=== PATIENT | female | born 1935 | race Caucasian/White ===

== ENCOUNTER 2019-08-10 09:43 | Outpatient (CLI) | payer MEDICARE, SELFPAY ==
--- NOTE | ~2019-08-10 | XR_ITS ---
XR chest 2V 08/10/2019 10:11 Indication: Dyspnea with exertion. Obstructive lung disease. Procedure: 2 view chest Comparison: 01/08/2018 Findings: Calcified mediastinal lymph nodes, consistent with chronic granulomatous disease. There is bibasilar atelectasis. No focal pneumonia, edema or effusion. There are scattered calcified granuloma s. No pneumothorax. Impression: 1: Bibasilar atelectasis. Reviewed, dictated and finalized at location A. Impression: 1: Bibasilar atelectasis.
--- NOTE | 2019-08-10 19:20 | WPDPFTINT ---
PFT Interpretation PFT Interpretation: DOS: 08/10/2019 REQUESTING: Alejandra Baker MD REASON FOR TESTING: Dyspnea on exertion PULMONARY FUNCTION TESTS Spirometry: Normal FEV1, 89%, 1.2 L. Normal FVC 85%. Mild decrease FEV1/FVC. Very low UBN49-84%. No bronchodilator was given. Lung volumes: Normal TLC, 94%. Normal RV. Increased RV/TLC ratio consistent with air trapping. Increased airway resistance 164%. Diffusion: DLCO is 65%, mildly decreased. Flow volume loop: Scooping of the expiratory limb, consistent with obstruction. IMPRESSION: Mild obstructive ventilatory impairment, severe in the small airways, no bronchodilator was given. TLC is normal with mild airtrapping, and this is new. Mild diffusion impairment. Compared to a prior study 07/04/2015, FEV1 is better, 89% now compared to 78%. Total lung capacity is higher, 94% compared to 81%. Air trapping is new. DLCO was 56%, now 65%, similar. Leleee Lugo MD
== END 2019-08-10 09:44 | disposition home or self-care (01) ==
PROVIDERS: PCP Family Medicine; Visit Provider Internal Medicine Cardiovascular Disease
DX: J98.11 Atelectasis (principal); R06.09 Other forms of dyspnea; J43.9 Emphysema, unspecified; J98.4 Other disorders of lung; G47.33 Obstructive sleep apnea (adult) (pediatric); Z99.89 Dependence on other enabling machines and devices
CPT/HCPCS: 71046; 94375; 94726; 94729

== ENCOUNTER 2020-02-15 14:04 | Outpatient (CLI) | payer MEDICARE, SELFPAY ==
--- NOTE | ~2020-02-15 | DEXA_ITS ---
Bone Density Report Name: Jewels Edmondson Age: 84 Sex: Female Ethnicity: White Date of : 1935 Indication: postmenopausal; height loss; asthma or emphysema; hysterectomy; Referring Provider: Juan Alcaraz Study: Bone densitometry was performed. Exam Date: February 15, 2020 Accession number: [id number] There is hypertrophic degenerative change of the lumbar spine, which results in higher than expected spine bone mineral density measurements. These spine BMD and T score and Z score measurements are not reflective of the patient's true general bone mineral density. Bone Density: Region BMD T-score Z-score Classification AP Spine (L2, L3) 1.135 0.7 3.5 Normal Femoral Neck (Left) 0.900 0.5 2.9 Normal Total Hip (Left) 0.966 0.2 2.4 Normal Total Hip Bilateral Avg 0.951 0.1 2.3 Normal Femoral Neck (Right) 0.886 0.3 2.8 Normal Total Hip (Right) 0.935 -0.1 2.2 Normal World Health Organization criteria for BMD impression classify patients as: Normal (T-score at or above -1.0), Osteopenia (T-score between -1.0 and -2.5), or Osteoporosis (T-score at or below -2.5). 10-year Fracture Risk: FRAX not reported because: All T-scores for Spine Total, Hip Total, Femoral Neck at or above -1.0 Treated for osteoporosis Clinical Information Provided by Patient: Is being treated for osteoporosis Has used the following medications: Fosamax (i.e. alendronate), Vitamin D, Calcium Has the following medical conditions: Asthma or Emphysema, Hysterectomy Patient maximum height was 63 Menopause Age: 52 Drinks caffeinated beverages Onset of menses at age 15 Number of children 4 Impression: The patient has normal bone mass. There is hypertrophic degenerative change of the lumbar spine, which results in higher than expected spine bone mineral density measurements. These spine BMD and T score and Z score measurements are not reflective of the patient's true general bone mineral density. Discussion: It is important to ask patients whether they are taking their medications and to encourage continued and appropriate compliance with their osteoporosis therapies to reduce fracture risk. It is also important to review their risk factors and encourage appropriate calcium and vitamin D intakes, exercise, fall prevention and other lifestyle measures. Follow-Up: Consider a repeat BMD and Vertebral Fracture Assessment (VFA) exam in 2 years or sooner if medically necessary, to reassess this patient's status. Reported by: DULCE on 02/15/2020 3:24:00 PM. Reviewed, dictated and finalized at location Yosi SHARPE
--- NOTE | ~2020-02-15 | US_ITS ---
US arterial ankle brachial ind INDICATION: Hypothyroidism TECHNIQUE: Segmental pressures and plethysmographic and Doppler waveforms of the brachial and lower e xtremity arteries were obtained. COMPARISON: None. FINDINGS: Right and left brachial artery pressures of 114 mm Hg and 134 mm Hg, respectively, are concordant (no rmal difference <= 30 mmHg). The right ankle-brachial index (THOMAS) is 1.16 (normal >= 0.9-1.0). The right great toe-brachial index (TBI) is 0.63 (normal >= 0.60). The left THOMAS is 0.97. The left TBI is 0.71. IMPRESSION: 1. Normal ankle-brachial indices. Reviewed, dictated and finalized at location B.
== END 2020-02-15 14:05 | disposition home or self-care (01) ==
PROVIDERS: PCP Family Medicine; Visit Provider Physician Assistant
DX: M81.0 Age-related osteoporosis without current pathological fracture (principal); Z78.0 Asymptomatic menopausal state; E03.9 Hypothyroidism, unspecified; R91.1 Solitary pulmonary nodule; I73.9 Peripheral vascular disease, unspecified
CPT/HCPCS: 77080; 93922

== ENCOUNTER 2020-03-20 19:18 | Emergency (ER) | payer MEDICARE, SELFPAY ==
--- NOTE | ~2020-03-20 | XR_ITS ---
XR chest 2V DATE: 03/20/2020 19:45 INDICATION: Chest and epigastric pain. Patient feels full of gas. History of atrial fibrillation and congestive heart failure. TECHNIQUE: PA and lateral views COMPARISON: Serial chest dating back to FINDINGS: Chronic large area of calcification in the right paratracheal soft tissues, likely due to o ld granulomatous disease. Heart size is within normal limits. There is aortic ectasia and unfolding. No hilar enlargement is ev ident. Chronic mild blunting of the right costophrenic angle. The lungs are moderately hyperinflated but eliezer ar of infiltrate or consolidation. Bilateral chronic rotator cuff atrophy. There is scoliosis and prominent degenerative change of the thoracic and lumbar spine. Diffuse osteop enia. IMPRESSION: No active pulmonary disease Reviewed, dictated and finalized at location A. IMPRESSION: No active pulmonary disease
[2020-03-20 19:25] VITALS: BP 173/108; PULSE 66; RESP 16; TEMP 36.9; O2SAT 99
--- NOTE | 2020-03-20 19:30 | ECG_ITS ---
Measurements Intervals [place] Rate: 102 P: ME: 0 QRS: -30 QRSD: 96 T: 62 QT: 323 QTc: 421 Interpretive Statements ATRIAL FIBRILLATION WITH RAPID VENTRICULAR RESPONSE DELAYED PRECORDIAL R/S TRANSITION BASELINE ARTIFACT- I, II, AVR, AVF, V3 ABNORMAL ECG Electronically Signed On 03-21-2020 11:54:11 CDT by Ty John D.O.
[2020-03-20 19:35] VITALS: PULSE 94; O2SAT 94
[2020-03-20 19:41] LABS: Basophils Percent Auto 0.3 % (0.2-1.2); Eosinophils Absolute Auto 0.3 K/mm3 (0-0.3); Eosinophils Percent Auto 2.2 % (0-4.4); Hematocrit 42.1 % (37.0-47.0); Hemoglobin 13.8 g/dL (12.0-15.0); Immature Granulocyte Absolute 0.06 K/mm3 (0.00-0.031); Immature Granulocyte Percent A 0.5 % (0-0.5); Lymphocytes Absolute Auto 2.23 K/mm3 (0.9-3.2); Lymphocytes Percent Auto 17.2 % (18.3-44.2); Mean Corpuscular HGB Conc 32.8 g/dl (32-36); Mean Corpuscular Hemoglobin 32.9 pg (26-34); Mean Corpuscular Volume 100.2 fl (80-100); Mean Platelet Volume 9.2 fl (7.4-10.4); Monocytes Absolute Auto 0.9 K/mm3 (0.1-0.6); Monocytes Percent Auto 6.6 % (2.6-8.5); Neutrophils Absolute Auto 9.5 K/mm3 (1.3-6.7); Neutrophils Percent Auto 73.2 % (45.5-73.1); Platelet Count Result 227 k/mm3 (150-375); Red Cell Distribution Width 12.5 % (11.5-14.5)
--- NOTE | 2020-03-20 19:47 | ED.CHESTPAIN ---
HPI - Chest Pain General Chief Complaint: Chest Pain Stated Complaint: chest pain, gas Time Seen by Provider: 03/20/20 19:46 Source: patient and family Mode of arrival: ambulatory Limitations: no limitations History of Present Illness HPI narrative: Patient is an 84-year-old female with a history of atrial fibrillation, hypertension who presents for evaluation of belching and burning sensation in the center of her chest. Patient has had pain throughout the entire day, she awakened with it this morning and it has been constant. No associated jaw pain, shoulder pain, back pain. No ripping or tearing sensation to the flanks. No associated nausea, vomiting, diaphoresis or shortness of breath. Patient initially attributed the symptoms to acid reflux as whenever she belches her symptoms resolved. Patient denies any current chest pain or burning sensation. She states her family prompted her to get checked out given the location of the pain. Patient states she feels that pain is likely consistent with her acid reflux. Patient does not smoke. No history of heart attack. Related Data Home Medications Medication Instructions Recorded Confirmed fluticasone fur. 100 mcg-umeclid 1 inhalation INHALATION DAILY 04/15/19 62.5 mcg-vilant 25 mcg inhalat.powder losartan 03/20/20 metoprolol tartrate 03/20/20 Allergies Allergy/AdvReac Type Severity Reaction Status Date / Time No Known Allergies Allergy Verified 03/20/20 19:37 Review of Systems Review of Systems: Narrative: CONSTITUTIONAL: Denies fever, chills, or sweats. EYES: Denies visual changes, redness, or discharge. ENT: Denies rhinorrhea, congestion, sore throat, or otalgia. CARDIOVASCULAR: Reports burning sensation in her chest that is now currently resolved, denies palpitations or edema RESPIRATORY: Denies cough or dyspnea. GASTROINTESTINAL: Denies abdominal pain, reports burping/belching, denies nausea, vomiting, or diarrhea. GENITOURINARY: Denies dysuria or hematuria. SKIN: Denies rash or itching. MUSCULOSKELETAL: Denies back pain, joint pain, or myalgia. NEUROLOGIC: Denies headache, numbness, or weakness. FORMERLY [facility], [facility] Past Medical History Medical History Asthma Chronic a-fib Depression Essential (primary) hypertension Heart failure Hypothyroidism, unspecified IFG (impaired fasting glucose) MONTY (obstructive sleep apnea) Vitamin B12 deficiency Family History Family History (System 04/14/19 @ 13:01 by Rajani Benton) Sibling Family history of malignant neoplasm Mother Family history of coronary artery disease Father Family history of malignant neoplasm of urinary bladder Social History Social History Smoking status: Former smoker Smoking end date: 06/03/1961 Alcohol intake: never Substance use: never Gender identity (if verbalized by the patient): Female Exam Narrative: Exam Narrative: GENERAL: Awake, alert, conversant HEAD: Normocephalic, atraumatic. EYES: PERRLA and EOMI. ENT: Nares clear, no rhinorrhea or epistaxis. Mucous membranes moist. NECK: Supple. CHEST: No respiratory distress, breathing even and non labored HEART: Regular rate, sinus rhythm ABDOMEN:Non distended, non tender, no epigastric or right upper quadrant tenderness EXTREMITIES: Normal range of motion. No edema. SKIN: Warm, dry, no rash. NEURO:No focal deficits. Alert and oriented x3 Course Vital Signs Vital signs: Vital Signs Temperature 36.9 C 03/20/20 19:25 Pulse Rate 66 03/20/20 19:25 Respiratory Rate 16 03/20/20 19:25 Blood Pressure 173/108 H 03/20/20 19:25 Pulse Oximetry 99 03/20/20 19:25 Temperature 36.2 C L 03/20/20 20:32 Pulse Rate 99 03/20/20 20:32 Respiratory Rate 22 H 03/20/20 20:32 Blood Pressure 158/98 H 03/20/20 20:32 Pulse Oximetry 96 03/20/20 20:32 MDM - Chest Pain MDM Narrative Medical deci
[2020-03-20 19:55] LABS: Anion Gap 8 mmol/L (8-16); Blood Urea Nitrogen 18 mg/dL (7-17); Carbon Dioxide 35 mmol/L (22-30); Chloride 97 mmol/L (98-107); Estimated CRCL calculation 61 ml/min; Estimated Glomerular Filt Rate > 60; Glucose 110 mg/dL (65-105); Potassium 3.8 mmol/L (3.4-5.0); Sodium 140 mmol/L (137-145)
[2020-03-20 20:06] LABS: Troponin I < 0.012 ng/mL (0.000-0.034)
[2020-03-20 20:11] LABS: INR 1.6; Prothrombin Time 18.8 Seconds (11.1-14.7)
[2020-03-20 20:12] LABS: Partial Thromboplastin Time 35.2 SECONDS (22.3-36.8)
[2020-03-20] MEDS: FAMOTIDINE 20 MG/2 ML VIAL IV PUSH (20:27)
[2020-03-20 20:32] VITALS: BP 158/98; PULSE 99; RESP 22; TEMP 36.2; O2SAT 96
[2020-03-20 21:01] VITALS: BP 141/95; PULSE 86; RESP 21; TEMP 36.3; O2SAT 97
[2020-03-20 21:30] VITALS: BP 141/95; PULSE 86; RESP 21; TEMP 36.3; O2SAT 97
== END 2020-03-20 21:33 | disposition home or self-care (01) ==
PROVIDERS: Emergency Medicine; Emergency Provider Emergency Medicine; PCP Family Medicine
DX: R07.89 Other chest pain (principal); K21.00 Gastro-esophageal reflux disease with esophagitis, without bleeding; J45.909 Unspecified asthma, uncomplicated; I48.20 Chronic atrial fibrillation, unspecified; I11.0 Hypertensive heart disease with heart failure; I50.9 Heart failure, unspecified; G47.33 Obstructive sleep apnea (adult) (pediatric); E53.8 Deficiency of other specified B group vitamins; Z87.891 Personal history of nicotine dependence
CPT/HCPCS: 36415; 71046; 80048; 84484; 85025; 85610; 85730; 93005; 96374; 99284; A9270

== ENCOUNTER 2021-03-14 09:08 | Outpatient (RCR) | payer MEDICARE, SELFPAY ==
[2021-03-14] MEDS: FAMOTIDINE 20 MG TABLET PO (10:19)
[2021-03-14] MEDS: diphenhydrAMINE HCl CAP 25 MG CAPSULE PO (10:19)
[2021-03-14] MEDS: ACETAMINOPHEN 325 MG TABLET 650 MG PO (10:19)
[2021-03-14 10:28] VITALS: BP 123/77; PULSE 80; RESP 20; TEMP 36.6; O2SAT 98
[2021-03-14 11:56] VITALS: BP 125/75
--- NOTE | 2021-03-15 14:41 | PC.NURSE ---
follow up call for covid antibody infusion, patient says she was feeling about the same. but her cough was better.
== END 2021-03-14 14:30 | disposition home or self-care (01) ==
LOC: AMCINF 09:08
PROVIDERS: PCP Physician Assistant; Referring Provider Physician Assistant; Visit Provider Internal Medicine Hematology & Oncology
DX: Z23 Encounter for immunization (principal); U07.1 COVID-19; I10 Essential (primary) hypertension; J44.9 Chronic obstructive pulmonary disease, unspecified
CPT/HCPCS: A9270; J7050; M0243

== ENCOUNTER 2023-02-19 10:23 | Outpatient (CLI) | payer MEDICARE, SELFPAY ==
[2023-02-19 11:00] VITALS: PULSE 83; O2SAT 94
[2023-02-19 11:03] VITALS: PULSE 96; O2SAT 84
[2023-02-19 11:04] VITALS: O2SAT 87
[2023-02-19 11:05] VITALS: PULSE 90; O2SAT 90
[2023-02-19 11:14] LABS: Base Excess ABG 2.7 mEq/l (+/-2.0); Fractional Inspired Oxygen 21 %; HCO3 ABG 27.6 mEq/l (22.0-26.0); Methemoglobin ABG 0.1 %THb (0-1.5); Oxygen Content ABG 17.7 %vol (16.0-22.0); Oxygen Saturation ABG 94.6 % (95.0-100.0); Oxyhemoglobin 93.8 % THb (90.0-100.0); PCO2 ABG 43.7 mmHg (35.0-45.0); PO2 ABG 71.4 mmHg (80.0-100.0); Reduced Hemoglobin 6.1 %THb (0-5.0); Total Hemoglobin 13.4 g/dL (12.0-18.0); pH ABG 7.419 (7.350-7.450)
[2023-02-19 11:15] VITALS: PULSE 86; O2SAT 94
[2023-02-19 11:16] LABS: Device ROOM AIR; Modified Allen's Test Pass; Site Drawn LEFT RADIAL
--- NOTE | 2023-02-19 12:09 | PCRCNOTE ---
HOME O2 EVAL AND ABG FAXED TO OFFICE STAFF. THIS IS A NEW O2 SET UP.
--- NOTE | 2023-02-19 12:09 | HOMEO2EVAL ---
Evaluation was performed at [facility] Home Oxygen Evaluation RC: Home Oxygen (O2) Evaluation Start: 02/19/23 12:06 Freq: Status: Active Protocol: RPE Activity Type Activity Date Activity User E-sign Co-sign Detail Recorded Client Recorded Date Recorded By Document 02/19/23 11:00 MAKENZIE [email or web address] 02/19/23 12:08 MAKENZIE Document 02/19/23 11:03 MKAENZIE [email or web address] 02/19/23 12:08 MAKENZIE Document 02/19/23 11:04 MAKENZIE [email or web address] 02/19/23 12:08 MAKENZIE Document 02/19/23 11:05 MAKENZIE [email or web address] 02/19/23 12:08 MAKENZIE Document 02/19/23 11:15 MAKENZIE [email or web address] 02/19/23 12:08 MAKENZIE 02/19/23 02/19/23 02/19/23 11:00 11:03 11:04 Home O2 Evaluation [Oxygen] -Test Phase Resting Exercise Exercise -Oxygen Delivery Room Air Room Air Nasal Cannula -Oxygen Flow Rate (L/min) 2 [Pulse Oximetry] -Pulse Oximetry (90-100 %) 94 84 L 87 L [Pulse Rate] -Pulse Rate (60-100 beats/min) 83 96 [Exercise] -Ambulation Distance (feet) -Ambulation Distance (meters) [Comments] -Home Oxygen Evaluation Comments [Charges] -Treatment Charges O2 Evaluation - Outpatient 02/19/23 02/19/23 11:05 11:15 Home O2 Evaluation [Oxygen] -Test Phase Exercise Resting -Oxygen Delivery Nasal Cannula Room Air -Oxygen Flow Rate (L/min) 3 [Pulse Oximetry] -Pulse Oximetry (90-100 %) 90 94 [Pulse Rate] -Pulse Rate (60-100 beats/min) 90 86 [Exercise] -Ambulation Distance (feet) 600 -Ambulation Distance (meters) 182.87 [Comments] -Home Oxygen Evaluation Comments PT REQUIRES 3 L HOME O2 WITH ACTIVITY. ROOM AIR AT REST [Charges] -Treatment Charges
--- NOTE | 2023-02-19 16:13 | WPDPFTINT ---
PFT Procedure Performed PFT Procedure Performed Spirometry with Pre/Post Bronchodilator Plethysmography (Lung Vol) Diffusing Cap (DLCO) Flow Vol Loop PFT Interpretation This is a pulmonary function test with pre and post-bronchodilator spirometry, plethysmography, diffusing capacity and arterial blood gas. The test was performed and results interpreted in accordance with the 2019 and 2005 ATS/ERS Task Force guidelines respectively using the Global Lung Function Initiative-2012 reference equations. Patient demonstrated good effort and cooperation. Reproducibility criteria were met. The quality of the pre bronchodilator spirometry maneuver was Grade B and post bronchodilator spirometry maneuver was Grade A. Findings: Spirometry: The contour the inspiratory and expiratory flow tracing are normal. The pre bronchodilator FVC is 1.66 L, 77% predicted. The pre bronchodilator FEV1 is 1.15 L, 70% predicted. The pre bronchodilator FEV1: FVC ratio 69%. The post bronchodilator FVC is 1.65 L, representing a 1% decrease. The post bronchodilator FEV1 is 1.17 L, representing a 2% increase. The post bronchodilator FEV1: FVC ratio 71%. Plethysmography: The total lung capacity is 3.57 L, 77% predicted. The functional residual capacity is 1.99 L, 75% predicted. The residual volume is 1.71 L, 73% predicted. Diffusing capacity: The diffusing capacity unadjusted for hemoglobin and carboxyhemoglobin is 12.7, 72% predicted. The diffusing capacity adjusted for alveolar volume is 4.71, 113% predicted. Arterial blood gas: Arterial blood gas on room air with a pH of 7.42, PaCO2 43, PAaO2 71. In comparison to previous pulmonary function testing on 08/10/2019 in which only pre bronchodilator spirometry was performed the pre bronchodilator FVC is unchanged from 1.76 L to 1.66 L. The pre bronchodilator FEV1 is unchanged from 1.20 L to 1.15 L. The total lung capacity is unchanged from 3.69 L to 3.57 L. The functional residual capacity is unchanged from 2.12 L to 1.99 L. The residual volume is unchanged from 1.86 L to 1.71 L. The diffusing capacity unadjusted for hemoglobin and carboxyhemoglobin is unchanged from 14.3 to 12.7. The diffusing capacity adjusted for alveolar volume is unchanged from 4.67 to 4.71. The rest arterial blood gas on room air is normal. Impression: The spirometry is normal without evidence of an obstructive abnormality. There is no significant improvement after inhaling a single dose of albuterol. The lung volumes are normal. The diffusing capacity is normal. In comparison to previous pulmonary function testing on 08/10/2019 there has been no significant change in the FVC, FEV1, total lung capacity, functional residual capacity, residual volume or diffusing capacity. Clinical correlation is recommended
== END 2023-02-19 10:24 | disposition home or self-care (01) ==
PROVIDERS: PCP Family Medicine; Visit Provider Internal Medicine Pulmonary Disease
DX: J45.909 Unspecified asthma, uncomplicated (principal)
CPT/HCPCS: 36600; 82375; 82805; 83050; 94060; 94618; 94726; 94729

== ENCOUNTER 2023-05-03 15:24 | Outpatient (CLI) | payer MEDICARE, SELFPAY ==
--- NOTE | ~2023-05-03 | XR_ITS ---
XR chest 2V 05/03/2023 16:00 Indication: Asthma. Procedure: PA and lateral views of the chest Comparison: Comparison to multiple prior studies sequentially, with oldest reviewed study dated 03/03. Findings: Stable smoothly marginated right paratracheal soft tissue, most likely benign vascular ecta meka. Calcified mediastinal lymph nodes, consistent with chronic granulomatous disease. Right basilar airspace disease. There is atherosclerosis and ectasia of the aorta. No significant effusion or pneum othorax. Impression: 1: Right basilar airspace disease may represent atelectasis or pneumonia. Reviewed, dictated and finalized at location B. T SUPPORT SPECIALIST Impression: 1: Right basilar airspace disease may represent atelectasis or pneumonia.
== END 2023-05-03 15:25 | disposition home or self-care (01) ==
PROVIDERS: PCP Family Medicine; Visit Provider Physician Assistant
DX: J45.909 Unspecified asthma, uncomplicated (principal); R06.02 Shortness of breath; R91.8 Other nonspecific abnormal finding of lung field
CPT/HCPCS: 71046

== ENCOUNTER 2024-07-17 12:38 | Outpatient (CLI) | payer MEDICARE, SELFPAY ==
--- OUTSIDE RECORDS SUMMARY | 2024-07-17 12:47 | XMS_ITS | Encounter Summary ---
Author Organization [facility] Address [address] [place] [address] Care Team Providers Care Automotive Service Consultant Name Role Phone Olman Min MD Primary Care Provider [phone] Encounter Details Date Type Department Care Team (Late [facility]) Description 07/14/2024 Lab Requisition [facility] - DermPath Lab [address] [place] [id number] Tessie Schwab MD [address] [facility] [address] [place] [address] Social History Tobacco Use Types Packs/Day Years Used Date Smoking Tobacco: Former Cigarettes 0.3 5 1 - 03/10/1964 Smokeless Tobacco: Never Alcohol Use Standard Drinks/Week Comments No 0 (1 standard drink = 0.6 oz pur e alcohol) Sex and Gender Information Value Date Recorded Sex Assigned at Not on file Gender Identity Not on file Sexual Orientation Not on file documented as of this encounter Plan of Treatment Not on file documented as of this encounter Goals Goal Patient Goal Type Associated Problems Recent Progress Patient-Stated? Author Medication Management General On track( 018 1:27 PM CDT) Shey Yee, RN Note: Expected end date: ongoing Interventions: Take all medications as prescribed Complete Hepatitis C therapy as prescribed Let your doctor know right away about any changes in your medications Make sure to request a refill of your medication at least one week prior to your last dose documented as of this encounter Procedures Procedure Name Priority Date/Time Associated Diagnosis Comments DERMATOPATHOLOGY Routine 07/14/2024 11:0 7 AM ROUNDHOUSE FIRER/FIREMAN documented in this encounter Results * DERMATOPATHOLOGY (07/14/2024 11:07 AM ROUNDHOUSE FIRER/FIREMAN) Case Report Dermatopathology Report Case: [id number] Authorizing Provider: eTssie Schwab MD Collected: 07/14/2024 11:07 AM Ordering Location: [facility] - Received: 07/15/2024 10:14 AM DermPath Lab Pathologist: Glenda Zuleta MD Specimens: A) - Skin, left hand B) - Skin, left jawline 12:17 PM [facility] Final Diagnosis Specimen A. 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 SKIN, left jawline: EPIDERMOID CYST, SUPERFICIAL PORTIONS OF (L72.0) 12:17 PM [facility]MAT[facility] Clinical History A: R/O SCC, Non-Healing B: R/O Cyst, R/O Atypia 12:17 PM [facility]MAT[facility] Gross Description Specimen A: Received is one formalin filled container labeled with the patient's name and designated left hand. The specimen consists of a shave biopsy measuring 9x7x1 mm. Jar 0. Specimen B: Received is one formalin filled container labeled with the patient's name and designated left jawline. The specimen consists of a shave biopsy measuring 6x5x1 mm. Jar 0. 12:17 PM [facility] Microscopic Description Specimen A. SKIN, left hand: There is hyperkeratosis alternating with parakeratosis. There is epidermal hyperplasia with disorderly maturation of keratinocytes with nuclear pleomorphism confined to the lower half of the epidermis. The epidermis is focally necrotic and covered with a scale-crust. There is fibrin at the base. Specimen B. SKIN, left jawline: Within the dermis, there are superficial portions of a space lined by epithelium that resembles normal epidermis and the infundibular portion of the hair follicle. 5 12:17 PM ROUNDHOUSE FIRER/FIREMAN DERMATOPATHOLOGY LABORATORY Disclaimer An external and internal positive and negative controls are appropriate for the histochemical, immunohistochemical and immunofluorescence stain(s) in this case (if any), except where stated explicitly. The performance characteristics of the stain(s) cited in this report were developed and its performance characteristic determined by the Dermatopathology Laboratory at [facility], directed by Dr. Saturnino Brady. These tests need not be, and therefore are not, approved by the [place] Food and Drug Administration. The tests are used for clinical purposes. Billing Codes Specimen Charges Stain Charges 30499 30667 1 1 5 12:17 PM [facility]HOU[facility] FIRER/FIREMAN DERMATOPATHOLOGY LABORATORY Embedded Images 12:17 PM [facility]HOU[facility] FIRER/FIREMAN DERMATOPATHOLOGY LABORATORY Pathology/Cytology TISSUE SPECIMEN FROM SKIN / Unknown 07/14/2024 11:07 AM R[employer]HOUSE FIRER/FIREMAN 07/15/2024 10:14 AM R[employer]HOUSE FIRER/FIREMAN Miscellaneous samples (specimen) TISSUE SPECIMEN FROM SKIN / Unknown 07/14/2024 11:07 AM ROUNDHOUSE FIRER/FIREMAN 07/15/2024 10:14 AM R[employer]HOUSE FIRER/FIREMAN Tessie Schwab MD LAB - PATHOLOGY/CYTO LOGY ORDERABLES DERMATOPATHOLOGY LABORATORY [facility] - Department of Dermatology [address], [address] [phone] documented in this encounter Visit Diagnoses Not on filedocumented in this encounter Care Teams Automotive Service Consultant Relationship Specialty Start Date End Date Olman Min MD [address] [place] [address] PCP - General 03/10/18 documented as of this encounter
--- OUTSIDE RECORDS SUMMARY | 2024-07-17 12:47 | XMS_ITS | Data Portability ---
Author Organization [employer], [facility] Address [address] [address] Assessment No assessment recorded. Plan of Treatment Reminders Order Date Submit Date Provider Last Modified By Organization Details Last Modified Time Details Appointments None recorded. Lab None recorded. Referral None recorded. Procedures None recorded. Surgeries None recorded. Imaging XR, shoulder 2023 024 [email or web address] Not available 20:46:12 Medication Orders None recorded. Patient TargetsNo targets recorded. Patient InstructionsNo instructions recorded. Reason for Referral None Reported. Results Created Date Observation Date Name Description Value Unit Range Abnormal Flag Note LastModifiedBy Organization Detail LastModifiedTime 03/26/2008/27/2022 XR, shoul obed, 2 or more view No observ ation record ed. Not Available 14:34:45 03/26/2008/27/2022 XR, shoul obed, 2 or more view No observ ation record ed. [email or web address] Not Available 14:34:46 Result Notes None recorded. Procedures Surgical History Date Name Laterality Status Provider Name and Address Organization Details Recorded Time Radiographs completed Alexandre Thomas [address] [facility] [address], [place], [address], [employer] 03/30/2024 17:40:04 Imaging Results Imaging Date Name Status LastModified by Organiz ation Details LastModified Time 08/27/2022 XR, shoulder, 2 or more view completed [email or web address] Information not available 04/07/2024 14:34:45 08/27/2022 XR, shoulder, 2 or more view completed [email or web address] Information not available 04/07/2024 14:34:46 Procedure Notes None recorded. Medical Equipment None Reported. Allergies No known drug allergies Medications Name Sig Start Date Stop Date Status Note LastModified by Organization Details LastModified Time furosemide 40 mg tablet TAKE 1 TABLET BY MOUTH EVERY DAY active Not Available Not Available No t Available prednisone 10 mg tablet TAKE 4 TABS X 3 DAYS, THEN 3 TABS X 3 DAYS, THEN 2 TABS X 3 DAYS, THEN 1 TAB X 3 DAYS active Not Available Not Available No t Available albuterol sulfate 2.5 mg/3 mL (0.083 %) solution for nebulization USE 1 VIAL PER NEBULIZER EVERY 4-6 HOURS NEEDED FOR SHORTNESS OF BREATH OR WHEEZING active Not Available Not Available Not Available triamcinolon e acetonide 0.1 % topical cream APPLY TO AFFECTED AREA TWICE A DAY NEEDED active Not Available Not Available No t Available amoxicillin 500 mg tablet TAKE 1 TABLET BY MOUTH EVERY 8 HOURS FOR 10 DAYS active Not Available Not Available No t Available levothyroxin e 75 mcg tablet TAKE 1 TABLET BY MOUTH EVERY DAY active Not Available Not Available No t Available ciclopirox 8 % topical solution APPLY SOLUTION TOPICALLY TO TOENAILS ONCE DAILY AT BEDTIME active Not Available Not Available N ot Available nitrofuranto in macrocrystal 100 mg capsule TAKE 1 CAPSULE ORALLY EVERY 12 HOURS FOR 5 DAYS MUST ADMINISTER WITH A MEAL/FOOD active Not Available Not Available No t Available metoprolol tartrate 50 mg tablet TAKE 1 TABLET BY MOUTH EVERY 12 HOURS active Not Available Not Available No t Available pravastatin 20 mg tablet TAKE 1 TABLET BY MOUTH EVERY DAY active Not Available Not Available No t Available doxycycline hyclate 100 mg tablet TAKE 1 CAPSULE BY MOUTH TWICE A DAY active Not Available Not Available No t Available valsartan 160 mg tablet TAKE 1 TABLET BY MOUTH EVERY DAY active Not Available Not Available No t Available duloxetine 60 mg capsule,viktor yed release TAKE 1 CAPSULE BY MOUTH EVERY DAY active Not Available Not Available No t Available losartan active Not Available Not Avai lable Not Available Eliquis 5 mg tablet TAKE 1 TABLET BY MOUTH TWICE A DAY active Not Available Not Available No t Available Trelegy Ellipta 200 mcg-62.5 mcg-25 mcg powder for inhalation INHALE 1 PUFF DAILY active Not Available Not Available N ot Available Vitals Date Recorded Body height Body mass index (BMI) Body weight Provider Name and Address Organization Details Last Updated DateTime 03/26/2024 154.94 cm 41.9 kg/m2 590535.51 g [facility] 03/26/2024 16:34:02 Social History Question Answer Notes LastModified by Organizat ion Details LastModified Time Tobacco Smoking Status Never Smoker Elba burgess, [facility] 03/26/2024 16:59:37 What Is Your Level Of Alcohol Consumption? None Information not available 03/26/2024 Are You Currently Employed? No Retired [email or web address] Information not available 03/26/2024 What Is Your Relationship Status? [email or web address] Information not available 03/26/2024 Sex: Unknown Functional Status Question Answer Note LastModified by Organization D etails LastModified Time What is your exercise level? None [email or web address] Information not available 03/26/2024 Mental Status None recorded. Family History Relationship Description Onset Age of this Age Resolved Age Notes LastModified by Organization Details LastModified Time Unspecified Relation Arthritis [email or web address] Not available 03/04 16:58:29 Unspecified Relation Heart disease [email or web address] Not available 03/26 16:58:40 Unspecified Relation Hypercholest erolemia [email or web address] Not available 03/26 16:58:48 Unspecified Relation Asthma [email or web address] Not available 2023 16:58:54 Unspecified Relation Hypertensive disorder [email or web address] Not available 03/26 16:59:02 Unspecified Relation Malignant neoplastic disease [email or web address] Not available 03/26 16:59:12 Notes:thyroid issue not note d-unspecified Medical History Condition Response Hernia Y Arthritis Y High Cholesterol Y Skin Cancer Y Tendon Tear Y Asthma Y Heart Disease Y Hypertension Y Gynecological HistoryNo gynecological history recorded. Obstetrics History GPAL:G 0 P 0 0 0 0 Past Encounters Encounter ID Performer Location Encounter Start Date Encounter Closed Date Diagnosis/Indication Diagnosis SNOMED-CT Code Diagnosis ICD10 Code Diagnosis Note [id number] Alexandre Thomas [facility] [address] [place] [address] 03/26/2024 13:47:24 03/26/2024 15:17:56 Bilateral shoulder joint pain 3196967501 [id number] M25.511 M25.512 Bilateral shoulder osteoarthritis 0556103810 42844 M19.011 M19.012 We had a lengthy discussion regarding treatment options. We did discuss the role of [facility] for her shoulders, at this time the recommenda tion would be for continued conservati ve care with corticoste roids since she is getting almost 6 weeks of relief. I would recommend that she continue this until she reaches a point where steroids are no longer beneficial . She can think about Biologics to see if this would help with her osteoarthr itis pain from the joint. She understand s and agrees to the plan. Health Concerns Section Related Observation LastModified by Organization Detai ls LastModified Time None Recorded Concern Status LastModified by Organization Details LastModified Time None Recorded Advance Directives Directive None Recorded Payers Encounter Date Sequence Insurance Name Policy Number Policy Coleman Covered Member ID Coleman Member ID Guarantor Name 03/26/2024 1 [employer] ([id number] Jewels Edmondson [id number] Jewels Edmondson Notes Date Note Type Note Provider Name and Address Organization Details Recorded Time 03/26/2024 text/html 88-year-old sina quarles presents today chief complaint bilateral shoulder pain.She describes pain in the bilateral shoulders over the past 2 to 3 years. She states she has noticed increased grinding popping and limited range of motion. She has been evaluated by her local orthopedic surgeon who treated her with an intra-articular corticosteroid injection and this provided approximately 6 months of relief. She has been evaluated by a surgeon who is recommended shoulder replacement. However she wishes to try to avoid surgery if possible. She rates her pain anywhere from a 5 to a 3 out of 10 based on her activity. She does state for approximately 3 to 4 months following the injection she has nearly complete relief and then some relief lasting almost 6 months. Alexandre Thomas [address], [place], [address], [facility] [employer], [facility] 03/30/2024 17:41:33 OBGyn Episode No OBEpisode recorded.
--- OUTSIDE RECORDS SUMMARY | 2024-07-17 12:48 | XMS_ITS | Referral Summary ---
Author Organization [facility] Address [address] [place] [address] Care Team Providers Care Surveying Technician Name Role Phone Olman Min MD Primary Care Provider [phone] Source Comments [facility],non-owned Affiliates and Associated Physician Practices is amultiple site organization consisting of ambulatory clinics and hospital sitesin [place], [place], [place] and [place]. This disclosure is being madepursuant to the Care Everywhere program and may not contain all information available regarding this patient. Last updated 18.[facility] Encounters Date Type Department Care Team Description 07/14/2024 Lab Requisition [facility] - DermPath Lab [address], [place] [address] Tessie Schwab MD from Last 3 Months Allergies No known active allergies Medications * Be aware that medications may not be up to date on this document. Alwaysverify current medications with the patient. Medication Sig Dispensed Refills Start Date End Date Status ALBUTEROL IN Inhale by mouth 4 times daily as needed Active pravastatin (PRAVACHOL) 20 MG tablet Take 20 mg by mouth at bedtime Active metoprolol tartrate (LOPRESSOR) 25 MG tablet Take 25 mg by mouth 2 times daily Active losartan (COZAAR) 100 MG tablet Take 100 mg by mouth once daily Active levothyroxine (SYNTHROID) 75 MCG tablet Take 75 mcg by mouth daily before breakfast Active DULoxetine (CYMBALTA) 60 MG capsule Take 60 mg by mouth once daily Active Vitamin D3, cholecalciferol, 2000 UNITS tablet Take 2,000 Units by mouth once daily Active cyanocobalamin (VITAMIN B-12) 1000 MCG tablet Take 1,000 mcg by mouth once daily Active acetaminophen CR (TYLENOL ARTHRITIS PAIN) 650 MG tablet Take 650 mg by mouth every 8 hours as needed for Pain Active ascorbic acid (VITAMIN C) 250 MG tablet Take by mouth once daily Active BIOTIN PO Take by mouth once daily Active apixaban (ELIQUIS) 5 MG tablet Take 5 mg by mouth 2 times daily Active Calcium Citrate-Vitamin D (CALCIUM + D PO) Take by mouth once daily Active Fluticasone-Umeclidin -Vilant (TRELEGY ELLIPTA) 100-62.5-25 MCG/INH AEPB Inhale by mouth once daily Active Active Problems Problem Noted Date Diagnosed Date Chronic 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 coma Social History Tobacco Use Types Packs/Day Years Used Date Smoking Tobacco: Former Cigarettes 0.3 5 1 - 03/10/1964 Smokeless Tobacco: Never Alcohol Use Standard Drinks/Week Comments No 0 (1 standard drink = 0.6 oz pur e alcohol) Sex and Gender Information Value Date Recorded Sex Assigned at Not on file Gender Identity Not on file Sexual Orientation Not on file Last Filed Vital Signs Vital Sign Reading Time Taken Comments Blood Pressure 147/90 03/10/2018 1:27 PM CDT Pulse 93 03/10/2018 1:27 PM CDT Temperature 36.2 C (97.2 F) 03/10/2018 1:27 PM CDT Respiratory Rate 18 03/10/2018 1:27 PM CDT Oxygen Saturation 95% 03/10/2018 1:27 PM CDT Inhaled Oxygen Concentration - - Weight 108.9 kg (240 lb) 03/10/2018 1:27 PM CDT Height 154.9 cm (5' 1 ) 03/10/2018 1:27 PM CDT Body Mass Index 45.35 03/10/2018 1:27 PM CDT Plan of Treatment Not on file Goals Goal Patient Goal Type Associated Problems Recent Progress Patient-Stated? Author Medication Management General On track( 1:27 PM CDT) No Shey Zuleta RN Note: Expected end date: ongoing Interventions: Take all medications as prescribed Complete Hepatitis C therapy as prescribed Let your doctor know right away about any changes in your medications Make sure to request a refill of your medication at least one week prior to your last dose Procedures Procedure Name Priority Date/Time Associated Diagnosis Comments DERMATOPATHOLOGY Routine 07/14/2024 11:0 7 AM SHOE HANDLER from Last 3 Months Results * DERMATOPATHOLOGY (07/14/2024 11:07 AM SHOE HANDLER) Case Report Dermatopathology Report Case: [id number] Authorizing Provider: Tessie Schwab MD Collected: 07/14/2024 11:07 AM Ordering Location: [facility] - Received: 07/15/2024 10:14 AM DermPath Lab Pathologist: Glenda Zuleta MD Specimens: A) - Skin, left hand B) - Skin, left jawline 12:17 PM [facility] Final Diagnosis Specimen A. 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 SKIN, left jawline: EPIDERMOID CYST, SUPERFICIAL PORTIONS OF (L72.0) 12:17 PM [facility] Clinical History A: R/O SCC, Non-Healing B: R/O Cyst, R/O Atypia 12:17 PM [facility] Gross Description Specimen A: Received [...] measuring 6x5x1 mm. Jar 0. 12:17 PM [facility] Microscopic Description Specimen A. SKIN, [...] of the hair follicle. 5 12:17 PM [facility] Disclaimer An external and internal positive and negative controls are appropriate for the histochemical, immunohistochemical and immunofluorescence stain(s) in this case (if any), except where stated explicitly. The performance characteristics of the stain(s) cited in this report were developed and its performance characteristic determined by the Dermatopathology Laboratory at [facility], directed by Dr. Saturnino Brady. These tests need not be, and therefore are not, approved by the [place] Food and Drug Administration. The tests are used for clinical purposes. Billing Codes Specimen Charges Stain Charges 73704 80191 1 1 12:17 PM [facility] Embedded Images 12:17 PM [facility] Pathology/Cytology TISSUE SPECIMEN FROM SKIN / Unknown 07/14/2024 11:07 AM SHOE HANDLER 07/15/2024 10:14 AM SHOE HANDLER Miscellaneous samples (specimen) TISSUE SPECIMEN FROM SKIN / Unknown 07/14/2024 11:07 AM SHOE HANDLER 07/15/2024 10:14 AM SHOE HANDLER Tessie Schwab MD LAB - PATHOLOGY/CYTO LOGY ORDERABLES DERMATOPATHOLOGY LABORATORY [facility] - Department of Dermatology [facility] Medicine [address] [place] [address], [address] [phone] from Last 3 Months Care Teams Surveying Technician Relationship Specialty Start Date End Date Olman Min MD [address] [place] [address] PCP - General 03/10/18
--- OUTSIDE RECORDS SUMMARY | 2024-07-17 12:48 | XMS_ITS | Patient Health Summary ---
Author Organization [facility] Address [address] [place] [address] Care Team Providers Care Vegetable I Farmworker Name Role Phone Olman Min MD Primary Care Provider [phone] Note from [facility],non-owned Affiliates and Associated Physician Practices is amultiple site organization consisting of ambulatory clinics and hospital sitesin [place], [place], [place] and [place]. This disclosure is being madepursuant to the Care Everywhere program and may not contain all information available regarding this patient. Last updated 18.[facility] Allergies No known active allergies Medications * Be aware that medications may not be up to date on this document. Alwaysverify current medications with the patient. * ALBUTEROL IN Inhale by mouth 4 times daily as needed * pravastatin (PRAVACHOL) 20 MG tablet Take 20 mg by mouth at bedtime * metoprolol tartrate (LOPRESSOR) 25 MG tablet Take 25 mg by mouth 2 times daily * losartan (COZAAR) 100 MG tablet Take 100 mg by mouth once daily * levothyroxine (SYNTHROID) 75 MCG tablet Take 75 mcg by mouth daily before breakfast * DULoxetine (CYMBALTA) 60 MG capsule Take 60 mg by mouth once daily * Vitamin D3, cholecalciferol, 2000 UNITS tablet Take 2,000 Units by mouth once daily * cyanocobalamin (VITAMIN B-12) 1000 MCG tablet Take 1,000 mcg by mouth once daily * acetaminophen CR (TYLENOL ARTHRITIS PAIN) 650 MG tablet Take 650 mg by mouth every 8 hours as needed for Pain * ascorbic acid (VITAMIN C) 250 MG tablet Take by mouth once daily * BIOTIN PO Take by mouth once daily * apixaban (ELIQUIS) 5 MG tablet Take 5 mg by mouth 2 times daily * Calcium Citrate-Vitamin D (CALCIUM + D PO) Take by mouth once daily * Lqivycnqjao-Pizqaojgw-Ljtwfu (TRELEGY ELLIPTA) 100-62.5-25 MCG/INH AEPB Inhale by mouth once daily Active Problems Problem Noted Date Diagnosed Date Chronic 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 coma 018 Social History Tobacco Use Types Packs/Day Years [...] Mass Index 45.35 03/10/2018 1:27 PM CDT Procedures * DERMATOPATHOLOGY(Performed 07/14/2024) * DERMATOPATHOLOGY(Performed 11/11/2023) * DERMATOPATHOLOGY(Performed 10/02/2023) * DERMATOPATHOLOGY(Performed 07/20/2021) * HEPATITIS C RNA QUANTITATIVE(Performed 03/11/2018) Performed for Hepatitis C antibody test positive * COMPREHENSIVE METABOLIC PANEL(Performed 03/11/2018) Performed for Hepatitis C antibody test positive * CBC W AUTO DIFFERENTIAL(Performed 03/11/2018) Performed for Hepatitis C antibody test positive * PT-INR(Performed 01/09/2013) Performed for Atrial fibrillation (HCC) * PT-INR(Performed 12/10/2012) Performed for Atrial fibrillation (HCC) * PT-INR(Performed 11/10/2012) Performed for Atrial fibrillation (HCC) * GROSS + MICRO EXAM(Performed 04/08/2007) Results * DERMATOPATHOLOGY (07/14/2024 11:07 AM [facility]) Only the most recent of4 resultswithin the time period is included. Case Report Dermatopathology Report Case: [id number] Authorizing Provider: Tessie Schwab MD Collected: 07/14/2024 11:07 AM Ordering Location: [facility] - Received: 07/15/2024 10:14 AM DermPath Lab Pathologist: Glenda Zuleta MD Specimens: A) - Skin, left hand B) - Skin, left jawline 12:17 PM [facility] DERMATOPATHOLOGY LABORATORY Final Diagnosis Specimen A. 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 SKIN, left jawline: EPIDERMOID CYST, SUPERFICIAL PORTIONS OF (L72.0) 12:17 PM [facility] DERMATOPATHOLOGY LABORATORY Clinical History A: R/O SCC, Non-Healing B: R/O Cyst, R/O Atypia 12:17 PM [facility] DERMATOPATHOLOGY LABORATORY Gross Description Specimen A: [...] measuring 6x5x1 mm. Jar 0. 12:17 PM [facility] DERMATOPATHOLOGY LABORATORY Microscopic Description Specimen A. [...] of the hair follicle. 5 12:17 PM [facility] DERMATOPATHOLOGY LABORATORY Disclaimer An external and internal positive and negative controls are appropriate for the histochemical, immunohistochemical and immunofluorescence stain(s) in this case (if any), except where stated explicitly. The performance characteristics of the stain(s) cited in this report were developed and its performance characteristic determined by the Dermatopathology Laboratory at [facility], directed by Dr. Saturnino Brady. These tests need not be, and therefore are not, approved by the [place] Food and Drug Administration. The tests are used for clinical purposes. Billing Codes Specimen Charges Stain Charges 27893 54973 1 1 5 12:17 PM [facility] DERMATOPATHOLOGY LABORATORY Embedded Images 5 12:17 PM [facility] DERMATOPATHOLOGY LABORATORY Pathology/Cytology TISSUE SPECIMEN FROM SKIN / Unknown 07/14/2024 11:07 AM SAW SUPERINTENDENT 07/15/2024 10:14 AM SAW SUPERINTENDENT Miscellaneous samples (specimen) TISSUE SPECIMEN FROM SKIN / Unknown 07/14/2024 11:07 AM SAW SUPERINTENDENT 07/15/2024 10:14 AM SAW SUPERINTENDENT Tessie Schwab MD LAB - PATHOLOGY/CYTO LOGY ORDERABLES DERMATOPATHOLOGY LABORATORY [facility] - Department of Dermatology [address], [address] [phone] * HEPATITIS C RNA QUANTITATIVE (03/11/2018 4:20 PM CDT) Hepatitis C Virus RNA, Quantitative Real Time PCR <15 NOT DETECTED NOT DETECTED IU/mL [facility] Hepatitis C Virus RNA, Quantitative Real Time PCR <1.18 NOT DETECTED NOT DETECTED Log IU/mL [facility] See Note [facility] Comment: This test was performed using Real-Time Polymerase Chain Reaction. Reportable Range: 15 IU/mL to 100,000,000 IU/mL (1.18 Log IU/mL to 8.00 Log IU/mL). The analytical performance characteristics of this assay have been determined by [facility]. The modifications have not been cleared or approved by the FDA. This assay has been validated pursuant to the CLIA regulations and is used for clinical purposes. For more information on this test, go to: http://education.eLibs.com/faq/WPL89y4 (This link is being provided for informational/ educational purposes only.) Test Performed at: [facility] [id number] [facility] [place] [address] KAYLI BHATT DO,MPH Blood BLOOD SPECIMEN / Unknown 03/11/2018 4:20 PM CDT 03/11/2018 4:20 PM CDT Archana Carver DIRECTOR PLANS-REGISTERED NURSE FLOAT POOL LAB - CHEMIS TRY ORDERABLES [facility] [address] [place] [address] * CBC WITH DIFFERENTIAL (03/11/2018 4:20 PM CDT) White Blood Cell Count 6.5 3.8 - 10.8 Thousand/u L [facility] RBC 3.97 3.80 - 5.10 Million/uL [facility] Hemoglobin 13.1 11.7 - 15.5 g/dL [facility] Hematocrit 38.3 35.0 - 45.0 % [facility] MCV 96.5 80.0 - 100.0 fL [facility] MCH 33.0 27.0 - 33.0 pg [facility] MCHC 34.2 32.0 - 36.0 g/dL [facility] RDW 11.8 11.0 - 15.0 % [facility] Platelet Count 243 140 - 400 Thousand/u L [facility] MPV 9.6 7.5 - 12.5 fL [facility] Neutrophil Absolute 3679 1500 - 7800 cells/uL [facility] Lymphocytes Absolute 2015 850 - 3900 cells/uL [facility] Absolute Monocytes 520 200 - 950 cells/uL [facility] Eosinophils Absolute 254 15 - 500 cells/uL [facility] Basophils Absolute 33 0 - 200 cells/uL [facility] Granulocytes % 56.6 % [facility] Lymphocytes % 31.0 % [facility] Monocytes % 8.0 % [facility] Eosinophils % 3.9 % [facility] Basophils % 0.5 % [facility] Comment: Test Performed at: [facility] [address] [address] [facility] [place] [address] KAYLI BHATT DO,MPH Blood BLOOD SPECIMEN / Unknown 03/11/2018 4:20 PM CDT 03/11/2018 4:20 PM CDT Archana Carver DIRECTOR PLANS-REGISTERED NURSE FLOAT POOL LAB - HEMATO LOGY ORDERABLES [facility] [address] [place] [address] * (ABNORMAL) COMPREHENSIVE METABOLIC PANEL (03/11/2018 4:20 PM CDT) Glucose 118(H) 65 - 99 mg/dL [facility] Comment: Fasting reference interval For someone without known diabetes, a glucose value between 100 and 125 mg/dL is consistent with prediabetes and should be confirmed with a follow-up test. BUN 15 7 - 25 mg/dL [facility] Creatinine 0.67 0.60 - 0.88 mg/dL [facility] Comment: For patients >49 years of age, the reference limit for Creatinine is approximately 13% higher for people identified as -Thai. eGFR by MDRD 83 > OR = 60 mL/min/1 .73m2 [facility] eGFR by MDRD 96 > OR = 60 mL/min/1 .73m2 [facility] BUN/Creatinine Ratio NOT APPLICABLE 6 - 22 (calc) [facility] Sodium 141 135 - 146 mmol/L [facility] Potassium 4.2 3.5 - 5.3 mmol/L [facility] Chloride 102 98 - 110 mmol/L [facility] CO2 31 20 - 32 mmol/L [facility] Calcium 9.7 8.6 - 10.4 mg/dL [facility] Protein Total 7.1 6.1 - 8.1 g/dL [facility] Albumin 4.6 3.6 - 5.1 g/dL [facility] Globulin Total 2.5 1.9 - 3.7 g/dL (calc) [facility] Albumin/Globulin Ratio 1.8 1.0 - 2.5 (calc) [facility] Bilirubin Total 0.7 0.2 - 1.2 mg/dL [facility] Alkaline Phosphatase 58 33 - 130 U/L [facility] AST 21 10 - 35 U/L [facility] ALT 13 6 - 29 U/L [facility] Comment: Test Performed at: [facility] [address] [address] [address] KAYLI BHATT DO,MPH Blood BLOOD SPECIMEN / Unknown 03/11/2018 4:20 PM CDT 03/11/2018 4:20 PM CDT Archana Carver DIRECTOR PLANS-REGISTERED NURSE FLOAT POOL LAB - CHEMIS TRY ORDERABLES [facility] [address] [place] [address] * (ABNORMAL) PT-INR (01/09/2013 3:46 PM CDT) Only the most recent of3 resultswithin the time period is included. PT 15.4(H) 10.5 - 12.8 sec 01/09/2013 3:58 PM CDT [facility] INR 1.84(L) 2 - 3 01/09/2013 3:58 PM CDT [facility] Blood BLOOD SPECIMEN / Unknown Lab Venipuncture / Unknown 01/09/2013 3:46 PM CDT 01/09/2013 3:46 PM CDT Narrative [facility] - 01/09/2013 3:58 PM CDT Recommended therapeutic INR ranges for Oral Anticoagulant Therapy: 2.0-3.0 For prevention of Thrombosis or Embolism and treatment of Venous Thrombosis. 2.5- 3.5 for prevention of Recurrent Embolism or treatment of patients with Mechanical Prosthetic Heart Valves. Sugar Guy MD LAB - COAGULATION OR DERABLES Performing Organization Address [facility] Co de Phone Number [facility] [address] * GROSS + MICRO EXAM (04/08/2007 10:56 AM SAW SUPERINTENDENT) Result CASE NUMBER [id number] Comment: ORDERING PHYSICIAN WENDI SANCHES SPECIMEN TYPE Implant-R Patella / Debris R Knee Date of Surgery 04/08/2007 0814 Surgeon SABI SANCHES M.D. SPECIMEN SOURCE Patellar implant and patellar debris, right knee. *Pre Op Dx Joint implant. GROSS DESCRIPTION Labeled patella implant and patellar debris right knee is a specimen which includes a circular white plastic disc which is convex on one side and flat on the other with concentric rings embossed in the plastic. The remaining tissue consists of multiple pieces of soft tissue up to 3 cm. in maximum dimension. Portion of this tissue submitted for microscopic. Grossed by JANNETTE TROTTER M.D. *MICROSCOPIC EXAM Sections show benign synovial and fibrous tissue fragments some of which have associated small shavings of calcified material. The synovium show inflammatory changes. Read by JANNETTE B. ROSE MARIE, M.D. DIAGNOSIS TISSUE FROM RIGHT KNEE - SYNOVIAL FRAGMENTS WITH CHRONIC INFLAMMATION AND CALCIFIED FRAGMENTS. - PATELLAR IMPLANT RECEIVED (NO SECTIONS). RELEASED BY JANNETTE TROTTER MD MISCELLANEOUS SAMPLES / Unknown 04/08/2007 10:56 AM SAW SUPERINTENDENT 04/08/2007 11:43 AM SAW SUPERINTENDENT Historical Provider LAB - PATHOLOGY/C YTOLOGY ORDERABLES Care Teams Vegetable I Farmworker Relationship Specialty Start Date End Date Olman Min MD [address] [place] [address] PCP - General 03/10/18
--- OUTSIDE RECORDS SUMMARY | 2024-07-17 12:48 | XMS_ITS | Encounter Summary ---
Author Organization [facility] Address [address] [place] [address] Care Team Providers Care Home Care Companion Name Role Phone Olman Min MD Primary Care Provider [phone] Encounter Details Date Type Department Care Team (Late [facility]) Description 10/02/[address] [facility] - DermPath Lab [address] [facility] [place] [address] Tessie Schwab MD [address] [facility] [address] [place] [address] Social History Tobacco Use Types Packs/Day Years [...] Priority Date/Time Associated Diagnosis Comments DERMATOPATHOLOGY Routine 10/02/2023 10:4 2 AM CDT documented in this encounter Results * DERMATOPATHOLOGY (10/02/2023 10:42 AM CDT) Case Report Dermatopathology Report Case: [id number] Authorizing Provider: Tessie Schwab MD Collected: 10/02/2023 10:42 AM Ordering Location: [facility] - Received: 10/03/2023 08:57 AM DermPath Lab Pathologist: Sade Zuleta MD Specimen: Skin, left forearm 12:49 PM CDT DERMATOPATHOLOGY LABORATORY Final Diagnosis Specimen A. 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 The specimen consists of a shave biopsy measuring 7x7x2 mm. Jar 0. 12:49 PM CDT DERMATOPATHOLOGY LABORATORY Microscopic Description Specimen A. SKIN, left forearm: Sections show an endo exophytic crateriform lesion with a keratotic plug, formed by confluent follicle-like structures with relatively large keratinocytes and neutrophilic abscesses. 12:49 PM CDT DERMATOPATHOLOGY LABORATORY Disclaimer An external and internal positive and negative controls are appropriate for the histochemical, immunohistochemical and immunofluorescence stain(s) in this case (if any), except where stated explicitly. The performance characteristics of the stain(s) cited in this report were developed and its performance characteristic determined by the Dermatopathology Laboratory at [facility], directed by Dr. Saturnino Brady. These tests need not be, and therefore are not, approved by the [place] Food and Drug Administration. The tests are used for clinical purposes. Billing Codes Specimen Charges Stain Charges 34231 1 12:49 PM CDT DERMATOPATHOLOGY LABORATORY Embedded Images 12:49 PM CDT DERMATOPATHOLOGY LABORATORY Pathology/Cytolo gy TISSUE SPECIMEN FROM SKIN / Unknown 10/02/2023 10:42 AM CDT 10/03/2023 8:57 AM CDT Tessie Schwab MD LAB - PATHOLOGY/CYTO LOGY ORDERABLES DERMATOPATHOLOGY LABORATORY [facility] - Department of Dermatology [facility] Medicine [address] [place] [address], [address] [phone] documented in this encounter Visit Diagnoses Not on filedocumented in this encounter Care Teams Home Care Companion Relationship Specialty Start Date End Date Olman Min MD [address] [place] [address] PCP - General 03/10/18 documented as of this encounter
--- OUTSIDE RECORDS SUMMARY | 2024-07-17 12:48 | XMS_ITS | Encounter Summary ---
Author Organization [facility] Address [address] [facility] [place] [address] Care Team Providers Care Ict Programmer Name Role Phone Olman Min MD Primary Care Provider [phone] Encounter Details Date Type Department Care Team (Late [facility]) Description 11/11/2023 Lab Requisition [facility] - DermPath Lab [address] [facility] [place] [address] Tessie Schwab MD [address] [facility] [address] [place] [address] Social History Tobacco Use Types Packs/Day Years [...] Priority Date/Time Associated Diagnosis Comments DERMATOPATHOLOGY Routine 11/11/2023 3:29 PM CDT documented in this encounter Results * DERMATOPATHOLOGY (11/11/2023 3:29 PM CDT) Case Report Dermatopathology Report Case: [id number] Authorizing Provider: Tessie Schwab MD Collected: 11/11/2023 03:29 PM Ordering Location: [facility] - Received: 11/12/2023 01:09 PM DermPath Lab Pathologist: Mónica Ramirez MD Specimen: Skin, left forearm 2:34 PM CDT DERMATOPATHOLOGY LABORATORY Final Diagnosis Specimen A. SKIN, left forearm: SQUAMOUS CELL CARCINOMA, WELL DIFFERENTIATED (C44.629) NOT PRESENT AT MARGIN DERMAL SCAR (L90.5) 2:34 PM CDT DERMATOPATHOLOGY LABORATORY Clinical History SCC bx proven 2:34 PM CDT DERMATOPATHOLOGY LABORATORY Gross Description Specimen A: Received is one formalin filled container labeled with the patient's name and designated left forearm.The specimen consists of an ellipse measuring 64p84y0 mm and is oriented with the suture/notch at the 12 o'clock position labeled on the requisition as notch. The 12 to 6 o'clock margin is inked green. The 6 o'clock to 12 o'clock margin is inked red. The 12 o'clock tip is submitted in cassette 1. The 6 o'clock tip is submitted in cassette 2. The remainder of the ellipse is serially sectioned and submitted in cassettes 3-4. Jar 0. 2:34 PM CDT DERMATOPATHOLOGY LABORATORY Microscopic Description Specimen A. SKIN, left forearm: Arising in the epidermis and extending into the dermis there are irregularly shaped aggregates of keratinocytes showing evidence of premature cornification. This lesion is not present at the margin of the specimen. There are fibroblasts and collagen bundles oriented parallel to the skin surface with elongated blood vessels, some of which are oriented perpendicular to the skin surface. 2:34 PM CDT DERMATOPATHOLOGY LABORATORY Disclaimer An external and internal positive and negative controls are appropriate for the histochemical, immunohistochemical and immunofluorescence stain(s) in this case (if any), except where stated explicitly. The performance characteristics of the stain(s) cited in this report were developed and its performance characteristic determined by the Dermatopathology Laboratory at [facility], directed by Dr. Saturnino Brady. These tests need not be, and therefore are not, approved by the [place] Food and Drug Administration. The tests are used for clinical purposes. Billing Codes Specimen Charges Stain Charges 25945 1 4 2:34 PM CDT DERMATOPATHOLOGY LABORATORY Embedded Images 4 2:34 PM CDT DERMATOPATHOLOGY LABORATORY Pathology/Cytolo gy TISSUE SPECIMEN FROM SKIN / Unknown 11/11/2023 3:29 PM CDT 11/12/2023 1:09 PM CDT Tessie Schwab MD LAB - PATHOLOGY/CYTO LOGY ORDERABLES Performing Organization Address City/State/[facility] Co de Phone Number DERMATOPATHOLOGY LABORATORY [facility] - Department of Dermatology [facility] Medicine [address] [place] [address], [address] [phone] documented in this encounter Visit Diagnoses Not on filedocumented in this encounter Care Teams Ict Programmer Relationship Specialty Start Date End Date Olman Min MD [address] [place] [address] PCP - General 03/10/18 documented as of this encounter
--- OUTSIDE RECORDS SUMMARY | 2024-07-17 12:48 | XMS_ITS | Clinical Summary ---
Author Organization [facility] Address [address] [place] [address] Care Team Providers Care Successfactors Consultant Name Role Phone Olman Min MD Primary Care Provider [phone] Source Comments [facility],non-owned Affiliates and Associated Physician Practices is amultiple site organization consisting of ambulatory clinics and hospital sitesin [place], [place], [place] and [place]. This disclosure is being madepursuant to the Care Everywhere program and may not contain all information available regarding this patient. Last updated 18.[facility] Allergies No known active allergies Medications * [...] Chronic 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 coma 018 Encounters Date Type Department Care Team Description 07/14/2024 Lab Requisition [facility] - DermPath Lab [address] [place] [id number] Tessie Schwab MD from Last 3 Months Social History Tobacco Use Types Packs/Day Years [...] 03/10/2018 1:27 PM CDT Plan of Treatment Health Maintenance Due Date Last Done Comments BONE DENSITY TESTING 1937 DTAP/TDAP/TD VACCINES (1 - Tdap) 1956 PNEUMOCOCCAL VACCINE 50+ (1 of 2 - PCV) 1956 ZOSTER VACCINE (1 of 2) 1987 HEPATITIS B VACCINE (1 of 3 - Risk 3-dose series) 1997 Respiratory Syncytial Virus (RSV) Vaccine Pt: or over 60 yrs (1 - 1-dose 75+ series) 2012 COVID-19 VACCINE (2023-2 5 season) 2024 INFLUENZA VACCINE (#1) 2024 DEPRESSION SCREENING 06/03/2024 MEDICARE AWV CALENDAR YEAR 2024 HIB VACCINE Aged Out No longer eligi ble based on patient's age to complete this topic HPV VACCINE Aged Out No longer eligi ble based on patient's age to complete this topic MENINGOCOCCAL (Group B) VACCINE Aged Out No longer eligible based on patient's age to complete this topic MENINGOCOCCAL VACCINE Aged Out No latisha deni eligible based on patient's age to complete this topic Goals Goal Patient Goal Type Associated Problems Recent Progress Patient-Stated? Author Medication Management General On track( 018 1:27 PM CDT) No Shey Zuleta, RN Note: Expected end date: ongoing Interventions: Take all medications as prescribed Complete Hepatitis C therapy as prescribed Let your doctor know right away about any changes in your medications Make sure to request a refill of your medication at least one week prior to your last dose Procedures Procedure Name Priority Date/Time Associated Diagnosis Comments DERMATOPATHOLOGY Routine 07/14/2024 11:0 7 AM INNER TUBE TUBER MACHINE OPERATOR from Last 3 Months Results * DERMATOPATHOLOGY (07/14/2024 11:07 AM INNER TUBE TUBER MACHINE OPERATOR) Case Report Dermatopathology Report Case: [id number] Authorizing Provider: Tessie Schwab MD Collected: 07/14/2024 11:07 AM Ordering Location: [facility] - Received: 07/15/2024 10:14 AM DermPath Lab Pathologist: Glenda Zuleta MD Specimens: A) - Skin, left hand B) - Skin, left jawline 12:17 PM INNER TUBE TUBER MACHINE OPERATOR DERMATOPATHOLOGY LABORATORY Final Diagnosis Specimen A. 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 SKIN, left jawline: EPIDERMOID CYST, SUPERFICIAL PORTIONS OF (L72.0) 12:17 PM [facility] DERMATOPATHOLOGY LABORATORY Clinical History A: R/O SCC, Non-Healing B: R/O Cyst, R/O Atypia 12:17 PM [facility] DERMATOPATHOLOGY LABORATORY Gross Description Specimen [...] measuring 6x5x1 mm. Jar 0. 12:17 PM [facility] DERMATOPATHOLOGY LABORATORY Microscopic Description Specimen [...] the infundibular portion of the hair follicle. 12:17 PM [facility] DERMATOPATHOLOGY LABORATORY Disclaimer An external and internal positive and negative controls are appropriate for the histochemical, immunohistochemical and immunofluorescence stain(s) in this case (if any), except where stated explicitly. The performance characteristics of the stain(s) cited in this report were developed and its performance characteristic determined by the Dermatopathology Laboratory at [facility], directed by Dr. Saturnino Brady. These tests need not be, and therefore are not, approved by the [place] Food and Drug Administration. The tests are used for clinical purposes. Billing Codes Specimen Charges Stain Charges 98313 89630 1 1 12:17 PM [facility] DERMATOPATHOLOGY LABORATORY Embedded Images 12:17 PM [facility] DERMATOPATHOLOGY LABORATORY Pathology/Cytology TISSUE SPECIMEN FROM SKIN / Unknown 07/14/2024 11:07 AM INNER TUBE TUBER MACHINE OPERATOR 07/15/2024 10:14 AM INNER TUBE TUBER MACHINE OPERATOR Miscellaneous samples (specimen) TISSUE SPECIMEN FROM SKIN / Unknown 07/14/2024 11:07 AM INNER TUBE TUBER MACHINE OPERATOR 07/15/2024 10:14 AM INNER TUBE TUBER MACHINE OPERATOR Tessie Schwab MD LAB - PATHOLOGY/CYTO LOGY ORDERABLES DERMATOPATHOLOGY LABORATORY [facility] - Department of Dermatology [facility] Medicine [address] [place] [address], [facility] [phone] from Last 3 Months Care Teams Successfactors Consultant Relationship Specialty Start Date End Date Olman Min MD [address] [place] [address] PCP - General 03/10/18
[2024-07-17 13:00] VITALS: PULSE 99; O2SAT 93
[2024-07-17 13:05] VITALS: PULSE 120; O2SAT 83
[2024-07-17 13:06] VITALS: PULSE 133; O2SAT 91
[2024-07-17 13:15] VITALS: PULSE 103; O2SAT 92
--- NOTE | 2024-07-17 13:27 | HOMEO2EVAL ---
Evaluation was performed at [facility] Home Oxygen Evaluation RC: Home Oxygen (O2) Evaluation Start: 07/17/24 13:23 Freq: Status: Active Protocol: RPE Activity Type Activity Date Activity User E-sign Co-sign Detail Recorded Client Recorded Date Recorded By Document 07/17/24 13:00 [email or web address] [email or web address] 07/17/24 13:26 MAKENZIE Document 07/17/24 13:05 MAKENZIE [email or web address] 07/17/24 13:26 MAKENZIE Document 07/17/24 13:06 MAKENZIE [email or web address] 07/17/24 13:26 MAKENZIE Document 07/17/24 13:15 MAKENZIE [email or web address] 07/17/24 13:26 MAKENZIE 07/17/24 07/17/24 07/17/24 13:00 13:05 13:06 Home O2 Evaluation [Oxygen] -Test Phase Resting Exercise Exercise -Oxygen Delivery Room Air Room Air Nasal Cannula -Oxygen Flow Rate (L/min) 1 [Pulse Oximetry] -Pulse Oximetry (90-100 %) 93 83 L 91 [Pulse Rate] -Pulse Rate (60-100 beats/min) 99 120 H 133 H [Evaluation] -Activity Tolerance Good [Exercise] -Ambulation Distance (feet) 500 -Ambulation Distance (meters) 152.39 [Comments] -Home Oxygen Evaluation Comments PT REQUIRES 1 LITER HOME O2 WITH ACTIVITY [Charges] -Evaluation Charges O2 Evaluation by Pulmonary 07/17/24 13:15 Home O2 Evaluation [Oxygen] -Test Phase Resting -Oxygen Delivery Room Air -Oxygen Flow Rate (L/min) [Pulse Oximetry] -Pulse Oximetry (90-100 %) 92 [Pulse Rate] -Pulse Rate (60-100 beats/min) 103 H [Evaluation] -Activity Tolerance [Exercise] -Ambulation Distance (feet) -Ambulation Distance (meters) [Comments] -Home Oxygen Evaluation Comments [Charges] -Evaluation Charges
--- NOTE | 2024-07-17 13:28 | PCRCNOTE ---
HOME O2 EVAL FAXED TO OFFICE STAFF
== END 2024-07-17 12:39 | disposition home or self-care (01) ==
PROVIDERS: Visit Provider Internal Medicine Pulmonary Disease
DX: J44.9 Chronic obstructive pulmonary disease, unspecified (principal)
CPT/HCPCS: 94618

== ENCOUNTER 2024-08-25 17:50 | Emergency (ER) | payer MEDICARE, SELFPAY ==
--- NOTE | ~2024-08-25 | CT_ITS ---
EXAMINATION: CT cervical spine wo con DATE: 08/25/2024 18:17 INDICATION: fall, head injury TECHNIQUE: Computed tomography (CT) of the cervical spine was performed without intravenous contrast. Automated exposure control and iterative reconstruction technique were employed. The dose-length pro duct was 441.05 mGy-cm. COMPARISON: None. FINDINGS: Vertebral Body Alignment: Reversed cervical lordosis. 3 mm anterolisthesis at C2-3, 2 mm retrolisthes is at C3-4, presumably on a degenerative basis. Craniocervical and atlantoaxial alignment: Moderate degenerative change with pannus. Alignment intact . Osseous structures/fracture: No evidence of a lytic or blastic process in the visualized spine. No e vidence of acute fracture. Cervical soft tissues: Multinodular thyroid with calcifications. A large lobulated mass with dense ca lcification extends from the right thyroid lobe into the superior mediastinum. Degenerative changes: Multilevel severe degenerative disc disease. Multilevel facet arthropathy, henry re on the right at C2-3. Left C4-5 facet fusion. Multilevel moderate bilateral neural foraminal narro wing and central canal stenosis secondary to degenerative changes. IMPRESSION: No acute fracture or traumatic malalignment in the cervical spine. 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 Reviewed, dictated and finalized at location K. IMPRESSION: No acute fracture or traumatic malalignment in the cervical spine. Multinodular goiter with large right thyroid lobe mass extending into the super ior mediastinum.
--- NOTE | ~2024-08-25 | CT_ITS ---
EXAMINATION: CT brain wo con DATE: 08/25/2024 18:17 INDICATION: fall, takes Eliquis . TECHNIQUE: Computed tomography (CT) of the head was performed without intravenous contrast. The mA wa s adjusted according to patient size. Iterative reconstruction technique was employed. The dose-lengt h product was 605.33 mGy-cm. COMPARISON: None. FINDINGS: No acute intracranial hemorrhage or extra-axial fluid collection. No hydrocephalus, mass, or herniation. No acute ischemic infarct. Unremarkable dural venous sinus attenuation. No acute osseous abnormality. Left frontotemporal laceration. The aerated spaces are clear. Mild atrophy and chronic white matter change. Atherosclerotic intracranial calcification. Focal old l eft thalamic lacunar infarct. IMPRESSION: No acute intracranial process. Reviewed, dictated and finalized at location K.
[2024-08-25 17:59] VITALS: BP 123/81; PULSE 91; RESP 16; TEMP 36.2; O2SAT 99
--- NOTE | 2024-08-25 18:13 | ED_ITS ---
HPI - Head Injury General Chief complaint: Head Injury Stated complaint: Head injury-tripped on step. Eyebrow laceration Time Seen by Provider: 08/25/24 18:12 Source: patient Mode of arrival: ambulatory Limitations: no limitations History of Present Illness HPI Narrative: This is a 89-year-old female who presents to the ED for chief complaint of head injury with fall today. Patient states that she was coming from the garage into the kitchen and accidentally tripped. States that she fell down and hit her left side of the head. Denies any further sites of pain or injury. Denies LOC. denies blood thinner use. States she is up-to-date on tetanus. Endorses mild bruising to the left cheek but states she is not having much pain here. Denies numbness, weakness, speech change, vision change, neck pain. Related Data Home Medications ?Medication ?Instructions ?Recorded ?Confirmed ?Last Taken ?Type furosemide 40 mg tablet 40 mg PO DAILY 01/23/23 07/27/24 Unknown History Allergies Allergy/AdvReac Type Severity Reaction Status Date / Time No Known Allergies Allergy Verified 08/25/24 18:30 Review of Systems Review of Systems: All systems as dictated in HPI [facility] Past Medical History Medical History (Updated 08/26/24 @ 00:00 by Eduardo Galan) Heart failure, diastolic, due to HTN Morbid obesity COPD (chronic obstructive pulmonary disease) Chronic diastolic CHF (congestive heart failure) Obesity Vitamin B12 deficiency MONTY (obstructive sleep apnea) Asthma Depression Hypothyroidism, unspecified IFG (impaired fasting glucose) Chronic a-fib Heart failure Essential (primary) hypertension Family History Family History (Updated 07/31/24 @ 15:19 by Moira Martinez RN) Sibling Family history of malignant neoplasm Hypertension High cholesterol Acute myocardial infarction Mother Family history of coronary artery disease Father Family history of malignant neoplasm of urinary bladder Cancer Social History Social History Smoking packs per day: 0.25 Smoking cigarettes per day: 5.0 Years smoked: 5 Smoking pack-years: 1.25 Smoking status: Former smoker Tobacco type: cigarettes Smoking end date: 06/03/1961 Alcohol intake: never Substance use: never Substance use type: does not use Living arrangements: alone Occupation/Education: retired Gender identity (if verbalized by the patient): Female Sexual Orientation (if Verbalized by the Patient): Straight or Heterosexual Spiritual care concerns: No Exam Narrative: GENERAL: Well-appearing, well-nourished, and in no acute distress. HEAD: Normocephalic, atraumatic. EYES: PERRLA and EOMI. No tenderness throughout the periorbit bilaterally. Mild bruising to the left zygomatic process. ENT: Nares clear, no rhinorrhea or epistaxis. Mucous membranes moist. Oropharynx without tonsillar hypertrophy exudate or other lesions. NECK: Supple. No adenopathy or masses. CHEST: No respiratory distress. Clear to auscultation. No wheezes rales or rhonchi HEART: Regular rate and rhythm. No murmur heard. Normal peripheral pulses. ABDOMEN: Soft, nontender, nondistended, normal active bowel sounds. MSK: Normal range of motion. No edema. SKIN: 2 cm linear laceration to the left eyebrow. Bleeding controlled on arrival. NEURO: Alert and oriented x4. No focal deficits. PSYCH: Normal mood and affect. Course Vital Signs Vital signs: Vital Signs Temperature 97.2 F L 08/25/24 17:59 Pulse Rate 91 08/25/24 17:59 Respiratory Rate 16 08/25/24 17:59 Blood Pressure 123/81 08/25/24 17:59 Pulse Oximetry 99 08/25/24 17:59 Temperature 97.2 F L 08/25/24 17:59 Pulse Rate 78 08/25/24 19:20 Respiratory Rate 14 08/25/24 19:20 Blood Pressure 128/83 08/25/24 19:20 Pulse Oximetry 95 08/25/24 19:20 Procedures Laceration Laceration 1: Date: 08/25/24 Time: 18:51 Site: face Side (If applicable): left Size (cm): 2 Description: linear Depth: simple, single layer Local Anesthetic: lidocaine 1% and with epi Amount of anesthesia used (mL): 2 Pre-repair: wound explored, irrigated extensively and deep structures intact ====== Skin Level ====== Skin layer closed with: nylon Size (cm): 5-0 Number of sutures: 4 Technique: simple, interrupted ====== Subcutaneous Layer ====== ====== Muscle Layer ====== ====== Tendon Layer ====== MDM - Head Injury MDM Narrative Medical decision making narrative: This is a 89-year-old female who presents to the ED for chief complaint of fall with head injury and left facial laceration today. Vitals are normal. Exam remarkable for the above. No neurologic deficits. Patient has no headache or spinal pain. CT imaging of the brain is negative for acute findings. Cervical spine also negative for acute traumatic findings. CT cervical spine: IMPRESSION: No acute fracture or traumatic malalignment in the cervical spine. 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 Discussed the above CT results with the patient, she is aware of these and does track them with her physicians. The wound to the left eyebrow was well cleansed and irrigated here in the ED. She is up-to-date on tetanus. The wound was closed primarily with sutures. Laceration instructions discussed Patient will be discharged in stable condition. Supportive measures discussed and return precautions given. Patient is understanding and agreeable with plan for discharge with PCP follow-up. Discharge Plan Discharge Clinical Impression: Head injury, Laceration of face Patient Disposition: Home, Self-Care Condition: Stable Instructions: Antibiotic Form, Laceration (ED) Additional Instructions: Keep wound clean and dry. Do not soak, take baths, or swim until wound is completely healed. If any signs of infection such as redness, swelling, increasing pain, drainage of purulent discharge, streaks up your extremity develop, seek medical attention immediately. Followup with your primary care provider in [7] days for suture removal. Patient Language: Yi Prescriptions: No Action furosemide 40 mg tablet 40 mg PO DAILY pjflyjcbzfw-fwwxyumkj-zjwzotfl 200-62.5-25 mcg blister with device 1 inh inhalation DAILY Qty: 60 6RF albuterol sulfate 2.5 mg /3 mL (0.083 %) solution for nebulization 2.5 mg inhalation Q4-6H PRN (Reason: shortness of breath or wheezing) Qty: 180 3RF levothyroxine 75 mcg tablet See Rx Instructions .ROUTE .COMPLEX Qty: 100 2RF Dose Instruction: TAKE 1 TABLET BY MOUTH EVERY DAY Rx Instructions: TAKE 1 TABLET BY MOUTH EVERY DAY duloxetine 60 mg capsule,delayed release(DR/EC) See Rx Instructions .ROUTE .COMPLEX Qty: 90 2RF Dose Instruction: TAKE 1 CAPSULE BY MOUTH EVERY DAY Rx Instructions: TAKE 1 CAPSULE BY MOUTH EVERY DAY pravastatin 20 mg tablet 20 mg PO DAILY Qty: 100 2RF Eliquis 5 mg tablet 5 mg PO BID Qty: 200 2RF albuterol sulfate 90 mcg/actuation HFA aerosol inhaler 2 inh inhalation Q4H PRN (Reason: shortness of breath or wheezing) Qty: 8.5 3RF metoprolol tartrate 50 mg tablet See Rx Instructions .ROUTE .COMPLEX Qty: 200 2RF Dose Instruction: TAKE 1 TABLET BY MOUTH EVERY 12 HOURS Rx Instructions: TAKE 1 TABLET BY MOUTH EVERY 12 HOURS valsartan 160 mg tablet 160 mg PO DAILY Qty: 100 2RF Follow-up/Referrals: Olman Min MD [Primary Care Provider] - Time of Disposition: 18:54
[2024-08-25 18:30] VITALS: BP 116/87; PULSE 95; RESP 15; O2SAT 96
--- OUTSIDE RECORDS SUMMARY | 2024-08-25 18:57 | XMS_ITS | Clinical Summary ---
Author Organization [facility] Address [address] [place] [address] Care Team Providers Care Agricultural Research Technologist Name Role Phone Olman Min MD Primary Care Provider [phone] [facility],non-owned Affiliates and Associated Physician Practices is amultiple site organization consisting of ambulatory clinics and hospital sitesin [place], [place], [place] and [place]. This disclosure is being madepursuant to the Care Everywhere program and may not contain all information available regarding this patient. Last updated 18.[facility] Allergies No known active allergies Medications * [...] Department Care Team Description 07/14/2024 Lab Requisition [facility] - DermPath Lab [address] [place] [phone] Tessie Schwab MD from Last 3 Months [...] Last Done Comments BONE DENSITY TESTING 1937 MEDICARE AWV 12 MONTHS 1937 DTAP/TDAP/TD VACCINES (1 - Tdap) 1956 PNEUMOCOCCAL VACCINE 50+ (1 of 2 - PCV) 1956 ZOSTER VACCINE (1 of 2) 1987 HEPATITIS B VACCINE (1 of 3 - Risk 3-dose series) 1997 Respiratory Syncytial Virus (RSV) Vaccine Pt: or over 60 yrs (1 - 1-dose 75+ series) 2012 COVID-19 VACCINE (1 - 2023-2 5 season) 2024 INFLUENZA VACCINE (#1) 2024 DEPRESSION SCREENING 06/03/2024 MEDICARE AWV CALENDAR YEAR 2024 HIB VACCINE Aged Out No longer eligi ble based on patient's age to complete this topic HPV VACCINE Aged Out No longer eligi ble based on patient's age to complete this topic MENINGOCOCCAL (Group B) VACC INE SHARED DECISION-MAKING Aged Out No longer eligibl e based on patient's age to complete this topic MENINGOCOCCAL GROUPS A/C/Y/W VACCINE Aged Out No longer eligible b ased on patient's age to complete this topic [...] Comments DERMATOPATHOLOGY Routine 07/14/2024 11:0 7 AM DIRECTOR OF PRODUCT MARKETING from Last 3 Months Results * DERMATOPATHOLOGY (07/14/2024 11:07 AM DIRECTOR OF PRODUCT MARKETING) Case Report Dermatopathology Report Case: [id number] Authorizing Provider: Tessie Schwab MD Collected: 07/14/2024 11:07 AM Ordering Location: [facility] - Received: 07/15/2024 10:14 AM DermPath Lab Pathologist: Glenda Zuleta MD Specimens: A) - Skin, left hand B) - Skin, left jawline 12:17 PM DIRECTOR OF PRODUCT MARKETING DERMATOPATHOLOGY LABORATORY Final Diagnosis Specimen A. 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 SKIN, left jawline: EPIDERMOID CYST, SUPERFICIAL PORTIONS OF (L72.0) 12:17 PM [facility] DERMATOPATHOLOGY LABORATORY Clinical History A: R/O SCC, Non-Healing B: R/O Cyst, R/O Atypia 12:17 PM [facility] DERMATOPATHOLOGY LABORATORY Gross Description Specimen A: [...] measuring 6x5x1 mm. Jar 0. 12:17 PM [facility] DERMATOPATHOLOGY LABORATORY Microscopic Description Specimen A. [...] portion of the hair follicle. 12:17 PM [facility] DERMATOPATHOLOGY LABORATORY Disclaimer An external and internal positive and negative controls are appropriate for the histochemical, immunohistochemical and immunofluorescence stain(s) in this case (if any), except where stated explicitly. The performance characteristics of the stain(s) cited in this report were developed and its performance characteristic determined by the Dermatopathology Laboratory at [facility], directed by Dr. Saturnino Brady. These tests need not be, and therefore are not, approved by the [place] Food and Drug Administration. The tests are used for clinical purposes. Billing Codes Specimen Charges Stain Charges 72382 48890 1 1 12:17 PM [facility] DERMATOPATHOLOGY LABORATORY Embedded Images 12:17 PM [facility] DERMATOPATHOLOGY LABORATORY Pathology/Cytology TISSUE SPECIMEN FROM SKIN / Unknown 07/14/2024 11:07 AM DIRECTOR OF PRODUCT MARKETING 07/15/2024 10:14 AM DIRECTOR OF PRODUCT MARKETING Miscellaneous samples (specimen) TISSUE SPECIMEN FROM SKIN / Unknown 07/14/2024 11:07 AM DIRECTOR OF PRODUCT MARKETING 07/15/2024 10:14 AM DIRECTOR OF PRODUCT MARKETING Tessie Schwab MD LAB - PATHOLOGY/CYTO LOGY ORDERABLES DERMATOPATHOLOGY LABORATORY [facility] Department of Dermatology [facility] Medicine [address] [place] [address], [address] [phone] from Last 3 Months Care Teams Agricultural Research Technologist Relationship Specialty Start Date End Date Olman Min MD [address] [place] [id number] PCP - General 03/10/18
--- OUTSIDE RECORDS SUMMARY | 2024-08-25 18:57 | XMS_ITS | Encounter Summary ---
Author Organization [facility] Address [address] [place] [address] Care Team Providers Care Graphic Designer Name Role Phone Olman Min MD Primary Care Provider [phone] Encounter Details Date Type Department Care Team (Late [facility]) Description 10/02/2023 Lab Requisition [facility] - DermPath Lab [address], [place]), [place] [phone] Tessie Schwab MD [address] [address] [place] [address] Social History Tobacco Use Types Packs/Day Years [...] AM CDT) Case Report Dermatopathology Report Case: [id number] Authorizing Provider: Tessie Schwab MD Collected: 10/02/2023 10:42 AM Ordering Location: [facility] - Received: 10/03/2023 08:57 AM [...] characteristic determined by the Dermatopathology Laboratory at [facility], directed by Dr. Saturnino Brady. These tests need not be, and therefore are not, approved by the [place] Food and Drug Administration. The tests are used for clinical purposes. Billing Codes Specimen Charges Stain Charges 32134 1 12:49 PM CDT DERMATOPATHOLOGY LABORATORY Embedded Images 12:49 PM CDT DERMATOPATHOLOGY LABORATORY Pathology/Cytolo gy TISSUE SPECIMEN FROM SKIN / Unknown 10/02/2023 10:42 AM CDT 10/03/2023 8:57 AM CDT Tessie Schwab MD LAB - PATHOLOGY/CYTO LOGY ORDERABLES DERMATOPATHOLOGY LABORATORY [facility] - Department of Dermatology [facility] Medicine [address] [place] [address], [address] [phone] documented in this encounter Visit Diagnoses Not on filedocumented in this encounter Care Teams Graphic Designer Relationship Specialty Start Date End Date Olman Min MD [address] [place] [address] PCP - General 03/10/18 documented as of this encounter
--- OUTSIDE RECORDS SUMMARY | 2024-08-25 18:57 | XMS_ITS | Referral Summary ---
Author Organization [facility] Address [address] [place] [address] Care Team Providers Care Call Box Wirer Name Role Phone Olman Min MD Primary Care Provider Encounters Date Type Department Care Team Description 08/24/2024 12:30 PM CDT Office Visit [facility] Cardiology [address] [facility] [address] [place] [phone] Franco Wayne MD Essential hypertension (Primary Dx); Chronic diastolic CHF (congestive heart failure) (HCC); Persistent atrial fibrillation (HCC); Hypercholesteremia 08/07/2024 12:03 PM DIAMOND POLISHER - 08/07/2024 11:59 PM DIAMOND POLISHER Hospital Encounter [facility] [address] [place] [address] Percy Figueroa MD Bilateral shoulder pain, unspecified chronicity (Primary Dx) Discharge Disposition: Discharge to home or self care 08/03/2024 Telephone [facility] Cardiology [address] [facility] [address] [place] [phone] Juan Boateng MD 07/30/2024 Orders Only [facility] Orthopaedic Surgery [id number] [place] [address] 2nd Floor [address] [place] [phone] Dayne Christy MD Bilateral shoulder pain, unspecified chronicity (Primary Dx) from Last 3 Months Allergies No known active allergies Medications levothyroxine (SYNTHROID) 75 mcg tablet daily. 09/27/2008 Active pravastatin (PRAVACHOL) 20 mg tablet daily. Active apixaban (ELIQUIS) 5 mg tablet 2 times daily. Active DULoxetine DR (CYMBALTA) 60 mg capsule TK 1 C PO D 3 03/05/2018 Active cholecalciferol (VITAMIN D-3) 2,000 unit capsule daily. 09/27/2008 Active acetaminophen ER (TYLENOL) 650 mg 8 hr tablet TAKE 1 TABLET 4 TIMES DAILY NEEDED. 08/05/2015 Active fluticasone-ume clidin-vilanter (TRELEGY ELLIPTA) 200-62.5-25 mcg inhaler Inhale Active metoprolol (LOPRESSOR) 25 mg tabletIndicatio ns:Chronic a-fib (HCC) Take 2 tablets (50 mg total) by mouth 2 (two) times a day 180 tablet 3 11/25/2018 Active cetirizine 10 mg capsule Take 10 mg by mouth daily Active valsartan (DIOVAN) 160 mg tablet Take 1 tablet (160 mg total) by mouth daily 10/21/2021 Active calcium citrate-vitamin D3 (CITRACAL WITH D) 315 mg-6.25 mcg (250 unit) per tablet Take 1 tablet by mouth daily Active akazyhdr-qio-jd lic acid-biotin (Hair,Skin and Nails,FA-biotin ,) 100-1,500 mcg tablet Take by mouth Active biotin-silicon wpwz-Z-akhzkymn 5,000 mcg -10 mg-50 mg tablet extended release 06/04/2023 Active furosemide (LASIX) 40 mg tablet TAKE 1 TABLET BY MOUTH EVERY DAY 90 tablet 3 03/23/2024 Active Active Problems Problem Noted Date Diagnosed Date Low blood pressure reading 12/05/2022 Precordial pain 12/12/2021 CHAN (dyspnea on exertion) 06/30/2019 Confusion 06/30/2019 Persistent atrial fibrillation 11/25/2018 Chronic anticoagulation 11/25/2018 Chronic diastolic CHF (congestive heart failure) 11/25/2018 Mixed restrictive and obstructive lung disease 0 11/25/2018 Essential hypertension 11/25/2018 Hypercholesteremia 11/25/2018 Class 3 obesity 11/25/2018 Obstructive sleep apnea johnnie debbie with continuous positive airway pressure (CPAP) 11/25/2018 Resolved Problems Problem Noted Date Diagnosed Date Resolved Date Preoperative cardiovascular examination 12/05/2022 08/24/2024 Social History Tobacco Use Types Packs/Day Years Used Date Smoking Tobacco: Former Cigarettes 0.8 5 0 06/03/1957 - 06/03/1962 Smokeless Tobacco: Never Comments:Smoked when she was in her 20's Personal Safety Answer Date Recorded Have you ever been in or are you currently in a harmful physical or emotional relationship or is someone making you feel afraid or unsafe? Denies 08/07/2024 Comments Unknown Sex and Gender Information Value Date Recorded Sex Assigned at Not on file Legal Sex Female 6:52 PM DIAMOND POLISHER Gender Identity Female 08/27/2022 9:43 AM CDT Sexual Orientation Not on file Last Filed Vital Signs Vital Sign Reading Time Taken Comments Blood Pressure 118/78 08/24/2024 12:41 PM CDT Pulse 100 08/24/2024 12:41 PM CDT Temperature - - Respiratory Rate 18 08/07/2024 1:18 PM DIAMOND POLISHER Oxygen Saturation 94% 08/24/2024 12: 41 PM CDT Inhaled Oxygen Concentration - - Weight 97.8 kg (215 lb 11.2 oz) 025 12:41 PM CDT Height 157.5 cm (5' 2 ) 08/24/2024 12:4 1 PM CDT Body Mass Index 39.45 08/24/2024 12:41 PM CDT Plan of Treatment Not on file Procedures Procedure Name Priority Date/Time Associated Diagnosis Comments FLUORO GUIDED ASPIRATION OR INJECTION LARGE JOINT BILATERAL Schedule Routine, Read Routine (OP Routine) 08/07/2024 1:16 PM DIAMOND POLISHER Bilateral shoulder pain, unspecified chronicity from Last 3 Months Results * FL Fluoro Guided Aspiration or Injection Large Joint Bilateral (SUBACROMIAL BURSA) (08/07/2024 1:16PM DIAMOND POLISHER) Narrative RAD_PACS_BJ - 08/07/2024 1:16 PM DIAMOND POLISHER The images from this study are not interpreted by Radiology. Please refer to the physician's procedure / OR operative note. us Dayne Christy MD IMG FLUOROSCOPY P ROCEDURES Final Result RAD_PACS_[facility] from Last 3 Months Insurance AETNA MEDICARE GOLD AETNA MEDICARE GOLD Member Subscriber Plan / Payer (Ef fective 2019-Present) Name:Jewels Edmondson Relation to Subscriber:Self Name:Jewels Edmondson Payer ID:[id number] (NAIC) Type:AETNA MEDICARE Address: [place] [id number] AETNA MEDICARE GOLD Care Teams Call Box Wirer Relationship Specialty Start Date End Date Olman Min MD [address] [facility] [address] [place] [address] PCP - General 01/02/17
--- OUTSIDE RECORDS SUMMARY | 2024-08-25 18:57 | XMS_ITS | Encounter Summary ---
Author Organization [facility] Address [address] [facility] [place] [address] Care Team Providers Care Box Lining Machine Operator Name Role Phone Olman Min MD Primary Care Provider [phone] Encounter Details Date Type Department Care Team (Late [facility]) Description 11/11/2023 Lab Requisition [facility] - DermPath Lab [address] [facility], [place] [phone] Tessie Schwab MD [address] [facility] 3 [place] [address] Social History Tobacco Use Types Packs/Day Years [...] PM CDT) Case Report Dermatopathology Report Case: [id number] Authorizing Provider: Tessie Schwab MD Collected: 11/11/2023 03:29 PM Ordering Location: [facility] - Received: 11/12/2023 01:09 PM [...] forearm.The specimen consists of an ellipse measuring [id number] mm and is oriented with the suture/notch [...] characteristic determined by the Dermatopathology Laboratory at [facility], directed by Dr. Saturnino Brady. These tests need not be, and therefore are not, approved by the [place] Food and Drug Administration. The tests are used for clinical purposes. Billing Codes Specimen Charges Stain Charges 39903 1 4 2:34 PM CDT DERMATOPATHOLOGY LABORATORY Embedded Images 4 2:34 PM CDT DERMATOPATHOLOGY LABORATORY Pathology/Cytolo gy TISSUE SPECIMEN FROM SKIN / Unknown 11/11/2023 3:29 PM CDT 11/12/2023 1:09 PM CDT Tessie Schwab MD LAB - PATHOLOGY/CYTO LOGY ORDERABLES Performing Organization Address City/State/[facility] Co de Phone Number DERMATOPATHOLOGY LABORATORY [facility] - Department of Dermatology [facility] Medicine [address] [place] [address], [address]rd Floor [address] [phone] documented in this encounter Visit Diagnoses Not on filedocumented in this encounter Care Teams Box Lining Machine Operator Relationship Specialty Start Date End Date Olman Min MD [address] [place] [address] PCP - General 03/10/18 documented as of this encounter
--- OUTSIDE RECORDS SUMMARY | 2024-08-25 18:57 | XMS_ITS | Clinical Summary ---
Author Organization [facility] Address [address] [place] [address] Care Team Providers Care Lifter Name Role Phone Olman Min MD Primary Care Provider Allergies No known active allergies Medications levothyroxine [...] Take 1 tablet by mouth daily Active kijrjdka-ciz-gk lic acid-biotin (Hair,Skin and Nails,FA-biotin ,) 100-1,500 mcg tablet Take by mouth Active biotin-silicon oooe-S-hxabtaio 5,000 mcg -10 mg-50 mg tablet extended [...] Resolved Date Preoperative cardiovascular examination 12/05/2022 08/24/2024 Encounters Date Type Department Care Team Description 08/24/2024 12:30 PM CDT Office Visit [facility] Cardiology [address] [place] [address] [address] [place] [phone] Franco Wayne MD Essential hypertension (Primary Dx); Chronic diastolic CHF (congestive heart failure) (HCC); Persistent atrial fibrillation (HCC); Hypercholesteremia 08/07/2024 12:03 PM VENUE COORDINATOR - 08/07/2024 11:59 PM VENUE COORDINATOR Hospital Encounter [facility] [address] [place] [address] [phone] Percy Figueroa MD Bilateral shoulder pain, unspecified chronicity (Primary Dx) Discharge Disposition: Discharge to home or self care 08/03/2024 Telephone [facility] [address] [facility] [address] [place] [phone] Juan Boateng MD 07/30/2024 Orders Only [facility] Orthopaedic Surgery [address] [place] [address] 2nd [address] [place] [phone] Dayne Christy MD Bilateral shoulder pain, unspecified chronicity (Primary Dx) from Last 3 Months Surgical History Surgery Date Site/Laterality Comments HERNIA REPAIR HYSTERECTOMY KNEE SURGERY Bilateral TONSILLECTOMY FLUORO GUIDED ASPIRATION OR INJECTION LARGE JOINT BILATERAL 09/06/2022 Bilateral FLUORO GUIDED ASPIRATION OR INJECTION LARGE JOINT BILATERAL 07/30/2023 Bilateral FLUORO GUIDED ASPIRATION OR INJECTION LARGE JOINT BILATERAL 04/03/2024 Bilateral FLUORO GUIDED ASPIRATION OR INJECTION LARGE JOINT BILATERAL 08/07/2024 Bilateral Medical History Medical History Date Comments Atrial fibrillation, persistent (HCC) 2008 COPD (chronic obstructive pulmonary disease) (HC C) Morbid obesity (HCC) MONTY on CPAP CHF (congestive heart failure) (HCC) Asthma Arthritis 1987 Chronic bronchitis (HCC) 1987 Heart disease Thyroid disease 1965 Family History Medical History Relation Name Comments Leukemia Brother Nixon Mcbride Parkinson Obesity Brother Nixon Mcbride Parkinson Cancer Father Reed Lovell Family histo ry of cancer - (Added by TW Conv) Arthritis Mother Leah Dowell Parkinson Heart failure Mother Leah Dowell Parkinson Famil y history of heart failure - (Added by TW Conv) Heart attack Sister 1 Ora Nicolasa Heart disease Sister 1 Ora Nicolasa Hyperlipidemia Sister 1 Ora Nicolasa Hypertension Sister 1 Ora Nicolasa Family histo ry of hypertension - (Added by TW Conv) Obesity Sister 1 Ora Baldwin Dementia Sister 2 Heart disease Sister 2 Obesity Sister 3 Leah Klein Relation Name Status Comments Brother Nixon Mcbride Parkinson Father Reed Parkinson (Age 63) Bladder cancer Mother Leah Dowell Parkinson (Age 94) Sister 1 Ora Baldwin Sister 2 Sister 3 Leah Klein Social History Tobacco Use Types Packs/Day Years [...] on file Legal Sex Female 6:52 PM VENUE COORDINATOR Gender Identity Female 08/27/2022 9:43 AM CDT Sexual Orientation Not on file Obstetrics History Last Filed Vital Signs Vital Sign Reading Time Taken Comments Blood Pressure 118/78 08/24/2024 12:41 PM CDT Pulse 100 08/24/2024 12:41 PM CDT Temperature - - Respiratory Rate 18 08/07/2024 1:18 PM VENUE COORDINATOR Oxygen Saturation 94% 08/24/2024 12: 41 PM CDT Inhaled Oxygen Concentration - - Weight 97.8 kg (215 lb 11.2 oz) 025 12:41 PM CDT Height 157.5 cm (5' 2 ) 08/24/2024 12:4 1 PM CDT Body Mass Index 39.45 08/24/2024 12:41 PM CDT Plan of Treatment Health Maintenance Due Date Last Done Comments Depression Screening 1937 DTaP/Tdap/Td Vaccine (1 - Tdap) 1948 Hepatitis B Screening 1955 Well Visit 65+ 2002 Influenza Vaccine (#1) 2024 9, 04/07/2018, 02/26/2017, Additional history exists Fall Risk Assessment 08/07/2025 08/07/2024 Pneumococcal vaccine 65+ Completed 04/07/2018, 03/04 Zoster Vaccine Completed 05/11/2019, 11/01, 09/21/2013 Procedures Procedure Name Priority Date/Time Associated Diagnosis Comments FLUORO GUIDED ASPIRATION OR INJECTION LARGE JOINT BILATERAL Schedule Routine, Read Routine (OP Routine) 08/07/2024 1:16 PM VENUE COORDINATOR Bilateral shoulder pain, unspecified chronicity from Last 3 Months Results * FL Fluoro Guided Aspiration or Injection Large Joint Bilateral (SUBACROMIAL BURSA) (08/07/2024 1:16PM VENUE COORDINATOR) Narrative RAD_PACS_[facility] - 08/07/2024 1:16 PM VENUE COORDINATOR The images from this study are not interpreted by Radiology. Please refer to the physician's procedure / OR operative note. us Dayne Christy MD IMG FLUOROSCOPY P ROCEDURES Final Result RAD_PACS[facility] from Last 3 Months Insurance AETNA MEDICARE GOLD T MEDICARE [place] AETNA MEDICARE GOLD Care Teams Lifter Relationship Specialty Start Date End Date Olman Min MD [address] [facility] [address] [place] [address] PCP - General 01/02/17
--- OUTSIDE RECORDS SUMMARY | 2024-08-25 18:57 | XMS_ITS | Encounter Summary ---
Author Organization [facility] Address [address] [place] [address] Care Team Providers Care Mortgage Sales Manager Name Role Phone Olman Min MD Primary Care Provider Reason for Visit * Reason Comments Follow-up Former EU pt. Transf erring from [facility] per pt request. Weight has been up and down. Water pill was increased and pt is logging wts. Currently on Furosemide 40 mg Atrial Fibrillation Congestive Heart Failure Encounter Details Date Type Department Care Team (Late st Contact Info) Description 08/24/2024 12:30 PM CDT Office Visit [facility] Cardiology [address] [place] [address] Franco Wayne MD [address] [facility] [address], [place] [address] Essential hypertension (Primary Dx); Chronic diastolic CHF (congestive heart failure) (HCC); Persistent atrial fibrillation (HCC); Hypercholesteremia Social History Tobacco Use Types Packs/Day Years [...] on file Legal Sex Female 6:52 PM 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 Gender Identity Female 08/27/2022 9:43 AM CDT Sexual Orientation Not on file documented as of this encounter Last Filed Vital Signs Vital Sign Reading Time Taken Comments Blood Pressure 118/78 08/24/2024 12:41 PM CDT Pulse 100 08/24/2024 12:41 PM CDT Temperature - - Respiratory Rate - - Oxygen Saturation 94% 08/24/2024 12: 41 PM CDT Inhaled Oxygen Concentration - - Weight 97.8 kg (215 lb 11.2 oz) 025 12:41 PM CDT Height 157.5 cm (5' 2 ) 08/24/2024 12:4 1 PM CDT Body Mass Index 39.45 08/24/2024 12:41 PM CDT documented in this encounter Plan of Treatment Not on file documented as of this encounter Visit Diagnoses Diagnosis Essential hypertension- Primary Unspecified essential hypertension Chronic diastolic CHF (congestive heart failure) (HCC) Persistent atrial fibrillation (HCC) Atrial fibrillation Hypercholesteremia Pure hypercholesterolemia documented in this encounter Care Teams Mortgage Sales Manager Relationship Specialty Start Date End Date Olman Min MD [address] [address] PCP - General 01/02/17 documented as of this encounter
--- OUTSIDE RECORDS SUMMARY | 2024-08-25 18:57 | XMS_ITS | Encounter Summary ---
Author Organization [facility] Address [address] [place] [address] Care Team Providers Care Associate Professor Of Geography Name Role Phone Olman Min MD Primary Care Provider [phone] Encounter Details Date Type Department Care Team (Late [facility]) Description 07/14/2024 Lab Requisition [facility] - DermPath Lab [address] [facility], [place] [phone] Tessie Schwab MD [address] [facility] 3 [place] [address] Social History Tobacco Use Types Packs/Day Years [...] Comments DERMATOPATHOLOGY Routine 07/14/2024 11:0 7 AM ELEVATOR REPAIRER documented in this encounter Results * DERMATOPATHOLOGY (07/14/2024 11:07 AM ELEVATOR REPAIRER) Case Report Dermatopathology Report Case: [id number] Authorizing Provider: Tessie Schwab MD Collected: 07/14/2024 11:07 AM Ordering Location: [facility] - Received: 07/15/2024 10:14 AM DermPath Lab Pathologist: Glenda Zuleta MD Specimens: A) - Skin, left hand B) - Skin, left jawline 12:17 PM [facility] DERMATOPATHOLOGY LABORATORY Final Diagnosis Specimen A. 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 SKIN, left jawline: EPIDERMOID CYST, SUPERFICIAL PORTIONS OF (L72.0) 12:17 PM [facility] DERMATOPATHOLOGY LABORATORY Clinical History A: R/O SCC, Non-Healing B: R/O Cyst, R/O Atypia 12:17 PM [facility] DERMATOPATHOLOGY LABORATORY Gross Description Specimen [...] measuring 6x5x1 mm. Jar 0. 12:17 PM [facility] DERMATOPATHOLOGY LABORATORY Microscopic Description Specimen [...] of the hair follicle. 5 12:17 PM ELEVATOR REPAIRER DERMATOPATHOLOGY LABORATORY Disclaimer An external and internal positive and negative controls are appropriate for the histochemical, immunohistochemical and immunofluorescence stain(s) in this case (if any), except where stated explicitly. The performance characteristics of the stain(s) cited in this report were developed and its performance characteristic determined by the Dermatopathology Laboratory at [facility], directed by Dr. Saturnino Brady. These tests need not be, and therefore are not, approved by the [place] Food and Drug Administration. The tests are used for clinical purposes. Billing Codes Specimen Charges Stain Charges 95306 63298 1 1 5 12:17 PM ELEVATOR REPAIRER DERMATOPATHOLOGY LABORATORY Embedded Images 12:17 PM ELEVATOR REPAIRER DERMATOPATHOLOGY LABORATORY Pathology/Cytology TISSUE SPECIMEN FROM SKIN / Unknown 07/14/2024 11:07 AM ELEVATOR REPAIRER 07/15/2024 10:14 AM ELEVATOR REPAIRER Miscellaneous samples (specimen) TISSUE SPECIMEN FROM SKIN / Unknown 07/14/2024 11:07 AM ELEVATOR REPAIRER 07/15/2024 10:14 AM ELEVATOR REPAIRER Tessie Schwab MD LAB - PATHOLOGY/CYTO LOGY ORDERABLES DERMATOPATHOLOGY LABORATORY [facility] - Department of Dermatology [address], [address] [phone] documented in this encounter Visit Diagnoses Not on filedocumented in this encounter Care Teams Associate Professor Of Geography Relationship Specialty Start Date End Date Olman Min MD [address] [place] [address] PCP - General 03/10/18 documented as of this encounter
--- OUTSIDE RECORDS SUMMARY | 2024-08-25 18:57 | XMS_ITS | Data Portability ---
Author Organization [employer], [facility] Address [address] [address] Assessment No assessment recorded. Plan of Treatment [...] more view No observ ation record ed. [email or web address] Not Available 14:34:45 03/26/2008/27/2022 XR, shoul obed, 2 or more view No observ ation record ed. [email or web address] Not Available 14:34:46 Result Notes None recorded. Procedures Surgical History Date Name Laterality Status Provider Name and Address Organization Details Recorded Time Radiographs completed Alexandre Thomas [address] [facility] [address], [place], [address], [employer] 03/30/2024 17:40:04 Imaging Results Imaging Date Name Status LastModified by Organiz ation Details LastModified Time 08/27/2022 XR, shoulder, 2 or more view completed [email or web address] Information not available 04/07/2024 14:34:45 08/27/2022 XR, shoulder, 2 or more view completed [email or web address] Information not available 04/07/2024 14:34:46 Procedure Notes [...] Updated DateTime 03/26/2024 154.94 cm 41.9 kg/m2 550373.51 g [facility] 03/26/2024 16:34:02 Social History Question Answer Notes LastModified by Organizat ion Details LastModified Time Tobacco Smoking Status Never Smoker Elba burgess, [facility] 03/26/2024 16:59:37 What Is Your Level Of Alcohol Consumption? None Information not available 03/26/2024 Are You Currently Employed? No Retired [email or web address] Information not available 03/26/2024 What Is Your Relationship Status? [email or web address] Information not available 03/26/2024 Sex: Unknown Functional Status Question Answer Note LastModified by Organization D etails LastModified Time What is your exercise level? None Information not available 03/26/2024 Mental Status None recorded. Family History Relationship Description Onset Age of this Age Resolved Age Notes LastModified by Organization Details LastModified Time Unspecified Relation Arthritis [email or web address] Not available 03/04 16:58:29 Unspecified Relation Heart disease [email or web address] Not available 03/26 16:58:40 Unspecified Relation Hypercholest erolemia [email or web address] Not available 03/26 16:58:48 Unspecified Relation Asthma [email or web address] Not available 2023 16:58:54 Unspecified Relation Hypertensive disorder [email or web address] Not available 03/26 16:59:02 Unspecified Relation Malignant neoplastic disease [email or web address] Not available 03/26 16:59:12 Notes:thyroid issue not [...] SNOMED-CT Code Diagnosis ICD10 Code Diagnosis Note [id number] Alexandre Thmoas [facility] [address] [place] [address] 03/26/2024 13:47:24 03/26/2024 15:17:56 Bilateral shoulder joint pain [id number] M25.511 M25.512 Bilateral shoulder osteoarthritis [id number] 20833 M19.011 M19.012 We had a lengthy discussion [...] ID Guarantor Name 03/26/2024 1 [employer] (O) [id number] Jewels Edmondson [id number] Jewels Edmondson Notes Date Note Type Note [...] some relief lasting almost 6 months. Alexandre hTomas [address] [place] [address], [place], [address], [facility] [employer], [facility] 03/30/2024 17:41:33 OBGyn Episode No OBEpisode recorded.
--- OUTSIDE RECORDS SUMMARY | 2024-08-25 18:57 | XMS_ITS | Continuity of Care Document ---
Author Organization [employer] [place] Address [address] [place] [phone] Phone Care Team Providers Care Senior Java Web Application Developer Name Role Phone Ricardo Eunice MOSQUEDA Unavailable Unavailable Procedures Procedure Date THERAPEUTIC EXERCISES NEUROMUSCULAR RE-ED HOT/COLD PACK THERAPEUTIC EXERCISES NEUROMUSCULAR RE-ED MANUAL THERAPY FUNC ACTIVITY HOT/COLD PACK THERAPEUTIC EXERCISES NEUROMUSCULAR RE-ED MANUAL THERAPY FUNC ACTIVITY HOT/COLD PACK THERAPEUTIC EXERCISES NEUROMUSCULAR RE-ED MANUAL THERAPY FUNC ACTIVITY HOT/COLD PACK PT RE-EVALUATION THERAPEUTIC EXERCISES NEUROMUSCULAR RE-ED MANUAL THERAPY FUNC ACTIVITY HOT/COLD PACK Carrying, Moving And Handling Objects-Cu rrent Carrying, Moving And Handling Objects-Go al Medications Name Dose Freq Route DOC Aug THERAPEUTIC EXERCISES NEUROMUSCULAR RE-ED MANUAL THERAPY HOT/COLD PACK THERAPEUTIC EXERCISES NEUROMUSCULAR RE-ED MANUAL THERAPY HOT/COLD PACK PT Evaluation Moderate Complexity THERAPEUTIC EXERCISES Carrying, Moving And Handling Objects-Cu rrent Carrying, Moving And Handling Objects-Go al Medications Name Dose Freq Route DOC Jul Pain Assess Positive -03/12 DOC 2016 BMI High F/U Plan DOC No Falls or 1 Fall w/o Injury Screened f or Fall Risk Functional Outcome Assessmen t documented, deficits identified, treatment plan es Advance Directives Directive Yes / No Effective Date File Name No Information Encounters Encounter Description Practice Location Reason(s) For Visit Diagnoses Date Provider Providers Copied on Encounter [facility] [address] [place] [address], [id number], tel:[phone] [place] No Information Apr-0 4-201 7 Ricardo Eunice. [address] [place] [address], [facility] [address], [place], [facility], . tel:[phone] [place] [address] [place] [address], [id number], tel:[phone] [place] No Information Mar-3 0-201 7 Niederbhaskarffer Corry. . [facility] [address] [place] [address], [id number], tel:[phone] [place] No Information Mar-2 1-201 7 Ricardo Eunice. [address] [place] [address], [facility] [address], [place], [facility], . tel:[phone] [place] [address] [place] [address], [id number], tel:[phone] [place] No Information Mar-1 4-201 7 Ricardo Eunice. [address] [place] [address], [address], [place], [place], [facility], . tel:[phone] [place] [address], [id number], tel:[phone] [place] No Information Mar-0 7-201 7 Ricardo Eunice. [address] [place] [address], [address], [place], [facility], . tel:[phone] [facility] [address] [place] [address], [id number], tel:[phone] [place] No Information 0 3 7 Muleonell Roma. [address] [place] [address], [facility] [address], [place], [facility], . tel:[phone] [facility] [address] [place] [address], [id number], tel:[phone] [place] No Information 7 Ricardo Eunice. [address] [place] [address], [facility] [address], [place], [facility], . tel:[phone] [facility] [address] [place] [address], [id number], tel:[phone] [place] Muscle weakness (generalized) Other specified dorsopathies, cervical regionStiffne ss of left shoulder, not elsewhere classifiedSti ffness of right shoulder, not elsewhere classifiedPos tural kyphosis, cervicothorac ic region 7 [place] Eunice. [address] [place] [address], [facility] [address], [place], [facility], . tel:[phone] Family History Family Member Type Diagnosis Age At Onset No Information Payers Payer name Insurance type Covered constitution party ID Authoriza tion(s) No Information Social History Type Description Quantity Date Captured Comments Sex Female Smoking Status No Information Chief Complaint And Reason For Visit No Information Reason For Referral Reason For Referral No Information History Of Present Illness Encounter Date Complaint History Of Prese nt Illness No Information Functional Status Date Functional Assessmen t No Information Instructions Date Instruction Additional Infor mation No Information Assessments Type Assessment Date No Information Patient Care Teams Name Effective Dates (start - stop) Status Members No Information
--- OUTSIDE RECORDS SUMMARY | 2024-08-25 19:11 | XMS_ITS | Continuity of Care Document ---
Author Organization [employer] [place] Address [address] [place] [phone] Phone Care Team Providers Care Tube Drawer Name Role Phone Ricardo Eunice MOSQUEDA Unavailable [...] Diagnoses Date Provider Providers Copied on Encounter [facility] [address] [place] [address], [id number], tel:[phone] [place] No Information Apr-0 4-201 7 Ricardo Eunice. [address] [place] [address], [facility] [address], [place], [facility], . tel:[phone] [place] [address] [place] [address], [id number], tel:[phone] [place] No Information Mar-3 0-201 7 Niederbhaskarffer Corry. . [facility] [address] [place] [address], [id number], tel:[phone] [place] No Information Mar-2 1-201 7 Ricardo Eunice. [address] [place] [address], [facility] [address], [place], [facility], . tel:[phone] [place] [address] [place] [address], [id number], tel:[phone] [place] No Information Mar-1 4-201 7 Ricardo Eunice. [address] [place] [address], [address], [place], [facility], . tel:[phone] [place] [address], [id number], tel:[phone] [place] No Information Mar-0 7-201 7 Ricardo Eunice. [address] [place] [address], [address], [place], [facility], . tel:[phone] [facility] [address] [place] [address], [id number], tel:[phone] [place] No Information 0 3 7 Muleonell Roma. [address] [place] [address], [facility] [address], [place], [facility], . tel:[phone] [facility] [address] [place] [address], [id number], tel:[phone] [place] No Information 7 Ricardo Eunice. [address] [place] [address], [facility] [address], [place], [facility], . tel:[phone] [facility] [address] [place] [address], [id number], tel:[phone] [place] Muscle weakness (generalized) Other specified dorsopathies, cervical regionStiffne ss of left shoulder, not elsewhere classifiedSti ffness of right shoulder, not elsewhere classifiedPos tural kyphosis, cervicothorac ic region 7 [place] Eunice. [address] [place] [address], [facility] [address], [place], [facility], . tel:[phone] Family History Family Member Type Diagnosis Age At Onset No Information Payers Payer name Insurance type Covered green party ID Authoriza tion(s) No Information Social [...]
[2024-08-25 19:20] VITALS: BP 128/83; PULSE 78; RESP 14; O2SAT 95
== END 2024-08-25 20:06 | disposition home or self-care (01) ==
PROVIDERS: Emergency Provider Physician Assistant; PCP Family Medicine
DX: S01.112A Laceration without foreign body of left eyelid and periocular area, initial encounter (principal); I11.0 Hypertensive heart disease with heart failure; I50.9 Heart failure, unspecified; J44.9 Chronic obstructive pulmonary disease, unspecified; F32.A Depression, unspecified; E03.9 Hypothyroidism, unspecified; I48.91 Unspecified atrial fibrillation; W01.0XXA Fall on same level from slipping, tripping and stumbling without subsequent striking against object, initial encounter
CPT/HCPCS: 12011; 70450; 72125; 99284; J2004

== ENCOUNTER 2024-09-04 12:23 | Outpatient (CLI) | payer MEDICARE, SELFPAY ==
--- NOTE | ~2024-09-04 | US_ITS ---
EXAMINATION: US thyroid DATE: 09/04/2024 12:40 INDICATION: Thyroid nodule TECHNIQUE: Multiple ultrasound images of the thyroid were obtained. COMPARISON: None. FINDINGS: The right thyroid lobe measures 1.7 x 0.7 x 0.8 cm. Visualization of the right lobe of the thyroid gland is somewhat limited secondary to poor acoustic p enetration. The left thyroid lobe measures 2.6 x 1.8 x 1.3 cm. Within the left lobe of the thyroid gland is a 12 x 12 x 10 mm nodule: Composition -solid or almost completely solid (2) Echogenicity -hyperechoic or isoechoic (1) Shape - wider than tall Margin - smooth Echogenic foci - none. = TR3; Mildly suspicious Greater than or equal to 1.5 cm: Follow-up Greater than or equal to 2.5 cm: FNA The isthmus measures 0.1cm in anterior to posterior dimension. There is otherwise normal echotexture and echogenicity throughout the remainder of the thyroid gland. No additional discrete nodules are identified. Normal vascular flow is present. IMPRESSION: Mildly suspicious TR 3 nodule within the left lobe of the thyroid gland which measures 12 mm in great est dimension. No FNA is recommended (based on size). Follow-up may be performed, but is not recommen ded. Reviewed, dictated and finalized at location A. IMPRESSION: Mildly suspicious TR 3 nodule within the left lobe of the thyroid gland which m easures 12 mm in greatest dimension. No FNA is recommended (based on size). Fol low-up may be performed, but is not recommended.
== END 2024-09-04 12:24 | disposition home or self-care (01) ==
LOC: MICIMG 12:24
PROVIDERS: PCP Family Medicine; Visit Provider Student in an Organized Health Care Education/Training Program
DX: E04.9 Nontoxic goiter, unspecified (principal)
CPT/HCPCS: 76536

== ENCOUNTER 2024-11-20 13:30 | Outpatient (RCR) | payer MEDICARE, SELFPAY ==
[2024-07-31 15:36] VITALS: PULSE 75
== END 2024-11-20 23:59 | disposition home or self-care (01) ==
LOC: ANHCPREHAB 13:30
PROVIDERS: PCP Family Medicine; Visit Provider Internal Medicine Pulmonary Disease
DX: J45.909 Unspecified asthma, uncomplicated (principal)
CPT/HCPCS: 94625; G0239

== ENCOUNTER 2024-12-19 09:49 | Emergency (ER) | payer MEDICARE, SELFPAY ==
--- OUTSIDE RECORDS SUMMARY | 2024-12-19 09:52 | XMS_ITS | Encounter Summary ---
Author Organization [facility] Address [address] [place] [address] Care Team Providers Care Manager Car Name Role Phone Olman Min MD Primary Care Provider Encounter Details Date Type Department Care Team (Late [facility]) Description 11/11/2023 Lab Requisition [facility] - DermPath Lab [address] [facility] [place] [address] Tessie Schwab MD [address] [facility] [address] [place] [address] Social History Tobacco Use Types Packs/Day Years Used Date Smoking Tobacco: Former Cigarettes 0.3 5 1 - 03/10/1964 Smokeless Tobacco: Never Alcohol Use Standard Drinks/Week Comments No 0 (1 standard drink = 0.6 oz pur e alcohol) Comments No Sex and Gender Information Value Date Recorded Sex Assigned at Not on file Legal Sex 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 SKIN, left forearm: SQUAMOUS CELL CARCINOMA, WELL DIFFERENTIATED (C44.629) NOT PRESENT AT MARGIN DERMAL SCAR (L90.5) 2:34 PM CDT DERMATOPATHOLOGY LABORATORY at 1434 CDT Clinical History SCC bx proven 2:34 PM CDT DERMATOPATHOLOGY LABORATORY Gross Description Specimen A: Received is one formalin filled container labeled with the patient's name and designated left forearm.The specimen consists of an ellipse measuring 45i50p1 mm and is oriented with the suture/notch [...] are oriented perpendicular to the skin surface. 4 2:34 PM CDT DERMATOPATHOLOGY LABORATORY Disclaimer An external and internal positive and negative controls are appropriate for the histochemical, immunohistochemical and immunofluorescence stain(s) in this case (if any), except where stated explicitly. The performance characteristics of the stain(s) cited in this report were developed and its performance characteristic determined by the Dermatopathology Laboratory at [facility], directed by Dr. Saturnino Brady. These tests need not be, and therefore are not, approved by the [place] Food and Drug Administration. The tests are used for clinical purposes. Billing Codes Specimen Charges Stain Charges 83099 1 4 2:34 PM CDT DERMATOPATHOLOGY LABORATORY Embedded Images 4 2:34 PM CDT DERMATOPATHOLOGY LABORATORY Pathology/Cytolo gy TISSUE SPECIMEN FROM SKIN / Unknown 11/11/2023 3:29 PM CDT 11/12/2023 1:09 PM CDT Tessie Schwab MD LAB - PATHOLOGY/CYTOLOGY ORD ERABLES Final Result DERMATOPATHOLOGY LABORATORY [facility] - Department of Dermatology [facility] [address] [place] [address], [address] [phone] documented in this encounter Visit Diagnoses Not on filedocumented in this encounter Care Teams Manager Car Relationship Specialty Start Date End Date Olman Mni MD [address] [place] [address] PCP - General 03/10/18 documented as of this encounter
--- OUTSIDE RECORDS SUMMARY | 2024-12-19 09:52 | XMS_ITS | Data Portability ---
Author Organization [employer], [facility] Address [address] [address] Assessment No assessment recorded. Plan of Treatment [...] Abnormal Flag Note LastModifiedBy Organization Detail LastModifiedTime 03/26/20 24 08/27/2022 XR, shoul obed, 2 or more view No observ ation record ed. [email or web address] Not Available 14:34:45 03/26/20 24 08/27/2022 XR, shoul obed, 2 or more view No observ ation record ed. [email or web address] Not Available 14:34:46 Result Notes None recorded. Procedures Surgical History Date Name Laterality Status Provider Name and Address Organization Details Recorded Time Radiographs completed Alexandre Thomas [address], [place], [address], [employer] 03/30/2024 17:40:04 Imaging Results None recorded. Procedure Notes None recorded. Medical Equipment None [...] Updated DateTime 03/26/2024 154.94 cm 41.9 kg/m2 128282.51 g Elba Gordon [facility], [facility] 03/26/2024 16:34:02 Social History Question Answer Notes LastModified by Organizat ion Details LastModified Time Tobacco Smoking Status Never Smoker Elba Evan null, [facility] 03/26/2024 16:59:37 What Is Your Relationship Status? [email or web address] Information not available 03/26/2024 Sex: Unknown Functional Status Question Answer Note LastModified by Organizat ion Details LastModified Time What is your level of alcohol consumption? None [email or web address] Information not available 03/26/2024 Are you currently employed? No retired [email or web address] Information not available 03/26/2024 What is your exercise level? None Information not available 03/26/2024 Mental Status None recorded. Family History Relationship Description Onset Age of this Age Resolved Age Notes LastModified by Organization Details LastModified Time Unspecified Relation Arthritis [email or web address] Not available 03/04 16:58:29 Unspecified Relation Heart disease [email or web address] Not available 03/26 16:58:40 Unspecified Relation Hypercholest erolemia [email or web address] Not available 03/26 16:58:48 Unspecified Relation Asthma Not available 2023 16:58:54 Unspecified Relation Hypertensive disorder [email or web address] Not available 03/26 16:59:02 Unspecified Relation Malignant neoplastic disease Not available 03/26 16:59:12 Notes:thyroid issue not note d-unspecified Medical History Condition Response Arthritis Y Tendon Tear Y High Cholesterol Y Hernia Y Skin Cancer Y Heart Disease Y Hypertension Y Asthma Y Gynecological HistoryNo gynecological history recorded. Obstetrics History GPAL:G 0 P 0 0 0 0 Past Encounters Encounter ID Performer Location Encounter Start Date Encounter Closed Date Diagnosis/Indication Diagnosis SNOMED-CT Code Diagnosis ICD10 Code Diagnosis Note [id number] Alexandre William [facility] [address] [facility] [place] [phone] 03/26/2024 13:47:24 03/26/2024 15:17:56 Bilateral shoulder joint pain [id number] M25.511 M25.512 Bilateral shoulder osteoarthritis [id number] 38951 M19.011 M19.012 We had a lengthy discussion [...] Recorded Advance Directives Directive None Recorded Payers Insurance Date Sequence Insurance Name Policy Number Policy Coleman Covered Member ID Coleman Member ID Guarantor Name 03/23/2024 1 MEDICARE [place]: [place] Jewels Edmondson [id number] Jewels Edmondson 03/23/2024 2 [employer] (MEDICARE REPLACEMENT/ ADVANTAGE - PPO) [id number] Jewels Edmondson [id number] Jewels Edmondson 03/26/2024 1 [employer]ET[employer] - PRIME (MEDICARE REPLACEMENT/ ADVANTAGE - HMO) [id number] Jewels Edmondson [id number] Jewels Edmondson 03/26/2024 1 AETNA (HMO) [id number] Jewels Edmondson [id number] Jewels Edmondson Notes Date Note Type Note Provider Name and Address Organization Details Recorded Time 03/26/2024 text/html 88-year-old femelver quarles presents today chief complaint bilateral shoulder [...] relief lasting almost 6 months. Alexandre Thomas [address], [place], [address], [facility] [employer] 03/30/2024 17:41:33 OBGyn Episode No OBEpisode recorded.
--- OUTSIDE RECORDS SUMMARY | 2024-12-19 09:52 | XMS_ITS | Encounter Summary ---
Author Organization [facility] Address [address] [facility] [place] [address] Care Team Providers Care Clinical Support Tech Name Role Phone Olman Min MD Primary Care Provider [phone] Encounter Details Date Type Department Care Team (Late [facility]) Description 07/14/2024 Lab Requisition 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 - Received: 07/15/2024 10:14 AM DermPath Lab Pathologist: Glenda Zuleta MD Specimens: A) - Skin, left hand B) - Skin, left jawline 12:17 PM EXECUTIVE TEAM LEADER DERMATOPATHOLOGY LABORATORY Final Diagnosis Specimen A. 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 SKIN, left jawline: EPIDERMOID CYST, SUPERFICIAL PORTIONS OF (L72.0) 12:17 PM [facility] DERMATOPATHOLOGY LABORATORY at 1217 EXECUTIVE TEAM LEADER Clinical History A: R/O SCC, Non-Healing B: R/O Cyst, R/O Atypia 12:17 PM [facility] DERMATOPATHOLOGY LABORATORY Gross Description Specimen A: [...] measuring 6x5x1 mm. Jar 0. 12:17 PM [facility] DERMATOPATHOLOGY LABORATORY Microscopic Description Specimen A. [...] of the hair follicle. 5 12:17 PM EXECUTIVE TEAM LEADER DERMATOPATHOLOGY LABORATORY Disclaimer An external and internal positive and negative controls are appropriate for the histochemical, immunohistochemical and immunofluorescence stain(s) in this case (if any), except where stated explicitly. The performance characteristics of the stain(s) cited in this report were developed and its performance characteristic determined by the Dermatopathology Laboratory at [facility], directed by Dr. Saturnino Brady. These tests need not be, and therefore are not, approved by the [place] Food and Drug Administration. The tests are used for clinical purposes. Billing Codes Specimen Charges Stain Charges 20983 75672 1 1 5 12:17 PM EXECUTIVE TEAM LEADER DERMATOPATHOLOGY LABORATORY Embedded Images 12:17 PM EXECUTIVE TEAM LEADER DERMATOPATHOLOGY LABORATORY Pathology/Cytology TISSUE SPECIMEN FROM SKIN / Unknown 07/14/2024 11:07 AM EXECUTIVE TEAM LEADER 07/15/2024 10:14 AM EXECUTIVE TEAM LEADER Miscellaneous samples (specimen) TISSUE SPECIMEN FROM SKIN / Unknown 07/14/2024 11:07 AM EXECUTIVE TEAM LEADER 07/15/2024 10:14 AM EXECUTIVE TEAM LEADER Tessie Schwab MD LAB - PATHOLOGY/CYTOLOGY ORD ERABLES Final Result DERMATOPATHOLOGY LABORATORY [facility] Department of Dermatology [facility] Medicine [address] [place] [address], [address] [phone] documented in this encounter Visit Diagnoses Not on filedocumented in this encounter Care Teams Clinical Support Tech Relationship Specialty Start Date End Date Olman Min MD [address] [place] [address] PCP - General 03/10/18 documented as of this encounter
--- OUTSIDE RECORDS SUMMARY | 2024-12-19 09:52 | XMS_ITS | Patient Health Record ---
Author Organization [facility] Address [address] [place], [place] [id number] Care Team Providers Care Fire Chief Name Role Phone ANDRES GRIFFITH Unavailable [phone] Olman Min Unavailable Unavailable Reason For Referral No Information Medications Medication SIG (Take, Route, Frequency, Duration) Notes Start Date End Date Status alendronic acid 10 MG Oral Tablet ORAL alendronic acid 10 MG Oral TabletOriginal Medicationalendronic acid 10 MG Oral Tablet *Reorder from [facility] for eRx and Interaction Alerts* 013 Active Pravastatin Sodium 10 MG Oral Tablet ORAL pravastatin sodium 10 MG Ora l TabletOriginal Medicationpravastatin sodium 10 MG Oral Tablet *Reorder from [facility] for eRx and Interaction Alerts* 013 Active Metoprolol Tartrate 100 MG Oral Tablet ORAL metoprolol tartrate 100 MG O ral TabletOriginal Medicationmetoprolol tartrate 100 MG Oral Tablet *Reorder from [facility] for eRx and Interaction Alerts* 013 Active hydrochlorothiazide 25 MG / losartan potassium 100 MG Oral Tablet ORAL hydrochlorothiazide 25 MG / losartan potassium 100 MG Oral TabletOriginal Medicationhydrochlorothiazide 25 MG / losartan potassium 100 MG Oral Tablet *Reorder from [facility] for eRx and Interaction Alerts* 013 Active calcium glucarate 500 MG Oral Capsule ORAL calcium glucarate 500 MG Ora l CapsuleOriginal Medicationcalcium glucarate 500 MG Oral Capsule *Reorder from [facility] for eRx and Interaction Alerts* 013 Active aspirin 81 MG Oral Tablet ORAL aspirin 81 MG Oral TabletOriginal Medicationaspirin 81 MG Oral Tablet *Reorder from [facility] for eRx and Interaction Alerts* Active apixaban 5 MG Oral Tablet [Eliquis] ORAL apixaban 5 MG Oral Tablet [Eliquis]Original Medicationapixaban 5 MG Oral Tablet [Eliquis] *Reorder from [facility] for eRx and Interaction Alerts* 013 Active levothyroxine sodium 0.05 MG Oral Tablet [Synthroid] ORAL levothyroxine sodium 0.05 MG Oral Tablet [Synthroid]Original Medicationlevothyroxine sodium 0.05 MG Oral Tablet [Synthroid] *Reorder from [facility] for eRx and Interaction Alerts* Active Plan Of Treatment No Information Insurance Providers Payer Name Payer Address Payer Phone Subscriber Number Group Number Insured Name Patient Relationship to Insured Coverage Start Date Coverage End Date [facility] [address] [place] [phone] [id number] MYKEL REAGAN Self - patient is the insured
--- OUTSIDE RECORDS SUMMARY | 2024-12-19 09:52 | XMS_ITS | Clinical Summary ---
Author Organization [facility] Address [address] [place] [address] Care Team Providers Care Android Software Engineer Name Role Phone Olman Min MD Primary [...] Take 1 tablet by mouth daily Active jdbukfrm-ehs-qx lic acid-biotin (Hair,Skin and Nails,FA-biotin ,) 100-1,500 mcg tablet Take by mouth Active biotin-silicon gqnt-T-juxcksqw 5,000 mcg -10 mg-50 mg tablet extended [...] Encounters Date Type Department Care Team Description 11/09/2024 10:03 AM CDT - 11/09/2024 11:59 PM CDT Hospital Encounter [facility] [address] [place] [address] Percy Figueroa MD Bilateral shoulder pain, unspecified chronicity (Primary Dx) Discharge Disposition: Discharge to home or self care 11/02/2024 1:50 PM CDT - 11/02/2024 11:59 PM CDT Hospital Encounter [facility] [address] [place] [address] Bilateral shoulder pain, unspecified chronicity Discharge Disposition: Discharge to home or self care 11/02/2024 1:40 PM CDT Office Visit [facility] Orthopaedic Surgery [address] [place] [address] [address] [place] [address] Dayne Christy MD Bilateral shoulder pain, unspecified [...] OR INJECTION LARGE JOINT BILATERAL 08/07/2024 Bilateral FLUORO GUIDED ASPIRATION OR INJECTION LARGE JOINT BILATERAL 11/09/2024 Bilateral Medical History Medical History Date Comments Atrial fibrillation, persistent (HCC) 2008 COPD (chronic obstructive pulmonary disease) (HC C) Morbid obesity (HCC) MONTY on CPAP CHF (congestive heart failure) (HCC) Asthma Arthritis 1987 Chronic bronchitis (HCC) 1988 Heart disease Thyroid disease 1965 Family History Medical History Relation Name Comments Leukemia Brother Nixon Mcbride Parkinson Obesity Brother Nixon Mcbride Parkinson Cancer Father Reed Parkinson Family histo ry of cancer - (Added by TW Conv) Arthritis Mother Leah Dowell Parkinson Heart failure Mother Leah Dowell Parkinson Famil y history of heart failure - (Added by TW Conv) Heart attack Sister 1 Ora Nicolasa Heart disease Sister 1 Ora Nicolasa Hyperlipidemia Sister 1 Ora Nicolasa Hypertension Sister 1 Ora Baldwin Family histo ry of hypertension - (Added by TW Conv) Obesity Sister 1 Ora Baldwin Dementia Sister 2 Heart disease Sister 2 Obesity Sister 3 Leah Klein Relation Name Status Comments Brother Nixon Mcbride Parkinson Father Reed Parkinson (Age 63) Bladder cancer Mother Leah Dowell Parkinson (Age 94) Sister 1 Ora Ulloaon Sister 2 Sister 3 Leah Klein Social [...] making you feel afraid or unsafe? 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 Gender Identity Female 08/27/2022 9:43 AM CDT Sexual Orientation Not on file Obstetrics History Last Filed Vital Signs Vital Sign Reading Time Taken Comments Blood Pressure 137/94 11/09/2024 10:18 AM CDT Pulse 88 11/09/2024 10:18 AM CDT Temperature - - Respiratory Rate 20 11/09/2024 10:1 8 AM CDT Oxygen Saturation 92% 11/09/2024 10: 18 AM CDT Inhaled Oxygen Concentration - - Weight 97.8 kg (215 lb 11.2 oz) 025 12:41 PM CDT Height 157.5 cm (5' 2) 08/24/2024 12:4 1 PM CDT Body Mass Index 39.45 08/24/2024 12:41 PM CDT Plan of Treatment Health Maintenance Due Date Last Done Comments Depression Screening 1935 Osteoporosis Screening-Bone Density Scan 1935 DTaP/Tdap/Td Vaccine (1 - Tdap) 1948 Hepatitis B Screening 1955 Well Visit 65+ 2002 Influenza Vaccine (Season Ended) 2025 02/18/2019, 04/07/2018, 02/26/2017, Additional history exists Fall Risk Assessment 11/09/2025 11/09/2024 Pneumococcal vaccine 65+ Completed 04/07/2018, 03/04 Zoster Vaccine Completed 05/11/2019, 11/01, 09/21/2013 Procedures Procedure Name Priority Date/Time Associated Diagnosis Comments FLUORO GUIDED ASPIRATION OR INJECTION LARGE JOINT BILATERAL Schedule Routine, Read Routine (OP Routine) 11/09/2024 10:40 AM CDT Bilateral shoulder pain, unspecified chronicity XR SHOULDER BILATERAL 2+ VIEWS Schedule Routine, Read Routine (OP Routine) 11/02/2024 2:05 PM CDT Bilateral shoulder pain, unspecified chronicity from Last 3 Months Results * FL Fluoro Guided Aspiration or Injection Large Joint Bilateral (GLENOHUMERAL JOINT) (11/09/2024 10:40 AM CDT) Narrative RAD[facility]PACS[facility] - 11/09/2024 10:40 AM CDT The images from this study are not interpreted by Radiology. Please refer to the physician's procedure / OR operative note. us Dayne Christy MD IMG FLUOROSCOPY P ROCEDURES Final Result RAD_PACS_[facility] * XR Shoulder Bilateral 2 or More Views (11/02/2024 2:05 PM CDT) Anatomical Region Laterality Modality Upper Extremities, Shoulder Comp uted Radiography 11/02/2024 2:55 PM CDT Impressions 11/02/2024 4:36 PM CDT 1. Progressive, severe bilateral rotator cuff tear arthropathy. Dictated by: Huan Slaughter M.D. The radiology attending physician has personally reviewed this study, and had reviewed and/or edited this written report and agrees with it. Electronically signed by: Jerry Quevedo M.D. Narrative 11/02/2024 4:36 PM CDT EXAMINATION: XR SHOULDER BILATERAL 2+ VIEWS HISTORY: Chronic bilateral shoulder pain. FINDINGS: Right shoulder: 4 radiographs of the right shoulder. Comparison is made to radiograph dated 02/25/2023. There are severe osteoarthritis of the right glenohumeral and acromioclavicular joints. There is superior subluxation of the right humeral head in relation to the glenoid with decreased acromiohumeral interval and acetabularization of the acromion. No acute fracture or dislocation. Calcified granulomas within the right lung and hilum. Left shoulder: 4 radiographic of the left shoulder. Comparison is made to radiograph dated 02/25/2023. There is severe glenohumeral and acromioclavicular joint osteoarthritis. Superior subluxation of the left humeral head in relation to the glenoid with decreased acromiohumeral interval and acetabularization of the acromion. No acute fracture or dislocation. Calcified granulomas within the left lung and hilum. Procedure Note Jerry Quevedo MD - 11/02/2024 EXAMINATION: XR SHOULDER BILATERAL 2+ VIEWS HISTORY: Chronic bilateral shoulder pain. FINDINGS: Right shoulder: 4 radiographs of the right shoulder. Comparison is made to radiograph dated 02/25/2023. There are severe osteoarthritis of the right glenohumeral and acromioclavicular joints. There is superior subluxation of the right humeral head in relation to the glenoid with decreased acromiohumeral interval and acetabularization of the acromion. No acute fracture or dislocation. Calcified granulomas within the right lung and hilum. Left shoulder: 4 radiographic of the left shoulder. Comparison is made to radiograph dated 02/25/2023. There is severe glenohumeral and acromioclavicular joint osteoarthritis. Superior subluxation of the left humeral head in relation to the glenoid with decreased acromiohumeral interval and acetabularization of the acromion. No acute fracture or dislocation. Calcified granulomas within the left lung and hilum. IMPRESSION: 1. Progressive, severe bilateral rotator cuff tear arthropathy. Dictated by: Huan Slaughter M.D. The radiology attending physician has personally reviewed this study, and had reviewed and/or edited this written report and agrees with it. Electronically signed by: Jerry Quevedo M.D. Dayne Christy MD IMG XR PROCEDURES Final Result from Last 3 Months Insurance [facility] MEDICARE GOLD [facility] MEDICARE GOLD AET MEDICARE GOLD Care Teams Android Software Engineer Relationship Specialty Start Date End Date Olman Min MD [address] [place] [address] PCP - General 01/02/17
--- OUTSIDE RECORDS SUMMARY | 2024-12-19 09:52 | XMS_ITS | Continuity of Care Document ---
Author Organization [facility] Address [address] [place] [phone] Phone Care Team Providers Care Concrete Products Machine Operator Name Role Phone [place] Eunice MOSQUEDA Unavailable Unavailable Procedures Procedure Date [...] Diagnoses Date Provider Providers Copied on Encounter [facility] [address] [place] [address], [id number], tel:[phone] [place] No Information Apr-0 4-201 7 Ricardo Eunice. [address] [place] [address], [facility] [address], [place], Formerly [facility], . tel:[phone] [place] [address] [place] [address], [id number], tel:[phone] [place] No Information Mar-3 0-201 7 Niederbhaskarffer Corry. . [facility] [address] [place] [address], [id number], tel:[phone] [place] No Information Mar-2 1-201 7 [place] Eunice. [address] [place] [address], [facility] [address], [place], Formerly named [facility], . tel:[phone] [place] [address] [place] [address], [id number], tel:[phone] [place] No Information Mar-1 4-201 7 [place] Eunice. [address] [place] [address], [address], [place], [place], Formerly named [facility], . tel:[phone] [place] [address], [id number], tel:[phone] [place] No Information Mar-0 7-201 7 [place] Eunice. [address] [place] [address], [address], [place], [facility], . tel:[phone] [facility] [address] [place] [address], [id number], tel:[phone] [place] No Information 0 3 7 Muleonell Roma. [address] [place] [address], [facility] [address], [place], Former[facility] named [facility], . tel:[phone] [facility] [address] [place] [address], [id number], tel:[phone] [place] No Information 7 [place] Eunice. [address] [place] [address], [facility] [address], [place], Former[facility], . tel:[phone] [facility] [address] [place] [address], [id number], tel:[phone] [place] Muscle weakness (generalized) Other specified dorsopathies, cervical regionStiffne ss of left shoulder, not elsewhere classifiedSti ffness of right shoulder, not elsewhere classifiedPos tural kyphosis, cervicothorac ic region 7 Riacrdo Eunice. [address] [place] [address], [facility] [address], [place], Formerly named [facility], . tel:[phone] Family History Family Member Type Diagnosis Age [...]
--- OUTSIDE RECORDS SUMMARY | 2024-12-19 09:52 | XMS_ITS | Encounter Summary ---
Author Organization [facility] Address [address] [place] [address] Care Team Providers Care Certified Orthoptist Name Role Phone Olman Min MD Primary Care Provider [phone] Encounter Details Date Type Department [facility] Team [facility] Description 10/02/2023 Lab Requisition [facility] - DermPath Lab [address] 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 Saturnino Brady. These tests need not be, and therefore are not, approved by the [place] Food and Drug Administration. The tests are used for clinical purposes. Billing Codes Specimen Charges Stain Charges 62133 1 4 12:49 PM CDT DERMATOPATHOLOGY LABORATORY Embedded Images 4 12:49 PM CDT DERMATOPATHOLOGY LABORATORY Pathology/Cytolo gy TISSUE SPECIMEN FROM SKIN / Unknown 10/02/2023 10:42 AM CDT 10/03/2023 8:57 AM CDT us Tessie Schwab MD LAB - PATHOLOGY/CYTOLOGY ORD ERABLES Final Result DERMATOPATHOLOGY LABORATORY [facility] - Department of Dermatology [facility] Medicine [address] [place] [address], [address] [phone] documented in this encounter Visit Diagnoses Not on filedocumented in this encounter Care Teams Certified Orthoptist Relationship Specialty Start Date End Date Olman Min MD [address] [place] [address] PCP - General 03/10/18 documented as of this encounter
--- OUTSIDE RECORDS SUMMARY | 2024-12-19 09:52 | XMS_ITS | Clinical Summary ---
Author Organization [facility] Address [address] [place] [address] Care Team Providers Care Dental Tech Name Role Phone Olman Min MD Primary Care Provider [phone] Source Comments [facility],non-owned Affiliates and Associated Physician Practices is amultiple site organization consisting of ambulatory clinics and hospital sitesin [place], [place], [place] and [place]. This disclosure is being madepursuant to the Care Everywhere program and may not contain all information available regarding this patient. Last updated 18.[facility] Allergies No known active allergies Medications * Be aware that medications may not be up to date on this document. Alwaysverify current medications with the patient. 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
--- OUTSIDE RECORDS SUMMARY | 2024-12-19 09:52 | XMS_ITS | Referral Summary ---
Author Organization [facility] Address [address] [place] [address] Care Team Providers Care Development Writer Name Role Phone Olman Min MD Primary Care Provider Encounters Date Type Department Care Team Description 11/09/2024 10:03 AM CDT - 11/09/2024 11:59 PM CDT Hospital Encounter [facility] [address] [place] [address] Percy Figueroa MD Bilateral shoulder pain, unspecified chronicity (Primary Dx) Discharge Disposition: Discharge to home or self care 11/02/2024 1:50 PM CDT - 11/02/2024 11:59 PM CDT Hospital Encounter [facility] [address] [place] [address] Bilateral shoulder pain, unspecified chronicity Discharge Disposition: Discharge to home or self care 11/02/2024 1:40 PM CDT Office Visit [facility] Orthopaedic Surgery [address] [place] [address] 2nd [address] [place] [address] Dayne Christy MD Bilateral shoulder pain, unspecified [...] Take 1 tablet by mouth daily Active nrjvlehn-zts-dn lic acid-biotin (Hair,Skin and Nails,FA-biotin ,) 100-1,500 mcg tablet Take by mouth Active biotin-silicon bhpo-Y-xojdozph 5,000 mcg -10 mg-50 mg tablet extended [...] on file 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
[2024-12-19 09:55] VITALS: BP 139/71; PULSE 54; RESP 20; O2SAT 95
--- NOTE | 2024-12-19 10:27 | ED_ITS ---
HPI - General Adult General Chief complaint: Extremity Injury, Upper Stated complaint: right arm pain today Time Seen by Provider: 12/19/24 09:59 History of Present Illness HPI narrative: 89-year-old female present to the emergency department for evaluation for a skin tear to her right arm. Patient was having a dream and fell out of bed this morning. Patient is adamant that she did not strike her head. Patient has no signs of injury. Patient does have ecchymosis along the right upper extremity. Patient has no concerns of fractures or dislocations. Patient does have a skin tear to her right hand and wrist. Related Data Home Medications ?Medication ?Instructions ?Recorded ?Confirmed ?Last Taken ?Type furosemide 40 mg tablet 40 mg PO DAILY 01/23/23 09/02/24 Unknown History calcium 600 mg (as carbonate)-vit tablet PO 11/27/24 Unknown History D3 10 mcg (400 unit) chewable tablet (Calcium 600 with Vitamin D3) cetirizine 10 mg tablet 10 mg PO DAILY PRN 11/27/24 Unknown History cholecalciferol (vitamin D3) 25 25 mcg PO DAILY 11/27/24 Unknown History mcg (1,000 unit) capsule cyanocobalamin (vitamin B-12) 1,000 mcg PO DAILY 11/27/24 Unknown History 1,000 mcg capsule omeprazole 20 mg capsule,delayed 20 mg PO DAILY 11/27/24 Unknown History release Allergies Allergy/AdvReac Type Severity Reaction Status Date / Time No Known Allergies Allergy Verified 11/27/24 10:59 Review of Systems Review of Systems: All systems reviewed & are unremarkable except as noted in HPI and below PMFSH Past Medical History Medical History Left thyroid nodule Heart failure, diastolic, due to HTN Morbid obesity COPD (chronic obstructive pulmonary disease) Chronic diastolic CHF (congestive heart failure) Obesity Vitamin B12 deficiency MONTY (obstructive sleep apnea) Asthma Depression Hypothyroidism, unspecified IFG (impaired fasting glucose) Chronic a-fib Heart failure Essential (primary) hypertension Family History Family History Sibling Family history of malignant neoplasm Hypertension High cholesterol Acute myocardial infarction Mother Family history of coronary artery disease Father Family history of malignant neoplasm of urinary bladder Cancer Social History Social History Smoking packs per day: 0.25 Smoking cigarettes per day: 5.0 Years smoked: 5 Smoking pack-years: 1.25 Smoking status: Former smoker Tobacco type: cigarettes Smoking end date: 06/03/1961 Alcohol intake: never Substance use: never Substance use type: does not use Living arrangements: alone Occupation/Education: retired Gender identity (if verbalized by the patient): Female Sexual Orientation (if Verbalized by the Patient): Straight or Heterosexual Spiritual care concerns: No Exam Narrative: APPEARANCE: Well appearing, no pain, no distress, well-nourished. HEAD: normocephalic, atraumatic. EYES: PERRLA/EOMI, conjunctivae clear. NOSE: Normal no drainage EARS:TMS clear with good light reflex. THROAT: Pharynx clear, no exudate. NECK: Supple. No adenopathy, no masses. RESPIRATORY: Airway patent, respirations nonlabored. Clear to auscultation bilaterally, no rales, rhonchi, wheezing. CARDIOVASCULAR: Regular rate and rhythm without murmurs rubs or gallops. ABDOMINAL: Soft, nontender, nondistended, normal bowel sounds MUSCULOSKELETAL: Moves all extremities. Strength/ROM intact, No edema, No calf tenderness. NEURO: Alert. Cranial nerves II through XII intact. Good gait. Good coordination SKIN: Skin tear to right hand and wrist Course Vital Signs Vital signs: Vital Signs Pulse Rate 54 L 12/19/24 09:55 Respiratory Rate 20 12/19/24 09:55 Blood Pressure 139/71 12/19/24 09:55 Pulse Oximetry 95 12/19/24 09:55 Oxygen Delivery Room Air 12/19/24 09:55 Pulse Rate 64 12/19/24 10:56 Respiratory Rate 18 12/19/24 10:56 Blood Pressure 111/76 12/19/24 10:56 Pulse Oximetry 95 12/19/24 10:56 Oxygen Delivery Room Air 12/19/24 09:55 Medical Decision Making [facility] Narrative Medical decision making narrative: 89-year-old female presenting to the emergency department for evaluation for skin tear to right extremity this skin tear was repaired by nursing staff. Patient has no other pain or injury. Differential Diagnosis Differential Diagnosis: Have a fracture, elbow contusion, wrist fracture wrist contusion, skin tear Vital Signs Vital Signs: Vital Signs Pulse Rate 54 L 12/19/24 09:55 Respiratory Rate 20 12/19/24 09:55 Blood Pressure 139/71 12/19/24 09:55 Pulse Oximetry 95 12/19/24 09:55 Oxygen Delivery Room Air 12/19/24 09:55 Pulse Rate 64 12/19/24 10:56 Respiratory Rate 18 12/19/24 10:56 Blood Pressure 111/76 12/19/24 10:56 Pulse Oximetry 95 12/19/24 10:56 Oxygen Delivery Room Air 12/19/24 09:55 Discharge Plan Discharge Clinical Impression: Skin tear Patient Disposition: Home Condition: Stable Instructions: Antibiotic Form, Skin Tear (ED) Additional Instructions: Wound care as directed. Have close follow-up with your primary care physician. Patient Language: Hungarian Prescriptions: No Action furosemide 40 mg tablet 40 mg PO DAILY xqeyibpabpa-gbsixchhj-dklqdobs 200-62.5-25 mcg blister with device 1 inh inhalation DAILY Qty: 60 6RF Calcium 600 with Vitamin D3 600 mg-10 mcg (400 unit) tablet,chewable PO cholecalciferol (vitamin D3) 25 mcg (1,000 unit) capsule 25 mcg PO DAILY cyanocobalamin (vitamin B-12) 1,000 mcg capsule 1,000 mcg PO DAILY omeprazole 20 mg capsule,delayed release(DR/EC) 20 mg PO DAILY cetirizine 10 mg tablet 10 mg PO DAILY PRN albuterol sulfate 2.5 mg /3 mL (0.083 %) solution for nebulization 2.5 mg inhalation Q4-6H PRN (Reason: shortness of breath or wheezing) Qty: 180 3RF pravastatin 20 mg tablet 20 mg PO DAILY Qty: 100 2RF Eliquis 5 mg tablet 5 mg PO BID Qty: 200 2RF albuterol sulfate 90 mcg/actuation HFA aerosol inhaler 2 inh inhalation Q4H PRN (Reason: shortness of breath or wheezing) Qty: 8.5 3RF metoprolol tartrate 50 mg tablet See Rx Instructions .ROUTE .COMPLEX Qty: 200 2RF Dose Instruction: TAKE 1 TABLET BY MOUTH EVERY 12 HOURS Rx Instructions: TAKE 1 TABLET BY MOUTH EVERY 12 HOURS valsartan 160 mg tablet 160 mg PO DAILY Qty: 100 2RF duloxetine 60 mg capsule,delayed release(DR/EC) See Rx Instructions .ROUTE .COMPLEX Qty: 90 2RF Dose Instruction: TAKE 1 CAPSULE BY MOUTH EVERY DAY Rx Instructions: TAKE 1 CAPSULE BY MOUTH EVERY DAY levothyroxine 75 mcg tablet See Rx Instructions .ROUTE .COMPLEX Qty: 90 0RF Dose Instruction: TAKE 1 TABLET BY MOUTH EVERY DAY Rx Instructions: TAKE 1 TABLET BY MOUTH EVERY DAY Follow-up/Referrals: Olman Min MD [Primary Care Provider] -
--- OUTSIDE RECORDS SUMMARY | 2024-12-19 10:38 | XMS_ITS | Encounter Summary ---
Author Organization [facility] Address [address] [place] [address] Care Team Providers Care Hand Welt Butter Name Role Phone Olman Min MD Primary Care Provider [phone] Encounter Details Date Type Department Care Team (Late [facility]) Description 07/14/2024 Lab Requisition [facility] - DermPath Lab [address], [place] [phone] Tessie Schwab MD [address] [place] [address] Social History Tobacco Use Types Packs/Day Years Used Date Smoking Tobacco: Former Cigarettes 0.3 5 1 - 03/10/1964 Smokeless Tobacco: Never Alcohol Use Standard Drinks/Week Comments No 0 (1 standard drink = 0.6 oz pur e alcohol) Comments No Sex and Gender Information Value Date Recorded Sex Assigned at Not on file Legal Sex Female 1:37 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 Gender Identity Not on file Sexual Orientation [...] Comments DERMATOPATHOLOGY Routine 07/14/2024 11:0 7 AM FINANCIAL REPRESENTATIVE documented in this encounter Results * DERMATOPATHOLOGY (07/14/2024 11:07 AM FINANCIAL REPRESENTATIVE) Case Report Dermatopathology Report Case: [id number] Authorizing Provider: Tessie Schwab MD Collected: 07/14/2024 11:07 AM Ordering Location: [facility] - Received: 07/15/2024 10:14 AM DermPath Lab Pathologist: Glenda Zuleta MD Specimens: A) - Skin, left hand B) - Skin, left jawline 12:17 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 DERMATOPATHOLOGY LABORATORY Final Diagnosis Specimen A. 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 SKIN, left jawline: EPIDERMOID CYST, SUPERFICIAL PORTIONS OF (L72.0) 12:17 PM [facility] DERMATOPATHOLOGY LABORATORY at [address] FINANCIAL REPRESENTATIVE Clinical History A: R/O SCC, Non-Healing B: R/O Cyst, R/O Atypia 12:17 PM [facility] DERMATOPATHOLOGY LABORATORY Gross Description Specimen A: [...] measuring 6x5x1 mm. Jar 0. 12:17 PM [facility] DERMATOPATHOLOGY LABORATORY Microscopic Description Specimen A. [...] of the hair follicle. 5 12:17 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 DERMATOPATHOLOGY LABORATORY Disclaimer An external and internal positive and negative controls are appropriate for the histochemical, immunohistochemical and immunofluorescence stain(s) in this case (if any), except where stated explicitly. The performance characteristics of the stain(s) cited in this report were developed and its performance characteristic determined by the Dermatopathology Laboratory at [facility], directed by Dr. Saturnino Brady. These tests need not be, and therefore are not, approved by the [place] Food and Drug Administration. The tests are used for clinical purposes. Billing Codes Specimen Charges Stain Charges 04088 01003 1 1 5 12:17 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 DERMATOPATHOLOGY LABORATORY Embedded Images 12:17 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 DERMATOPATHOLOGY LABORATORY Pathology/Cytology TISSUE SPECIMEN FROM SKIN / Unknown 07/14/2024 11:07 AM FINANCIAL REPRESENTATIVE 07/15/2024 10:14 AM FINANCIAL REPRESENTATIVE Miscellaneous samples (specimen) TISSUE SPECIMEN FROM SKIN / Unknown 07/14/2024 11:07 AM FINANCIAL REPRESENTATIVE 07/15/2024 10:14 AM FINANCIAL REPRESENTATIVE Tessie Schwab MD LAB - PATHOLOGY/CYTOLOGY ORD ERABLES Final Result DERMATOPATHOLOGY LABORATORY [facility] Department of Dermatology [facility] Medicine [address] [place] [address], [address] [phone] documented in this encounter Visit Diagnoses Not on filedocumented in this encounter Care Teams Hand Welt Butter Relationship Specialty Start Date End Date Olman Min MD [address] [place] [address] PCP - General 03/10/18 documented as of this encounter
--- OUTSIDE RECORDS SUMMARY | 2024-12-19 10:38 | XMS_ITS | Encounter Summary ---
Author Organization [facility] Address [address] [facility] [address] Care Team Providers Care Fur Matcher Name Role Phone Olman Min MD Primary Care Provider Encounter Details Date Type Department Care Team (Late [facility]) Description 11/11/2023 Lab Requisition [facility] - DermPath Lab [address] [facility], [place] [phone] Tessie Schwab MD [address] [facility] [address] [place] [address] Social History Tobacco Use Types Packs/Day Years Used Date Smoking Tobacco: Former Cigarettes 0.3 5 1 - 03/10/1964 Smokeless Tobacco: Never Alcohol Use Standard Drinks/Week Comments No 0 (1 standard drink = 0.6 oz pur e alcohol) Comments No Sex and Gender Information Value Date Recorded Sex Assigned at Not on file 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 Saturnino Brady. These tests need not be, and therefore are not, approved by the [place] Food and Drug Administration. The tests are used for clinical purposes. Billing Codes Specimen Charges Stain Charges 50293 1 4 2:34 PM CDT DERMATOPATHOLOGY LABORATORY Embedded Images 4 2:34 PM CDT DERMATOPATHOLOGY LABORATORY Pathology/Cytolo gy TISSUE SPECIMEN FROM SKIN / Unknown 11/11/2023 3:29 PM CDT 11/12/2023 1:09 PM CDT Tessie Schwab MD LAB - PATHOLOGY/CYTOLOGY ORD ERABLES Final Result DERMATOPATHOLOGY LABORATORY [facility] - Department of Dermatology [facility] Medicine [address] [place] [address], [address] [phone] documented in this encounter Visit Diagnoses Not on filedocumented in this encounter Care Teams Fur Matcher Relationship Specialty Start Date End Date Olman Min MD [address] [place] [address] PCP - General 03/10/18 documented as of this encounter
--- OUTSIDE RECORDS SUMMARY | 2024-12-19 10:38 | XMS_ITS | Continuity of Care Document ---
Author Organization [facility] Address [address] [place] [address] Phone Care Team Providers Care Retirement Actuary Name Role Phone [place] Eunice MOSQUEDA Unavailable Unavailable Procedures Procedure Date [...] Diagnoses Date Provider Providers Copied on Encounter [facility] [address] [place] [address], [id number], tel:[phone] Jeffrey No Information Apr-0 4-201 7 Ricardo Eunice. [address] [place] [address], [facility] [address], [place], [facility], . tel:[phone] [place] [address] [place] [address], [id number], tel:[phone] Jeffrey No Information Mar-3 0-201 7 Niederbhaskarffer Corry. . [facility] [address] [place] [address], [id number], tel:[phone] Jeffrey No Information Mar-2 1-201 7 [place] Eunice. [address] [place] [address], [facility] [address], [place], [facility], . tel:[phone] [place] [address] [place] [address], [id number], tel:[phone] Jeffrey No Information Mar-1 4-201 7 [place] Eunice. [address] [place] [address], [address], [place], [place], [facility], . tel:[phone] [place] [address], [id number], tel:[phone] Jeffrey No Information Mar-0 7-201 7 [place] Eunice. [address] [place] [address], [address], [place], [facility], . tel:[phone] [facility] [address] [place] [address], [id number], tel:[phone] Jeffrey No Information 0 3 7 Muleonell Roma. [address] [place] [address], [facility] [address], [place], [facility], . tel:[phone] [facility] [address] [place] [address], [id number], tel:[phone] Jeffrey No Information 7 [place] Eunice. [address] [place] [address], [facility] [address], [place], [facility], . tel:[phone] [facility] [address] [place] [address], [id number], tel:[phone] Jeffrey Muscle weakness (generalized) Other specified dorsopathies, cervical regionStiffne ss of left shoulder, not elsewhere classifiedSti ffness of right shoulder, not elsewhere classifiedPos tural kyphosis, cervicothorac ic region 7 Ricardo Eunice. [address] [place] [address], [facility] [address], [place], [facility], . tel:[phone] Family History Family Member Type Diagnosis Age [...]
--- OUTSIDE RECORDS SUMMARY | 2024-12-19 10:38 | XMS_ITS | Referral Summary ---
Author Organization [facility] Address [address] [place] [address] Care Team Providers Care Pilot Supervisor Name Role Phone Olman Min MD Primary Care Provider Encounters Date Type Department Care Team Description 11/09/2024 10:03 AM CDT - 11/09/2024 11:59 PM CDT Hospital Encounter [facility] [address] [place] [address] Percy Figueroa MD Bilateral shoulder pain, unspecified chronicity (Primary Dx) Discharge Disposition: Discharge to home or self care 11/02/2024 1:50 PM CDT - 11/02/2024 11:59 PM CDT Hospital Encounter [facility] [address] [place] [address] Bilateral shoulder pain, unspecified chronicity Discharge Disposition: Discharge to home or self care 11/02/2024 1:40 PM CDT Office Visit [facility] Orthopaedic Surgery [address] [place] [address] 2nd Floor [address] [place] [address] Dayne Christy MD Bilateral shoulder pain, unspecified [...] Take 1 tablet by mouth daily Active vutevniy-qzf-jk lic acid-biotin (Hair,Skin and Nails,FA-biotin ,) 100-1,500 mcg tablet Take by mouth Active biotin-silicon ygih-T-ccgrpyfu 5,000 mcg -10 mg-50 mg tablet extended [...] on file 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
--- OUTSIDE RECORDS SUMMARY | 2024-12-19 10:38 | XMS_ITS | Clinical Summary ---
Author Organization [facility] Address [address] [place] [address] Care Team Providers Care Customer Experience Strategist Name Role Phone Olman Min MD Primary [...] Take 1 tablet by mouth daily Active pqjzbfwy-chh-jd lic acid-biotin (Hair,Skin and Nails,FA-biotin ,) 100-1,500 mcg tablet Take by mouth Active biotin-silicon camk-B-dqiydwaf 5,000 mcg -10 mg-50 mg tablet extended [...] - 11/09/2024 11:59 PM CDT Hospital Encounter [facility] [address] [place] [address] Percy Figueroa MD Bilateral shoulder pain, unspecified chronicity (Primary Dx) Discharge Disposition: Discharge to home or self care 11/02/2024 1:50 PM CDT - 11/02/2024 11:59 PM CDT Hospital Encounter [facility] [address] [place] [address] Bilateral shoulder pain, unspecified chronicity Discharge Disposition: Discharge to home or self care 11/02/2024 1:40 PM CDT Office Visit [facility] Orthopaedic Surgery [address] [place] [address] 2nd [address] [place] [address] Dayne Christy MD Bilateral shoulder pain, unspecified [...] 1 Ora Nicolasa Hyperlipidemia Sister 1 Ora Nicoalsa Hypertension Sister 1 Ora Baldwin Family histo [...] on file 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
--- OUTSIDE RECORDS SUMMARY | 2024-12-19 10:38 | XMS_ITS | Clinical Summary ---
Author Organization [facility] Address [address] [place] [address] Care Team Providers Care Forensic Manager Name Role Phone Olman Min MD Primary Care Provider [phone] Source Comments [facility],non-owned Affiliates and Associated Physician Practices is amultiple site organization consisting of ambulatory clinics and hospital sitesin [place], [place], [place] and [place]. This disclosure is being madepursuant to the Care Everywhere program and may not contain all information available regarding this patient. 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
--- OUTSIDE RECORDS SUMMARY | 2024-12-19 10:38 | XMS_ITS | Encounter Summary ---
Author Organization [facility] Address [address] [facility] [place] [address] Care Team Providers Care Supervisor Pit And Auxiliaries Name Role Phone Olman Min MD Primary Care Provider [phone] Encounter Details Date Type Department Care Team (Late [facility]) Description 10/02/2023 Lab Requisition [facility] - Derm[facility] Lab [address] [facility], [place] [phone] Tessie Schwab MD [address] [facility] [address] [place] [address] Social History Tobacco Use Types Packs/Day Years Used Date Smoking Tobacco: Former Cigarettes 0.3 5 1 - 03/10/1964 Smokeless Tobacco: Never Alcohol Use Standard Drinks/Week Comments No 0 (1 standard drink = 0.6 oz pur e alcohol) Comments No Sex and Gender Information Value Date Recorded Sex Assigned at Not on file 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 Saturnino Brady. These tests need not be, and therefore are not, approved by the [place] Food and Drug Administration. The tests are used for clinical purposes. Billing Codes Specimen Charges Stain Charges 63572 1 4 12:49 PM CDT DERMATOPATHOLOGY LABORATORY Embedded Images 4 12:49 PM CDT DERMATOPATHOLOGY LABORATORY Pathology/Cytolo gy TISSUE SPECIMEN FROM SKIN / Unknown 10/02/2023 10:42 AM CDT 10/03/2023 8:57 AM CDT us Tessie Schwab MD LAB - PATHOLOGY/CYTOLOGY ORD ERABLES Final Result DERMATOPATHOLOGY LABORATORY [facility] - Department of Dermatology [facility] Medicine [address] [place] [address], [address] [phone] documented in this encounter Visit Diagnoses Not on filedocumented in this encounter Care Teams Supervisor Pit And Auxiliaries Relationship Specialty Start Date End Date Olman Min MD [address] [place] [address] PCP - General 03/10/18 documented as of this encounter
[2024-12-19 10:56] VITALS: BP 111/76; PULSE 64; RESP 18; O2SAT 95
== END 2024-12-19 10:58 | disposition home or self-care (01) ==
PROVIDERS: Emergency Provider Emergency Medicine; PCP Family Medicine
DX: S61.411A Laceration without foreign body of right hand, initial encounter (principal); I11.0 Hypertensive heart disease with heart failure; I50.32 Chronic diastolic (congestive) heart failure; I48.20 Chronic atrial fibrillation, unspecified; J44.9 Chronic obstructive pulmonary disease, unspecified; E53.8 Deficiency of other specified B group vitamins; E03.9 Hypothyroidism, unspecified; G47.33 Obstructive sleep apnea (adult) (pediatric); Z87.891 Personal history of nicotine dependence; Z79.01 Long term (current) use of anticoagulants; Z79.899 Other long term (current) drug therapy; W06.XXXA Fall from bed, initial encounter
CPT/HCPCS: 99282

== ENCOUNTER 2025-02-16 13:30 | Outpatient (RCR) | payer MEDICARE, SELFPAY | END 2025-02-16 13:49 | disposition home or self-care (01) | LOC: ANHCPREHAB 13:30 | PROVIDERS: PCP Family Medicine; Visit Provider Internal Medicine Pulmonary Disease | DX: J45.909 Unspecified asthma, uncomplicated (principal) | CPT/HCPCS: 94625; G0239 ==

== ENCOUNTER 2025-03-11 12:48 | Outpatient (CLI) | payer MEDICARE, SELFPAY ==
--- NOTE | 2025-03-12 08:44 | WPDSIXMINUTE ---
Six Minute Walk Procedure Procedure Performed Pulmonary Stress Test (6 min walk) Six Minute Walk Six Minute Walk: This is a 6 minute walk test. The test was performed and interpreted in accordance with the 2014 ERS/ATS task force guidelines. Of note, patient used to wheeled walker and stopped at 3 minutes for approximately 15 seconds to check pulse ox for artifact readings. Findings: The patient's resting room air oxygen saturation measured by pulse oximetry was 97%, the heart rate was 78 bpm, and the modified Kaleb dyspnea score was 0. Patient ambulated for 168 meters and oxygen saturation remained 87 to 93%. At the end of the study the heart rate was 91 bpm and the modified Kaleb dyspnea score was 3. The patient did qualify for supplemental oxygen with ambulation and recommend home O2 assessment to determine patient's oxygen requirements. There are no prior studies for comparison.
== END 2025-03-11 12:49 | disposition home or self-care (01) ==
LOC: ANHPFT 12:49
PROVIDERS: PCP Family Medicine; Visit Provider Internal Medicine Pulmonary Disease
DX: J45.909 Unspecified asthma, uncomplicated (principal); M85.851 Other specified disorders of bone density and structure, right thigh
CPT/HCPCS: 94618

== ENCOUNTER 2025-03-11 15:06 | Outpatient (CLI) | payer MEDICARE, SELFPAY ==
--- NOTE | ~2025-03-11 | DEXA_ITS ---
Bone Density Report Name: MYKEL REAGAN Age: 89 Sex: Female Ethnicity: White Date of : 1935 Indication: postmenopausal; screening for osteoporosis; height loss; asthma or emphysema; hysterectomy; Referring Provider: ANDRES ANGELO Study: Bone densitometry was performed. Exam Date: March 11, 2025 Accession number: [id number] Bone Density: Region BMD T-score Z-score Classification AP Spine(L1, L2, L3) 1.006 -0.1 2.7 Normal Femoral Neck (Left) 0.816 -0.3 2.2 Normal Total Hip (Left) 0.870 -0.6 1.7 Normal Femoral Neck (Right) 0.839 -0.1 2.4 Normal Total Hip (Right) 0.799 -1.2 1.2 Osteopenia Total Hip Mean 0.835 -0.9 1.5 Normal World Health Organization criteria for BMD impression classify patients as: Normal (T-score at or above -1.0), Osteopenia (T-score between -1.0 and -2.5), or Osteoporosis (T-score at or below -2.5). 10-year Fracture Risk(1): Major Osteoporotic Fracture 7.3% Hip Fracture 1.5% Reported Risk Factors: [place] (), Neck BMD=0.816, BMI=41.5 (1) FRAX(R) Version 3.08. Fracture probability calculated for an untreated patient. Fracture probability may be lower if the patient has received treatment. Previous Exams: -- Region Exam Age BMD T-score BMD Change BMD Change Date g/cm2 vs Baseline vs Previous -- Total Hip(Left) 03/11/2025 89 0.870 -0.6 -9.9%# -9.9%# 02/15/2020 84 0.966 0.2 Total Hip(Right) 03/11/2025 89 0.799 -1.2 -14.5%# -14.5%# 02/15/2020 84 0.935 -0.1 -- *Denotes significance at 95% confidence level, LSC for Total Hip = 0.027 g/cm2 # Denotes dissimilar scan types or analysis methods Clinical Information Provided by Patient: Has used the following medications: Fosamax (i.e. alendronate), Vitamin D, Calcium Has the following medical conditions: Asthma or Emphysema, Hysterectomy Patient maximum height was 64 Menopause Age: 52 No regular weight bearing exercise Drinks caffeinated beverages Onset of menses at age 15 Number of children 4 Impression: The patient has low bone mass, based on the Right Total Hip T-score. The patient has an estimated ten-year risk of hip fracture of 1.5% and an estimated ten-year risk of major fracture of 7.3%, based on the WHO FRAX algorithm. Unable to evaluate interval change due to the use of different scan modes. Discussion: BONE DENSITY IS LOW AT ONE OR MORE SKELETAL SITES. This patient's lowest T-score is low at one or more skeletal sites. It meets the World Health Organization's (WHO) criteria for ?low bone mass? (T-score between -1.0 and -2.5). The patient's 10-year risk of fracture as calculated by FRAX is less than the threshold where pharmacological therapy is recommended by the National Osteoporosis Foundation (NOF). However, all treatment decisions require clinical judgment and consideration of individual patient factors, including patient preferences, comorbidities, previous drug use, risk factors not captured in the FRAX model (e.g., frailty, falls, vitamin D deficiency, increased bone turnover, interval significant decline in bone density) and possible under or overestimation of fracture risk by FRAX. The patient should follow a healthful lifestyle (good nutrition with adequate calcium and vitamin D, and appropriate weight-bearing exercise). Follow-Up: Consider repeating this study in 2 to 3 years to reassess this patient's status, or sooner if there is some new clinical indication. Reported by: CAPRI on 03/11/2025 3:36:00 PM. Reviewed, dictated and finalized at location A.
== END 2025-03-11 15:07 | disposition home or self-care (01) ==
LOC: MICIMG 15:07
PROVIDERS: PCP Family Medicine; Visit Provider Physician Assistant
DX: M81.0 Age-related osteoporosis without current pathological fracture (principal); M85.851 Other specified disorders of bone density and structure, right thigh
CPT/HCPCS: 77080

== ENCOUNTER 2025-04-01 13:01 | Outpatient (CLI) | payer MEDICARE, SELFPAY ==
[2025-04-01 13:30] VITALS: PULSE 85; O2SAT 94
[2025-04-01 13:32] VITALS: PULSE 123; O2SAT 87
[2025-04-01 13:33] VITALS: PULSE 119; O2SAT 92
[2025-04-01 13:45] VITALS: PULSE 86; O2SAT 94
--- OUTSIDE RECORDS SUMMARY | 2025-04-01 13:52 | XMS_ITS | Encounter Summary ---
Author Organization [facility] Address [address] [facility] [place] [address] Care Team Providers Care Physics Instructor Name Role Phone Olman Min MD Primary Care Provider [phone] Encounter Details Date Type Department Care Team (Late [facility]) Description 07/14/2024 Lab Requisition [facility] - DermPath Lab [address] [facility] [place] [phone] Tessie Schwab MD [address] [facility] 3 [place] [address] Social History Tobacco Use Types Packs/Day Years Used Date Smoking Tobacco: Former Cigarettes 0.3 5 1 - 03/10/1964 Smokeless Tobacco: Never Alcohol Use Standard Drinks/Week Comments No 0 (1 standard drink = 0.6 oz pur e alcohol) Comments No Sex and Gender Information Value Date Recorded Sex Assigned at Not on file 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[address] Gender Identity Not on file Sexual Orientation [...] Comments DERMATOPATHOLOGY Routine 07/14/2024 11:0 7 AM DUMP TRUCK DRIVER [address] documented in this encounter Results * DERMATOPATHOLOGY (07/14/2024 11:07 AM DUMP TRUCK DRIVER OFF H[address]) Case Report Dermatopathology Report Case: [id number] Authorizing Provider: Tessie Schwab MD Collected: 07/14/2024 11:07 AM Ordering Location: [facility] - Received: 07/15/2024 10:14 AM DermPath Lab Pathologist: Glenda Zuleta MD Specimens: A) - Skin, left hand B) - Skin, left jawline 12:17 PM [address] TR[address] DRIVER [address] DERMATOPATHOLOGY LABORATORY Final Diagnosis Specimen A. 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 SKIN, left jawline: EPIDERMOID CYST, SUPERFICIAL PORTIONS OF (L72.0) 12:17 PM [facility] DERMATOPATHOLOGY LABORATORY at [address] Clinical History A: R/O SCC, Non-Healing B: R/O Cyst, R/O Atypia 12:17 PM [facility] DERMATOPATHOLOGY LABORATORY Gross Description Specimen [...] measuring 6x5x1 mm. Jar 0. 12:17 PM [facility] DERMATOPATHOLOGY LABORATORY Microscopic Description Specimen [...] of the hair follicle. 5 12:17 PM DUMP TRUCK DRIVER [address] H[address] DERMATOPATHOLOGY LABORATORY Disclaimer An external and internal [...] purposes. Billing Codes Specimen Charges Stain Charges 12388 25296 1 1 5 12:17 PM DUMP TRUCK DRIVER OFF H[address] DERMATOPATHOLOGY LABORATORY Embedded Images 12:17 PM DUMP TRUCK DRIVER OFF HIG[address] DERMATOPATHOLOGY LABORATORY Pathology/Cytology TISSUE SPECIMEN FROM SKIN / Unknown 07/14/2024 11:07 AM DUMP TRUCK DRIVER [address] 07/15/2024 10:14 AM [address]MP TRUCK DRIVER [address] Miscellaneous samples (specimen) TISSUE SPECIMEN FROM SKIN / Unknown 07/14/2024 11:07 AM [address]MP TRUCK DRIVER [address] 07/15/2024 10:14 AM [address]MP TRUCK DRIVER [address] Tessie Schwab MD LAB - PATHOLOGY/CYTOLOGY ORD ERABLES Final Result DERMATOPATHOLOGY LABORATORY [facility] Department of Dermatology [facility] Medicine [address] [place] [address], [address] [phone] documented in this encounter Visit Diagnoses Not on filedocumented in this encounter Care Teams Physics Instructor Relationship Specialty Start Date End Date Olman Min MD [address] [place] [address] PCP - General 03/10/18 documented as of this encounter
--- OUTSIDE RECORDS SUMMARY | 2025-04-01 13:52 | XMS_ITS | Encounter Summary ---
Author Organization [facility] Address [address] [facility] [place] [address] Care Team Providers Care Assembler Chassis Name Role Phone Olman Min MD Primary Care Provider [phone] Encounter Details Date Type Department Care Team (Late [facility]) Description 02/03/2025 Lab Requisition [facility] - DermPath Lab [address] [facility] [place] [phone] Tessie Schwab MD [address] 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 Gender Identity Not on file Sexual Orientation [...] Priority Date/Time Associated Diagnosis Comments DERMATOPATHOLOGY Routine 02/03/2025 1:15 PM CDT Neoplasm of uncertain behavior of skin documented in this encounter Results * DERMATOPATHOLOGY (02/03/2025 1:15 PM CDT) Case Report Dermatopathology Report Case: [id number] Authorizing Provider: Tessie Schwab MD Collected: 02/03/2025 01:15 PM Ordering Location: [facility] - Received: 02/04/2025 12:33 PM DermPath Lab Pathologist: Glenda Zuleta MD Specimen: Skin, right forearm 1:29 PM CDT DERMATOPATHOLOGY LABORATORY Final Diagnosis Specimen A. 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 The specimen consists of a shave biopsy measuring 8x5x1 mm. Jar 0. 1:29 PM CDT DERMATOPATHOLOGY LABORATORY Microscopic Description Specimen A. SKIN, right forearm: The epidermis shows parakeratosis, full thickness disorderly maturation of keratinocytes, mitoses at different levels, and dyskeratotic cells. 1:29 PM CDT DERMATOPATHOLOGY LABORATORY Disclaimer An external and internal positive and negative controls are appropriate for the histochemical, immunohistochemical and immunofluorescence stain(s) in this case (if any), except where stated explicitly. The performance characteristics of the stain(s) cited in this report were developed and its performance characteristic determined by the Dermatopathology Laboratory at [facility], directed by Dr. Saturnino Brady. These tests need not be, and therefore are not, approved by the [place] Food and Drug Administration. The tests are used for clinical purposes. Billing Codes Specimen Charges Stain Charges 59418 1 5 1:29 PM CDT DERMATOPATHOLOGY LABORATORY Embedded Images 5 1:29 PM CDT DERMATOPATHOLOGY LABORATORY Pathology/Cytolo gy TISSUE SPECIMEN FROM SKIN / Unknown 02/03/2025 1:15 PM CDT 02/04/2025 12:33 PM CDT Tessie Schwab MD LAB - PATHOLOGY/CYTOLOGY ORD ERABLES Final Result DERMATOPATHOLOGY LABORATORY [facility] - Department of Dermatology [facility] [address] [place] [address], [address] [phone] documented in this encounter Visit Diagnoses Diagnosis Neoplasm of uncertain behavior of skin documented in this encounter Care Teams Assembler Chassis Relationship Specialty Start Date End Date Olman Min MD [address] [place] [address] PCP - General 03/10/18 documented as of this encounter
--- OUTSIDE RECORDS SUMMARY | 2025-04-01 13:52 | XMS_ITS | Encounter Summary ---
Author Organization [facility] Address [address] [facility] [place] [address] Care Team Providers Care Privacy Attorney Name Role Phone Olman Min MD Primary Care Provider [phone] Encounter Details Date Type Department Care Team (Late [facility]) Description 11/11/2023 Lab Requisition [facility] - DermPath Lab [address] [facility] Third Level [phone] Tessie Schwab MD [address] 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 Saturnino Brady. These tests need not be, and therefore are not, approved by the [place] Food and Drug Administration. The tests are used for clinical purposes. Billing Codes Specimen Charges Stain Charges 29030 1 4 2:34 PM CDT DERMATOPATHOLOGY LABORATORY Embedded Images 4 2:34 PM CDT DERMATOPATHOLOGY LABORATORY Pathology/Cytolo gy TISSUE SPECIMEN FROM SKIN / Unknown 11/11/2023 3:29 PM CDT 11/12/2023 1:09 PM CDT Tessie Schwab MD LAB - PATHOLOGY/CYTOLOGY ORD ERABLES Final Result DERMATOPATHOLOGY LABORATORY [facility] - Department of Dermatology [facility] Medicine [address] [place] [address], [address] [phone] documented in this encounter Visit Diagnoses Not on filedocumented in this encounter Care Teams Privacy Attorney Relationship Specialty Start Date End Date Olman Min MD [address] [place] [address] PCP - General 03/10/18 documented as of this encounter
--- OUTSIDE RECORDS SUMMARY | 2025-04-01 13:52 | XMS_ITS | Patient Health Record ---
Author Organization [facility] Address [address] [place], [place] [address] Care Team Providers Care Cook Candy Name Role Phone ANDRES GRIFFITH Unavailable [phone] Olman Min Unavailable Unavailable Reason For Referral No Information Medications Medication SIG (Take, Route, Frequency, Duration) Notes Start Date End Date Status alendronic acid 10 MG Oral Tablet ORAL alendronic acid 10 MG Oral TabletOriginal Medicationalendronic acid 10 MG Oral Tablet *Reorder from [facility] for eRx and Interaction Alerts* 013 Active Pravastatin Sodium 10 MG Oral Tablet ORAL pravastatin sodium 10 MG Ora l TabletOriginal Medicationpravastatin sodium 10 MG Oral Tablet *Reorder from [facility] for eRx and Interaction Alerts* 013 Active Metoprolol Tartrate 100 MG Oral Tablet ORAL metoprolol tartrate 100 MG O ral TabletOriginal Medicationmetoprolol tartrate 100 MG Oral Tablet *Reorder from [facility] for eRx and Interaction Alerts* 013 Active hydrochlorothiazide 25 MG / losartan potassium 100 MG Oral Tablet ORAL hydrochlorothiazide 25 MG / losartan potassium 100 MG Oral TabletOriginal Medicationhydrochlorothiazide 25 MG / losartan potassium 100 MG Oral Tablet *Reorder from [facility] for eRx and Interaction Alerts* 013 Active calcium glucarate 500 MG Oral Capsule ORAL calcium glucarate 500 MG Ora l CapsuleOriginal Medicationcalcium glucarate 500 MG Oral Capsule *Reorder from [facility] for eRx and Interaction Alerts* 013 Active aspirin 81 MG Oral Tablet ORAL aspirin 81 MG Oral TabletOriginal Medicationaspirin 81 MG Oral Tablet *Reorder from [facility] for eRx and Interaction Alerts* 013 Active apixaban 5 MG Oral Tablet [Eliquis] ORAL apixaban 5 MG Oral Tablet [Eliquis]Original Medicationapixaban 5 MG Oral Tablet [Eliquis] *Reorder from [facility] for eRx and Interaction Alerts* 013 Active levothyroxine sodium 0.05 MG Oral Tablet [Synthroid] ORAL levothyroxine sodium 0.05 MG Oral Tablet [Synthroid]Original Medicationlevothyroxine sodium 0.05 MG Oral Tablet [Synthroid] *Reorder from [facility] for eRx and Interaction Alerts* Active Social History Social History Additional Details Category Social Info Options Details Migrated Social History Migrated Social History Smoking Status : Never smoked , History of tobacco use : Plan Of Treatment No Information Insurance Providers Payer Name Payer Address Payer Phone Subscriber Number Group Number Insured Name Patient Relationship to Insured Coverage Start Date Coverage End Date [facility] [address] [place] [phone] [id number] MYKEL REAGAN Self - patient is the insured
--- OUTSIDE RECORDS SUMMARY | 2025-04-01 13:52 | XMS_ITS | Clinical Summary ---
Author Organization [facility] Address [address] [place] [address] Care Team Providers Care Draw Bench Operator Helper Name Role Phone Olman Min MD Primary Care Provider [phone] Source Comments [facility],non-owned Affiliates and Associated Physician Practices is amultiple site organization consisting of ambulatory clinics and hospital sitesin [place], [place], [place] and [place]. This disclosure is being madepursuant to the Care Everywhere program and may not contain all information available regarding this patient. 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, including shoulder 02/03/2025 Lab Requisition [facility] - DermPath Lab [address] [place] [phone] Tessie Schwab MD Neoplasm of uncertain behavior of skin from Last 3 Months Social History Tobacco Use Types Packs/Day Years Used Date Smoking Tobacco: Former Cigarettes 0.3 5 1 - 03/10/1964 Smokeless Tobacco: Never Alcohol Use Standard Drinks/Week Comments No 0 (1 standard drink = 0.6 oz pur e alcohol) Comments No Sex and Gender Information Value Date Recorded Sex Assigned at Not on file Legal 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 Female 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 Gender Identity Not on file Sexual Orientation [...] yrs (1 - 1-dose 75+ series) 2012 DEPRESSION SCREENING 06/03/2024 MEDICARE AWV CALENDAR YEAR 2024 COVID-19 VACCINE (1 - 2023-2 5 season) 2025 INFLUENZA VACCINE (#1) 2025 HIB VACCINE Aged [...] Priority Date/Time Associated Diagnosis Comments DERMATOPATHOLOGY Routine 02/23/2025 9:15 AM CDT 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 Case Report Dermatopathology Report Case: [id number] Authorizing Provider: Tessie Schwab MD Collected: 02/23/2025 09:15 AM Ordering Location: [facility] - Received: 02/23/2025 04:32 PM DermPath Lab Pathologist: Carli Brady MD Specimen: Skin, right forearm 5:50 PM CDT DERMATOPATHOLOGY LABORATORY Final Diagnosis Specimen A. SKIN, right forearm: DERMAL SCAR RESIDUAL SQUAMOUS CELL CARCINOMA NOT IDENTIFIED (L90.5) 5:50 PM CDT DERMATOPATHOLOGY LABORATORY at 1750 CDT Clinical History SCC. Check margins 5:50 PM CDT DERMATOPATHOLOGY LABORATORY Gross Description Specimen A: Received is one formalin filled container labeled with the patient's name and designated right forearm. The specimen consists of a non-oriented ellipse of skin measuring 70i12s6 mm. The epidermal surface is unremarkable. The margin is inked green. The 12 o'clock and 6 o'clock tips are submitted in cassette 1. The remainder of the ellipse is serially sectioned and submitted in cassette 2-4. Jar 0. 5:50 PM CDT DERMATOPATHOLOGY LABORATORY Microscopic Description Specimen A. SKIN, right forearm: There are fibroblasts and collagen bundles oriented parallel to the skin surface. There are elongated blood vessels, some of which are oriented perpendicular to the skin surface. No residual squamous cell carcinoma is identified. 5:50 PM CDT DERMATOPATHOLOGY LABORATORY Disclaimer An external and internal positive and negative controls are appropriate for the histochemical, immunohistochemical and immunofluorescence stain(s) in this case (if any), except where stated explicitly. The performance characteristics of the stain(s) cited in this report were developed and its performance characteristic determined by the Dermatopathology Laboratory at [facility], directed by Dr. Saturnino Brady. These tests need not be, and therefore are not, approved by the [place] Food and Drug Administration. The tests are used for clinical purposes. Billing Codes Specimen Charges Stain Charges 77082 1 5:50 PM CDT DERMATOPATHOLOGY LABORATORY Embedded Images 5:50 PM CDT DERMATOPATHOLOGY LABORATORY Pathology/Cytolo gy TISSUE SPECIMEN FROM SKIN / Unknown 02/23/2025 9:15 AM CDT 02/23/2025 4:32 PM CDT Tessie Schwab MD LAB - PATHOLOGY/CYTOLOGY ORD ERABLES Final Result DERMATOPATHOLOGY LABORATORY [facility] - Department of Dermatology [address], [address] [phone] from Last 3 Months Insurance [employer] MEDIC[employer] MEDICARE ADV [employer] MEDICARE COMMERCIAL [employer] [place] [id number] Care Teams Draw Bench Operator Helper Relationship Specialty Start Date End Date Olman Min MD [address] [place], [place] [id number] PCP - General 03/10/18
--- OUTSIDE RECORDS SUMMARY | 2025-04-01 13:52 | XMS_ITS | Encounter Summary ---
Author Organization [facility] Address [address] [facility] [place] [address] Care Team Providers Care Spot Man Name Role Phone Olman Min MD Primary Care Provider Encounter Details Date Type Department Care Team ([facility]) Description 02/23/2025 Lab Requisition [facility] Lab [address] [facility], [place] [id number] Tessie Schwab MD [address] 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 The epidermal surface is unremarkable. The [...] characteristic determined by the Dermatopathology Laboratory at [facility], directed by Dr. Saturnino Brady. These tests need not be, and therefore are not, approved by the [place] Food and Drug Administration. The tests are used for clinical purposes. 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
--- OUTSIDE RECORDS SUMMARY | 2025-04-01 13:52 | XMS_ITS | Clinical Summary ---
Author Organization [facility] Address [address] [place] [address] Care Team Providers Care Jigger Machine Operator Name Role Phone Olman Min [...] Take 1 tablet by mouth daily Active ipcluakk-fli-hl lic acid-biotin (Hair,Skin and Nails,FA-biotin ,) 100-1,500 mcg tablet Take by mouth Active biotin-silicon yvyg-H-nphajheo 5,000 mcg -10 mg-50 mg tablet extended release 06/04/2023 Active furosemide (LASIX) 40 mg tablet TAKE 1 TABLET BY MOUTH EVERY DAY 90 tablet 3 03/23/2024 Active Active Problems Problem Noted Date Diagnosed Date Precordial pain 12/12/2021 CHAN (dyspnea on exertion) 06/30/2019 Confusion 06/30/2019 Persistent atrial fibrillation 11/25/2018 Chronic anticoagulation 11/25/2018 Chronic diastolic CHF (congestive heart failure) 11/25/2018 Mixed restrictive and obstructive lung disease 0 11/25/2018 Essential hypertension 11/25/2018 Hypercholesteremia 11/25/2018 Class 3 obesity 11/25/2018 Obstructive sleep apnea johnnie debbie with continuous positive airway pressure (CPAP) 11/25/2018 Resolved Problems Problem Noted Date Diagnosed Date Resolved Date Low blood pressure reading 12/05/2022 0 03/01/2025 Preoperative cardiovascular examination 12/05/2022 08/24/2024 Encounters Date Type Department Care Team Description 03/18/2025 Telephone [facility] Cardiology [address] [facility] [address] [place] [address] Franco Wayne MD Foot Swelling 03/16/2025 1:06 PM CDT - 03/16/2025 11:59 PM CDT Hospital Encounter [facility] [address] [place] [id number] Corbin Wood MD Bilateral shoulder pain, unspecified chronicity Discharge Disposition: Discharge to home or self care 03/01/2025 12:30 PM CDT Office Visit [facility] Cardiology [address] [facility] [address] [place] [address] Franco Wayne MD Persistent atrial fibrillation (HCC) (Primary Dx); Essential hypertension; Hypercholesteremia; Chronic diastolic CHF (congestive heart failure) (HCC) 02/25/2025 Orders Only [facility] Medicine Orthopaedic Surgery [id number] [place] [address] 2nd Floor [address] [place] [address] Dayne Christy MD Bilateral shoulder pain, unspecified [...] OR INJECTION LARGE JOINT BILATERAL 11/09/2024 Bilateral FLUORO GUIDED ASPIRATION OR INJECTION LARGE JOINT BILATERAL 03/16/2025 Bilateral Medical History Medical History Date Comments Atrial fibrillation, persistent (HCC) 2008 COPD (chronic obstructive pulmonary disease) Morbid obesity (HCC) MONTY on CPAP CHF (congestive heart failure) (HCC) Asthma Arthritis 1987 Chronic bronchitis (HCC) 1987 Heart disease Thyroid disease 1965 Skin cancer Family History Medical History Relation Name Comments [...] 0 06/03/1957 - 06/03/1962 Smokeless Tobacco: Never Tobacco Cessation:Counseling Given: Not Answered Comments:Smoked when she was in her 20's Personal Safety Answer Date Recorded Have you ever been in or are you currently in a harmful physical or emotional relationship or is someone making you feel afraid or unsafe? 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 Gender Identity Female 08/27/2022 9:43 AM CDT Sexual Orientation Not on file Obstetrics History Last Filed Vital Signs Vital Sign Reading Time Taken Comments Blood Pressure 143/93 03/16/2025 2:02 PM CDT Pulse 85 03/16/2025 2:02 PM CDT Temperature - - Respiratory Rate 20 03/16/2025 2:02 PM CDT Oxygen Saturation 94% 03/16/2025 2:02 PM CDT Inhaled Oxygen Concentration - - Weight 98.4 kg (217 lb) 03/01/2025 12:35 PM CDT Height 157.5 cm (5' 2) 03/01/2025 12:35 PM CDT Body Mass Index 39.69 03/01/2025 12:35 PM CDT Plan of Treatment Health Maintenance Due Date Last Done Comments Depression Screening 1937 Osteoporosis Screening-Bone Density Scan 1937 Hepatitis B Screening 1955 Well Visit 65+ 2002 Influenza Vaccine (#1) 2025 , 02/18/2019, 04/07/2018, Additional history exists Fall Risk Assessment 03/16/2026 03/16/2025 DTaP/Tdap/Td Vaccine (2 - Td or Tdap) 12/26/2033 12/27/2023 Pneumococcal vaccine 65+ Completed 04/07/2018, 03/04 Zoster Vaccine Completed 05/11/2019, 11/01, 09/21/2013 Procedures Procedure Name Priority Date/Time Associated Diagnosis Comments FLUORO GUIDED ASPIRATION OR INJECTION LARGE JOINT BILATERAL Schedule Routine, Read Routine (OP Routine) 03/16/2025 1:57 PM CDT Bilateral shoulder pain, unspecified chronicity from Last 3 Months Results * FL Fluoro Guided Aspiration or Injection Large Joint Bilateral (GLENOHUMERAL JOINT) (03/16/2025 1:57 PM CDT) Narrative [facility] - 03/16/2025 1:58 PM CDT The images from this study are not interpreted by Radiology. Please refer to the physician's procedure / OR operative note. Dayne Christy MD IMG ROMAINE P ROCEDURES Final Result [facility] from Last 3 Months Insurance T MEDICARE GOLD AETNA MEDICARE Sessions AETNA MEDICARE GOLD Care Teams Jigger Machine Operator Relationship Specialty Start Date End Date Olman Min MD [address] [facility] [address] [place] [address] PCP - General 01/02/17
--- OUTSIDE RECORDS SUMMARY | 2025-04-01 13:52 | XMS_ITS | Encounter Summary ---
Author Organization [facility] Address [address] [facility] [place] [address] Care Team Providers Care Welder Plasma Arc Name Role Phone Olman Min MD Primary Care Provider [phone] Encounter Details Date Type Department Care Team ([facility]) Description 10/02/2023 Lab Requisition [facility] - DermPath Lab [address] 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 Saturnino Brady. These tests need not be, and therefore are not, approved by the [place] Food and Drug Administration. The tests are used for clinical purposes. Billing Codes Specimen Charges Stain Charges 05808 1 4 12:49 PM CDT DERMATOPATHOLOGY LABORATORY Embedded Images 4 12:49 PM CDT DERMATOPATHOLOGY LABORATORY Pathology/Cytolo gy TISSUE SPECIMEN FROM SKIN / Unknown 10/02/2023 10:42 AM CDT 10/03/2023 8:57 AM CDT us Tessie Schwab MD LAB - PATHOLOGY/CYTOLOGY ORD ERABLES Final Result DERMATOPATHOLOGY LABORATORY [facility] - Department of Dermatology [facility] Medicine [address] [place] [address], [address] [phone] documented in this encounter Visit Diagnoses Not on filedocumented in this encounter Care Teams Welder Plasma Arc Relationship Specialty Start Date End Date Olman Min MD [address] [place] [address] PCP - General 03/10/18 documented as of this encounter
--- NOTE | 2025-04-01 14:14 | HOMEO2EVAL ---
Evaluation was performed at [facility] Home Oxygen Evaluation RC: Home Oxygen (O2) Evaluation Start: 04/01/25 14:10 Freq: Status: Active Protocol: RPE Activity Type Activity Date Activity User E-sign Co-sign Detail Recorded Client Recorded Date Recorded By Document 04/01/25 13:30 MAKENZIE [email or web address] 04/01/25 14:13 MAKENZIE Document 04/01/25 13:32 MAKENZIE [email or web address] 04/01/25 14:13 MAKENZIE Document 04/01/25 13:33 MAKENZIE [email or web address] 04/01/25 14:13 MAKENZIE Document 04/01/25 13:45 MAKENZIE [email or web address] 04/01/25 14:13 MAKENZIE 04/01/25 04/01/25 04/01/25 13:30 13:32 13:33 Home O2 Evaluation [Oxygen] -Test Phase Resting Exercise Exercise -Oxygen Delivery Room Air Room Air Nasal Cannula -Oxygen Flow Rate (L/min) 2 [Pulse Oximetry] -Pulse Oximetry (90-100 %) 94 87 L 92 [Pulse Rate] -Pulse Rate (60-100 beats/min) 85 123 H 119 H [Evaluation] -Activity Tolerance Excellent [Exercise] -Ambulation Distance (feet) 250 -Ambulation Distance (meters) 76.19 [Comments] -Home Oxygen Evaluation Comments Pt requires 2 liters home O2 with exertion [Charges] -Evaluation Charges O2 Evaluation by Pulmonary 04/01/25 13:45 Home O2 Evaluation [Oxygen] -Test Phase Resting -Oxygen Delivery Room Air -Oxygen Flow Rate (L/min) [Pulse Oximetry] -Pulse Oximetry (90-100 %) 94 [Pulse Rate] -Pulse Rate (60-100 beats/min) 86 [Evaluation] -Activity Tolerance [Exercise] -Ambulation Distance (feet) -Ambulation Distance (meters) [Comments] -Home Oxygen Evaluation Comments [Charges] -Evaluation Charges
== END 2025-04-01 13:02 | disposition home or self-care (01) ==
LOC: ANHPFT 13:02
PROVIDERS: PCP Family Medicine; Visit Provider Internal Medicine Pulmonary Disease
DX: J45.909 Unspecified asthma, uncomplicated (principal); G47.33 Obstructive sleep apnea (adult) (pediatric)
CPT/HCPCS: 94618

== ENCOUNTER 2025-06-01 20:21 | Emergency (ER) | payer MEDICARE, SELFPAY ==
--- NOTE | ~2025-06-01 | XR_ITS ---
XR knee LT min 4V INDICATION: L knee injury s/p fall . COMPARISON: None. FINDINGS: Frontal, lateral and oblique views of the left knee demonstrate knee arthroplasty. Components are well-seated. There is soft tissue swelling in the anterior knee. No acute fracture. There is no joint effusion. IMPRESSION: Radiographic examination of the left knee demonstrates no acute fracture or dislocation. Knee arthroplasty is in place. There is soft tissue swelling in the anterior knee. Reviewed, dictated and finalized at location [facility] IMPRESSION: Radiographic examination of the left knee demonstrates no acute fracture or dis location. Knee arthroplasty is in place. There is soft tissue swelling in the anterior knee.
--- OUTSIDE RECORDS SUMMARY | 2025-06-01 20:23 | XMS_ITS | Clinical Summary ---
Author Organization [facility] Address [address] [place] [address] Care Team Providers Care Timekeeper Supervisor Name Role Phone Olman Min MD [...] Take 1 tablet by mouth daily Active zvehgwom-qkl-ti lic acid-biotin (Hair,Skin and Nails,FA-biotin ,) 100-1,500 mcg tablet Take by mouth Active biotin-silicon fvgy-R-ebfnlrad 5,000 mcg -10 mg-50 mg tablet extended release 06/04/2023 Active furosemide (LASIX) 40 mg tablet TAKE 1 TABLET BY MOUTH EVERY DAY 90 tablet 3 04/12/2025 Active Active Problems Problem Noted Date Diagnosed [...] Type Department Care Team Description 03/18/2025 Telephone [facility] Cardiology [address] [place] [address] Franco Wayne MD Foot Swelling 03/16/2025 1:06 PM CDT - 03/16/2025 11:59 PM CDT Hospital Encounter 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
--- OUTSIDE RECORDS SUMMARY | 2025-06-01 20:23 | XMS_ITS | Patient Health Record ---
Author Organization [facility] Address [address] [place], [place] [id number] Care Team Providers Care Inspector Circuitry Negative Name Role Phone ANDRES GRIFFITH Unavailable [phone] Olman Min Unavailable Unavailable Reason For Referral No Information Medications Medication SIG (Take, Route, Frequency, Duration) Notes Start Date End Date Status alendronic acid 10 MG Oral Tablet ORAL alendronic acid 10 MG Oral TabletOriginal Medicationalendronic acid 10 MG Oral Tablet *Reorder from [employer] for eRx and Interaction Alerts* 013 Active Pravastatin Sodium 10 MG Oral Tablet ORAL pravastatin sodium 10 MG Ora l TabletOriginal Medicationpravastatin sodium 10 MG Oral Tablet *Reorder from [employer] for eRx and Interaction Alerts* 013 Active Metoprolol Tartrate 100 MG Oral Tablet ORAL metoprolol tartrate 100 MG O ral TabletOriginal Medicationmetoprolol tartrate 100 MG Oral Tablet *Reorder from [employer] for eRx and Interaction Alerts* 013 Active hydrochlorothiazide 25 MG / losartan potassium 100 MG Oral Tablet ORAL hydrochlorothiazide 25 MG / losartan potassium 100 MG Oral TabletOriginal Medicationhydrochlorothiazide 25 MG / losartan potassium 100 MG Oral Tablet *Reorder from [employer] for eRx and Interaction Alerts* 013 Active calcium glucarate 500 MG Oral Capsule ORAL calcium glucarate 500 MG Ora l CapsuleOriginal Medicationcalcium glucarate 500 MG Oral Capsule *Reorder from [employer] for eRx and Interaction Alerts* 013 Active aspirin 81 MG Oral Tablet ORAL aspirin 81 MG Oral TabletOriginal Medicationaspirin 81 MG Oral Tablet *Reorder from [employer] for eRx and Interaction Alerts* 013 Active apixaban 5 MG Oral Tablet [Eliquis] ORAL apixaban 5 MG Oral Tablet [Eliquis]Original Medicationapixaban 5 MG Oral Tablet [Eliquis] *Reorder from [facility] for eRx and Interaction Alerts* 013 Active levothyroxine sodium 0.05 MG Oral Tablet [Synthroid] ORAL levothyroxine sodium 0.05 MG Oral Tablet [Synthroid]Original Medicationlevothyroxine sodium 0.05 MG Oral Tablet [Synthroid] *Reorder from [facility] for eRx and Interaction Alerts* Active Social [...] Coverage Start Date Coverage End Date [facility] [address] [place] [address] [id number] MYKEL REAGAN Self - patient is the insured
--- OUTSIDE RECORDS SUMMARY | 2025-06-01 20:23 | XMS_ITS | Data Portability ---
Author Organization [facility], [facility] Address [address] [address] Assessment No assessment recorded. Plan of Treatment [...] more view No observ ation record ed. [email or web address] Not Available 14:34:45 03/26/20 24 08/27/2022 XR, shoul obed, 2 or more view No observ ation record ed. [email or web address] Not Available 14:34:46 Result Notes None recorded. Procedures Surgical History Date Name Laterality Status Provider Name and Address Organization Details Recorded Time Radiographs completed Alexandre Thomas [address] [place] [address], [place], [address], [employer] 03/30/2024 17:40:04 Imaging Results None recorded. Procedure [...] Updated DateTime 03/26/2024 154.94 cm 41.9 kg/m2 443962.51 g Elba Gordon [facility] 03/26/2024 16:34:02 Social History Question Answer Notes LastModified by Organizat ion Details LastModified Time Tobacco Smoking Status Never Smoker Elba burgess [place] [facility], [facility] 03/26/2024 16:59:37 What Is Your Relationship Status? [email or web address] Information not available 03/26/2024 Sex: Unknown Functional Status Question Answer Note LastModified by Organizat ion Details LastModified Time What is your level of alcohol consumption? None [email or web address] Information not available 03/26/2024 Are you currently employed? No retired [email or web address] Information not available 03/26/2024 What is your exercise level? None [email or web address] Information not available 03/26/2024 Mental Status None recorded. Family History Relationship Description Onset Age of this Age Resolved Age Notes LastModified by Organization Details LastModified Time Unspecified Relation Arthritis [email or web address] Not available 03/04 16:58:29 Unspecified Relation Heart disease [email or web address] Not available 03/26 16:58:40 Unspecified Relation Hypercholest erolemia [email or web address] Not available 03/26 16:58:48 Unspecified Relation Asthma [email or web address] Not available 2023 16:58:54 Unspecified Relation Hypertensive disorder [email or web address] Not available 03/26 16:59:02 Unspecified Relation Malignant neoplastic disease [email or web address] Not available 03/26 16:59:12 Notes:thyroid issue not note d-unspecified Medical History Condition Response Arthritis Y Tendon Tear Y High Cholesterol Y Skin Cancer Y Hernia Y Heart Disease Y Hypertension Y Asthma Y Gynecological HistoryNo gynecological history recorded. Obstetrics History GPAL:G 0 P 0 0 0 0 Past Encounters Encounter ID Performer Location Encounter Start Date Encounter Closed Date Diagnosis/Indication Diagnosis SNOMED-CT Code Diagnosis ICD10 Code Diagnosis IMO Codes Diagnosis Note [id number] Alexandre Thomas [facility] [address] [place] [address] 03/26/2024 13:47:24 03/26/2024 15:17:56 Bilateral shoulder joint pain [id number] 5652744 M25.511 M25.512 Bilateral shoulder osteoarthritis [id number] 17867 M19.011 M19.012 We had a lengthy discussion [...] 03/23/2024 1 MEDICARE [place]: [facility] [id number] [facility] 03/23/2024 2 [employer] (MEDICARE REPLACEMENT/ ADVANTAGE - PPO) [id number] [facility] [id number] [facility] 03/26/2024 1 [employer] - PRIME (MEDICARE REPLACEMENT/ ADVANTAGE - HMO) [id number] [facility] [id number] [facility] 03/26/2024 1 [employer] (HMO) [id number] [facility] [id number] [facility] Notes Date Note Type Note Provider Name and Address Organization Details Recorded Time 03/26/2024 text/html 88-year-old female presents today chief complaint bilateral shoulder pain.She [...] relief lasting almost 6 months. Alexandre Thomas [address] [facility], [place], [address], [facility], [facility] 03/30/2024 17:41:33 OBGyn Episode No OBEpisode recorded.
[2025-06-01 20:31] VITALS: BP 129/65; PULSE 91; RESP 18; TEMP 36.6; O2SAT 97
--- NOTE | 2025-06-01 22:28 | PC.NURSE ---
Pt. to x-ray
--- NOTE | 2025-06-01 22:39 | ED.FALL ---
HPI - Fall General Chief Complaint: Fall Stated Complaint: fall, left leg pain Time Seen by Provider: 06/01/25 21:59 History of Present Illness HPI Narrative: Patient is an 89-year-old female who presents to the ER after sustaining fall earlier this evening. She reports she landed on her left knee, which is now very edematous. Patient denies any head injury. She reports she is on Eliquis. Patient reports she landed on the asphalt and denies any other injuries to her body. She endorses a history of high blood pressure, COPD, and CHF. Related Data Home Medications ?Medication ?Instructions ?Recorded ?Confirmed ?Last Taken ?Type furosemide 40 mg tablet 40 mg PO DAILY 01/23/23 01/13/25 Unknown History calcium 600 mg (as carbonate)-vit tablet PO 11/27/24 01/13/25 Unknown History D3 10 mcg (400 unit) chewable tablet (Calcium 600 with Vitamin D3) cetirizine 10 mg tablet 10 mg PO DAILY PRN 11/27/24 01/13/25 Unknown History cholecalciferol (vitamin D3) 25 25 mcg PO DAILY 11/27/24 01/13/25 Unknown History mcg (1,000 unit) capsule cyanocobalamin (vitamin B-12) 1,000 mcg PO DAILY 11/27/24 01/13/25 Unknown History 1,000 mcg capsule omeprazole 20 mg capsule,delayed 20 mg PO DAILY 11/27/24 01/13/25 Unknown History release Allergies Allergy/AdvReac Type Severity Reaction Status Date / Time No Known Allergies Allergy Verified 06/01/25 20:42 Review of Systems Review of Systems: All systems reviewed & are unremarkable except as noted in HPI and below PMFSH Past Medical History Medical History Left thyroid nodule Heart failure, diastolic, due to HTN Morbid obesity COPD (chronic obstructive pulmonary disease) Chronic diastolic CHF (congestive heart failure) Obesity Vitamin B12 deficiency MONTY (obstructive sleep apnea) Asthma Depression Hypothyroidism, unspecified IFG (impaired fasting glucose) Chronic a-fib Heart failure Essential (primary) hypertension Family History Family History Sibling Family history of malignant neoplasm Hypertension High cholesterol Acute myocardial infarction Mother Family history of coronary artery disease Father Family history of malignant neoplasm of urinary bladder Cancer Social History Social History Smoking packs per day: 0.25 Smoking cigarettes per day: 5.0 Years smoked: 5 Smoking pack-years: 1.25 Smoking status: Former smoker Tobacco type: cigarettes Smoking end date: 06/03/1961 Alcohol intake: never Substance use: never Substance use type: does not use Living arrangements: alone Occupation/Education: retired Gender identity (if verbalized by the patient): Female Sexual Orientation (if Verbalized by the Patient): Straight or Heterosexual Spiritual care concerns: No Exam Narrative: GENERAL: Well appearing, well-nourished, non-toxic, in no acute distress. HEAD: Normocephalic, atraumatic. NECK: Supple. No adenopathy, no masses. RESPIRATORY: Airway patent, respirations nonlabored. Clear to auscultation bilaterally, no rales, rhonchi, wheezing. CARDIOVASCULAR: Regular rate and rhythm without murmurs, rubs, or gallops. Peripheral pulses 2+ and equal bilaterally. ABDOMINAL: Soft, nontender, nondistended, no hepatosplenomegaly. Normoactive BS. MUSCULOSKELETAL: Moves all extremities. Strength/ROM intact without gross deformities. Significantly swollen left knee. SKIN: Warm, dry, normal color. No rashes. NEURO: A&O X3. Speech clear. Cranial nerves II-XII intact. No ataxic movements. PSYCHIATRIC: Appropriate mood and affect. Normal interaction. Course Vital Signs Vital signs: Vital Signs Temperature 36.6 C 06/01/25 20:31 Pulse Rate 91 06/01/25 20:31 Respiratory Rate 18 06/01/25 20:31 Blood Pressure 129/65 06/01/25 20:31 Pulse Oximetry 97 06/01/25 20:31 Oxygen Delivery Room Air 06/01/25 20:31 Temperature 36.6 C 06/01/25 20:31 Pulse Rate 91 06/01/25 20:31 Respiratory Rate 18 06/01/25 20:31 Blood Pressure 129/65 06/01/25 20:31 Pulse Oximetry 97 06/01/25 20:31 Oxygen Delivery Room Air 06/01/25 20:31 [facility] MDM Narrative Medical decision making narrative: Patient is an 89-year-old female who presents to the ER after sustaining fall earlier this evening. She reports she landed on her left knee, which is now very edematous. Patient denies any head injury. She reports she is on Eliquis. Patient reports she landed on the asphalt and denies any other injuries to her body. She endorses a history of high blood pressure, COPD, and CHF. Labs Ordered: None necessary Imaging Ordered: Left knee x-ray Medications Ordered: None necessary Results: Patient's left knee x-ray indicates no acute osseous abnormalities or dislocation. Diagnosis: Left knee strain, left knee sprain Consults: Orthopedic surgery (outpatient) Patient Education/Shared MDM: Results of imaging shared with patient. She continues to decline pain medication administration. Patient will be placed in an Gal wrap here in the ER prior to discharge. She will not be discharged home with any new prescriptions, but was advised to take Tylenol as needed for pain control and keep her Gal wrap on until re-evaluation. Pt declined a leg immobilizer. Strict return precautions provided. Patient verbalized understanding and is in agreement with plan. Vital signs stable at time of discharge. All questions answered. Differential Diagnosis Differential Diagnosis: Left knee fracture, left knee strain, left knee sprain Imaging Data Attestation: I personally reviewed and interpreted this imaging study as follows: Radiologist's impression: ITS Impressions Knee X-Ray 06/01/25 22:44 IMPRESSION: Radiographic examination of the left knee demonstrates no acute fracture or dislocation. Knee arthroplasty is in place. There is soft tissue swelling in the anterior knee. Discharge Plan Discharge Clinical Impression: Strain of left knee, Left knee sprain Patient Disposition: Home Condition: Stable Instructions: Antibiotic Form, P.R.I.C.E. Treatment (ED) Additional Instructions: Please return to the ER with any worsening symptoms. Follow-up with Orthopedic surgery as soon as possible for further evaluation. Take all medications as prescribed, including regularly scheduled medications. You may take Tylenol as needed for pain control. Please keep your Gal wrap on your knee for further support. Follow the rice acronym. Patient Language: Bengali Prescriptions: No Action furosemide 40 mg tablet 40 mg PO DAILY Calcium 600 with Vitamin D3 600 mg-10 mcg (400 unit) tablet,chewable PO cholecalciferol (vitamin D3) 25 mcg (1,000 unit) capsule 25 mcg PO DAILY cyanocobalamin (vitamin B-12) 1,000 mcg capsule 1,000 mcg PO DAILY omeprazole 20 mg capsule,delayed release(DR/EC) 20 mg PO DAILY cetirizine 10 mg tablet 10 mg PO DAILY PRN albuterol sulfate 2.5 mg /3 mL (0.083 %) solution for nebulization 2.5 mg inhalation Q4-6H PRN (Reason: shortness of breath or wheezing) Qty: 180 3RF Eliquis 5 mg tablet 5 mg PO BID Qty: 200 2RF albuterol sulfate 90 mcg/actuation HFA aerosol inhaler 2 inh inhalation Q4H PRN (Reason: shortness of breath or wheezing) Qty: 8.5 3RF duloxetine 60 mg capsule,delayed release(DR/EC) See Rx Instructions .ROUTE .COMPLEX Qty: 90 2RF Dose Instruction: TAKE 1 CAPSULE BY MOUTH EVERY DAY Rx Instructions: TAKE 1 CAPSULE BY MOUTH EVERY DAY pravastatin 20 mg tablet 20 mg PO DAILY Qty: 100 2RF pxmmqnbhlcy-ohttsmcxv-lixktrlk 200-62.5-25 mcg blister with device 1 inh inhalation DAILY Qty: 60 6RF levothyroxine 75 mcg tablet See Rx Instructions .ROUTE .COMPLEX Qty: 90 0RF Dose Instruction: TAKE 1 TABLET BY MOUTH EVERY DAY Rx Instructions: TAKE 1 TABLET BY MOUTH EVERY DAY metoprolol tartrate 50 mg tablet See Rx Instructions .ROUTE .COMPLEX Qty: 200 2RF Dose Instruction: TAKE 1 TABLET BY MOUTH EVERY 12 HOURS Rx Instructions: TAKE 1 TABLET BY MOUTH EVERY 12 HOURS valsartan 160 mg tablet 160 mg PO DAILY Qty: 100 2RF Follow-up/Referrals: Olman Min MD [Primary Care Provider, Family Practice] Lawrence Jean MD [Physician, Orthopedics] Time of Disposition: 23:14
[2025-06-01 23:30] VITALS: BP 127/83; PULSE 86; RESP 16; TEMP 36.4; O2SAT 97
== END 2025-06-01 23:32 | disposition home or self-care (01) ==
PROVIDERS: Emergency Provider Registered Nurse; PCP Family Medicine
DX: S86.912A Strain of unspecified muscle(s) and tendon(s) at lower leg level, left leg, initial encounter (principal); S83.92XA Sprain of unspecified site of left knee, initial encounter; I11.0 Hypertensive heart disease with heart failure; I48.20 Chronic atrial fibrillation, unspecified; I50.32 Chronic diastolic (congestive) heart failure; J44.9 Chronic obstructive pulmonary disease, unspecified; E53.8 Deficiency of other specified B group vitamins; E03.9 Hypothyroidism, unspecified; G47.33 Obstructive sleep apnea (adult) (pediatric); F32.A Depression, unspecified; Z87.891 Personal history of nicotine dependence; Z79.01 Long term (current) use of anticoagulants; Z79.899 Other long term (current) drug therapy; W19.XXXA Unspecified fall, initial encounter
CPT/HCPCS: 73564; 99283